=== PATIENT | female | born 1940 | race Caucasian/White ===

== ENCOUNTER 2017-11-27 12:08 | Inpatient (IN) | payer OTHER, MEDICARE ==
[~2017-11-27] VITALS: Ht 152.4 cm; Wt 56.2 kg
[~2017-11-27 12:08] MED LIST: ACETAMINOPHEN500 M4 PO; ALLOPURINOL300 M1 PO; AMIODARONE HCL100 M1 PO; ANASTROZOLE1 M1 PO; ASPIRIN EC81 M1 PO; AUGMENTIN 500-1 EACH PO; CALCIUM500 M1 PO; CYCLOBENZAPRINE10 M1 PO; CYCLOBENZAPRINE5 M2 PO; DULOXETINE HCL30 MG PO; ELIQUIS5 M1 PO; FASLODEX250 MG/5 M; FENTANYL1 EAC4 TOP; FISH OIL 1,0001 EAC2 PO; FUROSEMIDE40 M1 PO; HYDROCODON-ACE1 EAC1 PO; JANUVIA100 M1 PO; LEVOTHYROXINE150 MCG PO; LOSARTAN POTAS100 M1 PO; MAGNESIUM OXID400 M1 PO; MAGNESIUM400 M1 PO; METFORMIN HCL1000 M1 PO; METOPROLOL TART25 M1 PO; MORPHINE SULFAT15 M4 PO; MORPHINE SULFAT30 M7 PO; POTASSIUM CHLO10 ME4 PO; PRAVASTATIN SOD40 M2 PO; PREDNISONE20 M1 PO; PROAIR HFA8.5 GM INH; SYNTHROID125 MCG PO; VITAMIN B-121000 MC3 PO; VITAMIN D31000 UNI1 PO
--- NOTE | 2017-11-27 12:18 | ED DYSPNEA/ASTHMA COMPLAINT ---
History of Present Illness General Chief Complaint: General Adult Stated Complaint: PT HAVING PROBLEM BREATHING Source: patient, family, old records Exam Limitations: no limitations Vital Signs & Intake/Output Vital Signs & Intake/Output Vital Signs Date Time Temp Pulse Resp B/P B/P Pulse O2 O2 Flow FiO2 Mean Ox Delivery Rate 11/27 1257 92 11/27 1220 97.6 69 20 174/69 95 Room Air Allergies Coded Allergies: NO KNOWN ALLERGIES (NKDA) (06/12/13) Reconcile Medications Allopurinol 300 MG TABLET 1 TAB PO DAILY GOUT (Reported) Amiodarone HCl 100 MG TABLET 1 TAB PO DAILY AFIB (Reported) Apixaban (Eliquis) 5 MG TABLET 1 TAB PO BID A FIB (Reported) Aspirin (Ecotrin*) 81 MG TABLET.DR 1 TAB PO QAM HEART/BLOOD (Reported) Calcium Carbonate (Calcium) 500 MG TABLET 1,500 MG PO DAILY SUPPLEMENT ( Reported) Cholecalciferol (Vitamin D3) (Vitamin D3) 1,000 UNIT CAPSULE 1 CAP PO QAM SUPPLEMENT (Reported) Cyanocobalamin (Vitamin B-12) 1,000 MCG TABLET 1 TAB PO DAILY SUPPLEMENT ( Reported) Duloxetine HCl 30 MG CAPSULE.DR 2 TAB PO DAILY DEPRESSION/NERVE PAIN ( Reported) SWITCHED FROM 3 PILLS (90MG) TO 2 PILLS (60MG) DAILY Fentanyl 75 MCG/HOUR PATCH.TD72 1 PAT TOP Q3D PAIN (Reported) Fulvestrant (Faslodex) 250 MG/5 ML SYRINGE BREAST CANCER (Reported) Furosemide 40 MG TABLET 1 TAB PO QAM DIURETIC (Reported) Levothyroxine Sodium (Synthroid) 125 MCG TABLET 1 TAB PO DAILY HYPOTHYROID ( Reported) Magnesium Oxide 400 MG TABLET 1 TAB PO BID SUPPLEMENT (Reported) Metoprolol Tartrate 25 MG TABLET 1 TAB PO BID HEART/BP (Reported) Morphine Sulfate 30 MG TABLET 1 TAB PO 4 TIMES/DAY PAIN (Reported) [place]-3/Dha/Epa/Fish Oil (Fish Oil 1,000 MG Softgel) 1 EACH CAPSULE 1 CAP PO DAILY SUPPLEMENT (Reported) Potassium Chloride 10 MEQ TABLET.ER 2 TAB PO QPM SUPPLEMENT (Reported) Pravastatin Sodium 40 MG TABLET 1 TAB PO QPM CHOLESTEROL (Reported) Triage Nurses Notes Reviewed? yes Onset: Abrupt Duration: week(s): (2), constant, getting worse Timing: recent history Severity: moderate Prior Episodes/Possible Cause: occasional episodes Associated Symptoms: cough, wheezing HPI: 77 year old female with history of CAD S/P stent, Invasive ductal left breast carcinoma status post mastectomy on 03/08/2011, followed by chemotherapy, radiation with the spine/pelvis metastasis now on CHEMOtherapy w/ dr meng, HTN, HDL, DM, hypothyroidism, history of atrial fibrillation on a eliqus, presents tot he ER complaining of progressively worsening shortness of breath and nonproductive cough for the past 2 weeks getting worse she ran out of all of her inhalers and nebulizer medications a few weeks ago. She called her cognos bi administrator Dr. Carter who advised that she come to the ER. She denies fevers chills chest pain leg swelling abdominal pain. (Jonathan Stack) Past History Travel History Traveled to [place] past 21 day No Medical History Any Pertinent Medical History? see below for history Neurological: ALZHEIMERS? 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 No (Jonathan Stack) Review of Systems Review of Systems Constitutional: Reports: see HPI. Comments Review of systems: See HPI, All other systems negative. Constitutional, no chills no fever HEENT: no sore throat no congestion Cardiovascular: No chest pain Skin: no rashes, no change in skin Respiratory: dyspnea cough no sputum GI: No nausea no vomiting, no diarrhea : No dysuria Muscle skeletal: No joint pain, no back pain, no neck pain Neurologic: , no headache Psych: No stress Heme/endocrine: No bruising (Jonathan Stack) Physical Exam Physical Exam General Appearance: cachetic Respiratory: wheezing Comments: Well-developed well-nourished person in no acute distress HEENT: Normal EENT exam; PERRL, EOMI, HEAD is atraumatic. moist mucous membranes. Neck: Supple, normal range of motion Back:Full range of motion Cardiovascular: Regular rate and rhythms no murmurs rub Respiratory: Chest nontender.There were no bony deformities, no asymmetry. No respiratory distress. Patient speaking in 3-4 word sentences diffuse wheezing bilaterally no rhonchi no rales Abdomen: Soft, nontender nondistended, no appreciable organomegaly. Normal bowel sounds. No rebound/guarding, No ascites. Extremity: No edema, full range of motion of extremities, Neuro: Alert oriented x3, motor sensory normal, There were no obvious focal neurologic abnormalities. Skin: No appreciable rash on exposed skin, skin is warm and dry. Psych: Mood and affect is normal, memory and judgment is normal. Core Measures ACS in differential dx? Yes CVA/TIA Diagnosis No Sepsis Present: No Sepsis Focused Exam Completed? No (Matthew TAPIA,Jonathan) Progress Differential Diagnosis: asthma, AMI, bronchitis, CHF, COPD, pulmonary embolism, pneumonia, pneumothorax, unstable angina Plan of Care: Orders Procedure Date/time Status CBC WITHOUT DIFFERENTIAL 11/28 0600 Active BASIC ELECTROLYTES PLUS BUN&CR 11/28 0600 Active Heart Healthy Diet 11/27 D Active Pathway - chart 11/27 1642 Active TRC EVALUATION (GEN) 11/27 1526 Active Pathway - chart 11/27 1526 Active House Staff 11/27 1526 Active Code Status 11/27 1526 Active Patient Data 11/27 1414 Active ED Holding Orders 11/27 1346 Active Admit to inpatient 11/27 1346 Active Vital Signs 11/27 1346 Active Code Status 11/27 1346 Complete Intake & Output 11/27 1330 Active VIRAL CULTURE 11/27 1305 Active PROTHROMBIN TIME 11/27 1239 Complete EKG 11/27 1220 Active Telemetry/Seismology Technical Officer 11/27 1219 Active RAPID VIRAL INFLUENZA A 11/27 1219 Complete BLOOD CULTURE 11/27 1219 Active TROPONIN LEVEL 11/27 1219 Complete COMPREHENSIVE METABOLIC PANEL 11/27 1219 Complete CBC WITHOUT DIFFERENTIAL 11/27 1219 Complete B-TYPE NATRIURETIC PEP (BNP) 11/27 1219 Complete VTE Mechanical Prophylaxis 11/27 UNK Active Intake & Output 11/27 UNK Active Activity/Ambulation 11/27 UNK Active Current Medications Sig/Ck Start time Last Medication Dose Stop Time Status Admin Allopurinol 300 MG DAILY 11/28 1000 AC (Zyloprim) Aspirin Buffered 81 MG QAM 11/28 1000 AC (Ecotrin) Calcium Carbonate 1,500 MG DAILY 11/28 1000 AC (TUMS) Cholecalciferol 1,000 IU DAILY 11/28 1000 AC (Vitamin D) Cyanocobalamin 1,000 MCG DAILY 11/28 1000 AC (Vitamin B12) Fish Oil 1,050 MG DAILY 11/28 1000 AC ([place]-3) Levothyroxine Sodium 0.125 MG DAILY 11/28 1000 AC (Synthroid) Oseltamivir Phosphate 30 MG DAILY 11/28 1000 AC (Tamiflu) 12/02 0959 Apixaban 5 MG BID 11/27 2200 AC (Eliquis) Methylprednisolone 40 MG Q6 11/27 1800 AC (Solumedrol) Atorvastatin Calcium 40 MG 1700 11/27 1700 AC (Lipitor) Acetaminophen 650 MG Q6P PRN 11/27 1645 UNVr (Tylenol) Acetaminophen 1,000 MG Q6P PRN 11/27 1645 UNVr (Ofirmev) Polyethylene Glycol 17 GM AT BEDTIME PRN 11/27 1645 UNVr (Miralax) Senna/Docusate Sodium 1 TAB AT BEDTIME PRN 11/27 1645 UNVr (Senokot S) Metoprolol Tartrate 25 MG BID 11/27 1534 AC (Lopressor) Furosemide 40 MG QAM 11/27 1533 AC (Lasix) Duloxetine HCl 60 MG DAILY 11/27 1531 AC (Cymbalta) Fentanyl Citrate 75 MCG Q3D 11/27 1530 AC (Duragesic) Magnesium Oxide 400 MG BID 11/27 1530 AC (Mag-Ox) Amiodarone HCl 100 MG DAILY 11/27 1528 AC (Cordarone) Oseltamivir Phosphate 75 MG ONCE ONE 11/27 1400 CAN (Tamiflu 75MG) 11/27 1401 Laboratory Tests 11/27/17 1305: Virus Culture Pending 11/27/17 1259: Anion Gap 10, Estimated GFR 54 L, BUN/Creatinine Ratio 13.0, Glucose 99, Calcium 9.5, Total Bilirubin 0.3, AST 55 H, ALT 39, Alkaline Phosphatase 178 H , Troponin I 0.05, Too-Q-Hcmimqazuwk Pept 6640 H, Total Protein 6.5, Albumin 3.9, Globulin 2.6, Albumin/Globulin Ratio 1.5, PT 13.2 H, INR 1.26 H, CBC w Diff NO MAN DIFF REQ, RBC 3.77 L, MCV 80.8 L, MCH 25.8 L, MCHC 32.0 L, RDW 17.4 H, MPV 8.7, Gran % 48.8, Lymphocytes % 39.5, Monocytes % 9.1, Eosinophils % 2.5, Basophils % 0.1, Absolute Granulocytes 1.8, Absolute Lymphocytes 1.5, Absolute Monocytes 0.3, Absolute Eosinophils 0.1, Absolute Basophils 0 Microbiology 11/27 1323 BLOOD: Blood Culture - RECD 11/27 1305 NASOPHARYN: Influenza Virus A & B Rapid Smear - COMP INFLUENZA TYPE A 11/27 1259 BLOOD: Blood Culture - RECD PT MED WITH SOLUMEDROL 125MG IV, DUONEB, LABS ORDERED. CASE D/W DR SÁNCHEZ AGREES WITH PLAN PT FEELING IMPROVED AFTER BREATHING [place] 1330- PT SEEN BY DR CARTER IN DEPT AFTER DISCUSSION WITH PT AND FAMILY THEY ARE IN AGREEMENT WITH PLAN AND NEED FOR ADMISSION lorrie spoke with dr rudd will admit Diagnostic Imaging: Viewed by Me: Radiology Read. Discussed w/RAD: Radiology Read. Radiology Impression: PATIENT: LINDA APODACA PRESENT AGE: 77 PATIENT ACCOUNT NO: [id number] : 40 LOCATION: [facility] ORDERING PHYSICIAN: Jonathan TAPIA SERVICE DATE: 11/27/17-1232 EXAM TYPE: RAD - XRY- PORTABLE CHEST XRAY EXAMINATION: XR PORTABLE CHEST CLINICAL INFORMATION: Cough, dyspnea COMPARISON: 05/10/2016 TECHNIQUE: Portable frontal view of the chest was obtained. FINDINGS: Chronic right rib fracture deformities again seen. Degenerative changes of the bilateral shoulders. Left axillary surgical clips. Cardiac silhouette remains prominent. There is diffuse interstitial prominence, similar to the prior study. No focal consolidation or mass. No pleural effusion or pneumothorax. IMPRESSION: Chronic diffuse interstitial opacity, most likely representing chronic bronchitis or reactive airways disease. No acute pulmonary disease seen. DICTATED BY: Jamil Summers MD DATE/TIME DICTATED:11/27/171305 STATION CAPTAIN:SHAHLA DATE/TIME TRANSCRIBED:11/27/171305 CONFIDENTIAL, DO NOT COPY WITHOUT APPROPRIATE AUTHORIZATION. <Electronically signed in Other Vendor System> SIGNED BY: Jamil Summers MD 11/27/17 1312 Initial ED EKG: normal intervals, normal p-waves, normal QRS complex, normal sinus rhythm Prior EKG: unchanged Rhythm Strip: normal sinus rhythm (Jonathan Stack) Departure Departure Time of Disposition: 1438 Disposition: STILL A PATIENT Condition: Stable Clinical Impression Primary Impression: Influenza Secondary Impressions: COPD exacerbation Referrals: Judith Carter Departure Forms: Customer Survey General Discharge Information Admission Note Spoke With: Ramandeep Macias MD Documentation of Exam: Documentation of any treatments & extenuating circumstances including Concerns Regarding Discharge (functional status, medication knowledge or non-compliance, living conditions, etc.) that warrant an admission rather than observation: PULM CONSULT, IV STEROIDS, TREND LABS AND CULTUERS, RESP TX PRN, PREMATURE DISCHARGE WOULD BE MEDICALLY HARMFUL (Jonathan Stack) PA/MEDICAL ENGINEER Co-Sign Statement Statement: ED Attending supervision documentation- [X] I saw and evaluated the patient. I have also reviewed all the pertinent lab results and diagnostic results. I agree with the findings and the plan of care as documented in the PA's/MEDICAL ENGINEER's documentation. [] I have reviewed the ED Record and agree with the PA's/MEDICAL ENGINEER's documentation. [] Additions or exceptions (if any) to the PAs/MEDICAL ENGINEER's note and plan are summarized below: [] (Kana Sánchez DO) Critical Care Note Critical Care Note Critical Care Time: non-applicable (Jonathan Stack)
[2017-11-27] MEDS ORDERED: MORPHINE SULFAT30 M7 PO (12:36)
--- NOTE | 2017-11-27 13:12 | RADIOLOGY REPORT ---
EXAMINATION: XR PORTABLE CHEST CLINICAL INFORMATION: Cough, dyspnea COMPARISON: 05/10/2016 TECHNIQUE: Portable frontal view of the chest was obtained. FINDINGS: Chronic right rib fracture deformities again seen. Degenerative changes of the bilateral shoulders. Left axillary surgical clips. Cardiac silhouette remains prominent. There is diffuse interstitial prominence, similar to the prior study. No focal consolidation or mass. No pleural effusion or pneumothorax. IMPRESSION: Chronic diffuse interstitial opacity, most likely representing chronic bronchitis or reactive airways disease. No acute pulmonary disease seen.
[2017-11-27 13:23] LABS: ABSOLUTE BASOPHIL COUNT 0 /CUMM (0.0-0.2); ABSOLUTE EOSINOPHIL COUNT 0.1 /CUMM (0.0-0.7); ABSOLUTE GRANULOCYTE CT 1.8 /CUMM (1.4-6.5); ABSOLUTE LYMPH COUNT 1.5 /CUMM (1.2-3.4); ABSOLUTE MONOCYTE COUNT 0.3 /CUMM (0.10-0.60); BASOPHIL % 0.1 % (0.0-2.0); EOSINOPHIL % 2.5 % (0-5); GRANULOCYTE % 48.8 % (42.2-75.2); HEMATOCRIT 30.5 % (37-47); MEAN CORPUSCULAR HGB 25.8 PG (27.0-31.0); MEAN CORPUSCULAR VOLUME 80.8 FL (81.0-99.0); MEAN PLATELET VOLUME 8.7 FL (7.4-10.4); PLATELET COUNT 213 /CUMM (130-400); RBC DISTRIBUTION WIDTH 17.4 % (11.5-14.5); RED BLOOD CELL CT 3.77 /CUMM (4.20-5.40); WHITE BLOOD CELL COUNT 3.8 /CUMM (4.8-10.8)
[2017-11-27 13:30] LABS: PT 13.2 SEC (9.4-12.5)
--- NOTE | 2017-11-27 14:45 | History & Physical ---
Denise Milligan 11/27/17 1445: General Information and HPI MD Statement: I have seen and personally examined LINDA LENTZ and documented this H&P. The patient is a 77 year old F who presented with a patient stated chief complaint of [Shortness of breath]. Source of Information: patient, family Exam Limitations: no limitations History of Present Illness: Ms. Lentz is a 73 year F with PMH of CAD S/P stent, Invasive ductal left breast carcinoma status post mastectomy on 03/08/2011, followed by chemotherapy, radiation and anastrazole for lymph node positive disease, with the spine/pelvis metastasis now on radiotherapy and 04/30, HTN, HDL, DM, hypothyroidism, history of atrial fibrillation on a eliqus, Osteoarthritis, GERD, history of compression fractures presented to the [facility] with worsening shortness of breath and nonproductive cough for the past 2 weeks, and progressively getting worse, since patient ran out of all of her inhalers and nebulizer medications a few weeks ago. She called her flight engineer helicopter Dr. Jean-Baptiste who advised that she come to the ER. Of note, patient had a "jaw infection" who was given augmentin x 6 weeks prior this admission. Patient denied fever/night sweat/weight change/mood change/insomnia, dietary/ appetite change. Patient denied Chest Pain/Palpitation/exercise intolerance/Abdominal pain, bowel movement/urinary abnormality, or other skin/musculoskeletal/neurological disorders. Allergies/Medications Allergies: Coded Allergies: NO KNOWN ALLERGIES (NKDA) (06/12/13) Home Med list Allopurinol 300 MG TABLET 1 TAB PO DAILY GOUT (Reported) Amiodarone HCl 100 MG TABLET 1 TAB PO DAILY AFIB (Reported) Apixaban (Eliquis) 5 MG TABLET 1 TAB PO BID A FIB (Reported) Aspirin (Ecotrin*) 81 MG TABLET.DR 1 TAB PO QAM HEART/BLOOD (Reported) Calcium Carbonate (Calcium) 500 MG TABLET 1,500 MG PO DAILY SUPPLEMENT ( Reported) Cholecalciferol (Vitamin D3) (Vitamin D3) 1,000 UNIT CAPSULE 1 CAP PO QAM SUPPLEMENT (Reported) Cyanocobalamin (Vitamin B-12) 1,000 MCG TABLET 1 TAB PO DAILY SUPPLEMENT ( Reported) Duloxetine HCl 30 MG CAPSULE.DR 2 TAB PO DAILY DEPRESSION/NERVE PAIN ( Reported) SWITCHED FROM 3 PILLS (90MG) TO 2 PILLS (60MG) DAILY Fentanyl 75 MCG/HOUR PATCH.TD72 1 PAT TOP Q3D PAIN (Reported) Fulvestrant (Faslodex) 250 MG/5 ML SYRINGE BREAST CANCER (Reported) Furosemide 40 MG TABLET 1 TAB PO QAM DIURETIC (Reported) Levothyroxine Sodium (Synthroid) 125 MCG TABLET 1 TAB PO DAILY HYPOTHYROID ( Reported) Magnesium Oxide 400 MG TABLET 1 TAB PO BID SUPPLEMENT (Reported) Metoprolol Tartrate 25 MG TABLET 1 TAB PO BID HEART/BP (Reported) Morphine Sulfate 30 MG TABLET 1 TAB PO 4 TIMES/DAY PAIN (Reported) Rhodes-3/Dha/Epa/Fish Oil (Fish Oil 1,000 MG Softgel) 1 EACH CAPSULE 1 CAP PO DAILY SUPPLEMENT (Reported) Potassium Chloride 10 MEQ TABLET.ER 2 TAB PO QPM SUPPLEMENT (Reported) Pravastatin Sodium 40 MG TABLET 1 TAB PO QPM CHOLESTEROL (Reported) Past History Travel History Traveled to [place] past 21 day No Medical History Neurological: ALZHEIMERS? 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 Exam & Diagnostic Data Last 24 Hrs of Vital Signs/I&O Vital Signs Date Time Temp Pulse Resp B/P B/P Pulse O2 O2 Flow FiO2 Mean Ox Delivery Rate 11/27 1257 92 11/27 1220 97.6 69 20 174/69 95 Room Air Intake & Output 11/27 1600 11/27 0800 11/27 0000 Intake Total 0 Output Total Balance 0 Intake, Oral 0 Patient 56.245 kg Weight Weight Reported by Patient Measurement Method Physical Exam General Appearance Alert, Oriented X3, Cooperative, No Acute Distress Skin No Significant Lesion Skin Temp/Moisture Exam: Warm/Dry Sepsis Skin Exam (color): Normal for Ethnicity HEENT Atraumatic, PERRLA Neck Supple, No JVD Cardiovascular Regular Rate, Normal S1, Normal S2 Lungs Normal Air Movement, Bilateral wheezing Abdomen Normal Bowel Sounds, Soft, No Tenderness Neurological Normal Speech, Strength at 5/5 X4 Ext Extremities No Cyanosis, No Edema, Normal Pulses Last 24 Hrs of Labs/Anthony: Laboratory Tests 11/27/17 1305: Virus Culture Pending 11/27/17 1259: Anion Gap 10, Estimated GFR 54 L, BUN/Creatinine Ratio 13.0, Glucose 99, Calcium 9.5, Total Bilirubin 0.3, AST 55 H, ALT 39, Alkaline Phosphatase 178 H , Troponin I 0.05, Gyr-Z-[place]qb Pept 6640 H, Total Protein 6.5, Albumin 3.9, Globulin 2.6, Albumin/Globulin Ratio 1.5, PT 13.2 H, INR 1.26 H, CBC w Diff NO MAN DIFF REQ, RBC 3.77 L, MCV 80.8 L, MCH 25.8 L, MCHC 32.0 L, RDW 17.4 H, MPV 8.7, Gran % 48.8, Lymphocytes % 39.5, Monocytes % 9.1, Eosinophils % 2.5, Basophils % 0.1, Absolute Granulocytes 1.8, Absolute Lymphocytes 1.5, Absolute Monocytes 0.3, Absolute Eosinophils 0.1, Absolute Basophils 0 Microbiology 11/27 1323 BLOOD: Blood Culture - RECD 11/27 1305 NASOPHARYN: Influenza Virus A & B Rapid Smear - COMP INFLUENZA TYPE A 11/27 1259 BLOOD: Blood Culture - RECD Diagnostic Data EKG Results NSR w/o ST-T abnormality Assessment/Plan Assessment: Ms. Lentz is a 73 year F with PMH of CAD S/P stent, Invasive ductal left breast carcinoma status post mastectomy on 03/08/2011, followed by chemotherapy, radiation and anastrazole for lymph node positive disease, with the spine/pelvis metastasis now on radiotherapy and 04/30, HTN, HDL, DM, hypothyroidism, history of atrial fibrillation on a eliqus, Osteoarthritis, GERD, history of compression fractures presented to the [facility] ER with worsening shortness of breath and nonproductive cough for the past 2 weeks, and progressively getting worse, since patient ran out of all of her inhalers and nebulizer medications a few weeks ago. She called her flight engineer helicopter Dr. Jean-Baptiste who advised that she come to the ER. Of note, patient had a "jaw infection" who was given augmentin x 6 weeks prior this admission. On admission, ER Course: Vitals stable afebrile, with BP 174/69, non tachy, RR 20 Physical exam as above -CBC: WBC 3.8, H/H 9.7/30.5, PLT 213 -BMP: Unremarkable except HCO3 33, AlkPhos 178, ProBNP 6640 (986 in 2016) -Misc: PT/INR 13.2/1.26, Influenza Type A positive. -CXR: Chronic diffuse interstitial opacity, most likely representing chronic bronchitis or reactive airways disease. No acute pulmonary disease seen. -EKG: Normal sinus rhythm without significant ST-T abnormalities. -Interventions in ER: Nebs + Solumedrol x 1, Tamiflu 30mg x 1 Assessment: Ms. Lentz is a 73 year F with PMH of CAD S/P stent, Invasive ductal left breast carcinoma status post mastectomy on 03/08/2011, followed by chemotherapy, radiation and anastrazole for lymph node positive disease, with the spine/pelvis metastasis now on radiotherapy and 04/30, HTN, HDL, DM, hypothyroidism, history of atrial fibrillation on a eliqus, Osteoarthritis, GERD, history of compression fractures presented to the [facility] ER with worsening shortness of breath and nonproductive cough for the past 2 weeks. Patient's being afebrile and no elevation of WBC, however positive for previous COPD exacerbation with now wheezing, and also Rapid Flu A positive. Thus both Flu and COPD may contribute to the onset and progressive worsening of dyspnea. Patient's imaging was negative for consolidations however pneumonia would be unlikely unless delayed imaging evidence Problem list #COPD Exacerbation #Influenza Type A #Chronic conditions including CAD, Left Breast CA w/ spine/pelvis metastasis, HTN, HDL, DM, hypothyroidism, A-fib on eliqus, Osteoarthritis, GERD, Plan - Admit to Gen Med - Supplemental O2 as needed (currently satting well under RA) - TRC/Neb - Started Solumedrol 40mg IV q6 - Started Tamiflu 30mg qd, day 1 - Continued home meds including Synthroids, B12/Rhodes-3/V-D/MgOx, Tums, Aspirin 81, Allopurinol 300mg qd, Eliquis 5mg BID, Amiodarone 100mg qd, Metoprolol 25mg BID, Lasix 40mg qd, Cymbalta 60mg qd, Fentanyl Patch, - Pending Pulm consult on Dr. Jean-Baptiste - Pending final blood culture. DVT prophylaxis Eliquis + ALPS Heart Healthy Diet Full Code As Ranked By This Provider Problem List: 1. COPD exacerbation 2. Influenza Core Measures/Misc (06/29) Acute Coronary Syndrome ACS Diagnosis: No Congestive Heart Failure Congestive Heart Failure Diagnosis No Cerebrovascular Accident CVA/TIA Diagnosis: No VTE (View Protocol) VTE Risk Factors Age>40 No Mechanical VTE Prophylaxis d/t N/A MechProphylax Ordered No VTE Pharm Prophylaxis d/t NA PharmProphylax ordered Sepsis (View protocol) Sepsis Present: No Ana Ontiveros 11/27/17 1447: Attending MD Review Statement Attending Statement Attending MD Statement: examined this patient, discuss w/resident/PA/INLETTER, agreed w/resident/PA/INLETTER, discussed with family, reviewed EMR data (avail), discussed with nursing, discussed with case mgmt, reviewed images, amended to note Attending Assessment/Plan: 77 o/f with pmh of CAD S/P stent, Invasive ductal left breast carcinoma status post mastectomy on 03/08/2011, followed by chemotherapy, radiation and anastrazole for lymph node positive disease, with the spine/pelvis metastasis now on radiotherapy and 04/30, HTN, HDL, DM, hypothyroidism, history of atrial fibrillation on a eliqus, Osteoarthritis, GERD, history of compression fractures presented to the [facility] ER with CC of SOB, cough and congestion for past few days. Patient is found to have b/l wheezing on exam. Patient denies chest pain, leg swelling, no jvd appreciated. Labs wbc 3.8 hb 9.7 plt 213 CR 1.0 hco3 33 BNP 6640. Vitals 97.6 69 174/69 92-95 RA. Chest xray with diffuse interstitial opacities. EKG sinus ryhtm with no acute changes. ECHO 2106 with preserved EF 60%. ASSESSMENT AND PLAN Patient admitted to [facility] for Acute respiratroy insufficiency from COPD exacerbation 2/2 viral bronchitis and positive influenza. Patient will be started on iv steroids, antibiotics, tamiflu, oxygen supplementation prn, bronchodilators, Pulmonary consult Dr Jean-Baptiste. Serial cardiac enzmyes r/o NH. Contine home meds. gi/dvt prophyalxis Adnrés SILVERIO,Arturo 11/27/17 2739: Resident Review Statement Resident Statement: examined this patient, discussed with automotive internet sales manager, agreed with automotive internet sales manager, discussed with family, reviewed EMR data (avail), discussed with nursing , discussed with case mgmt, reviewed images, amended to note Other Findings: 77 yo F with pmh of CAD S/P stent, Invasive ductal left breast carcinoma status post mastectomy on 03/08/2011, followed by chemotherapy, radiation and anastrazole for lymph node positive disease, with the spine/pelvis metastasis s/ p radiotherapy, HTN, HDL, DM, hypothyroidism, history of atrial fibrillation on a eliqus, Osteoarthritis, GERD, history of compression fractures presented to the emergency department with worsening shortness of breath that initially had started on Friday. She reports that it started with a dry cough on Friday and some shortness of breath, which gradually worsened to the point where she could not breathe and called her flight engineer helicopter Dr. Tovar who suggested her to go to the emergency department today. She declines any fever, chills, chest pain, palpitation, chest pressure, leg swelling more than usual, recent travel. Her lives with her was also having similar upper respiratory tract infection on Friday but got better, no other sick contacts prior to that. Of note, she was seen by her dentist and was told that she has a jaw infection and was prescribed antibiotics for the next 6 weeks, which she was taking until last night. She has not taken any of her medications this morning. She does not take any oxygen at home. Her last admission at [facility] was from 05/07/2016 to 2015 for acute hypoxic respiratory failure secondary to multilobar pneumonia. Vitals, physical examination, and labs as mentioned above. Of note, she tested positive for influenza type A. We are admitting her in general medical floor for management of following issues : #Acute exacerbation of COPD Patient's clinical picture is suggestive of acute exacerbation of COPD, likely due to influenza infection. We will continue to treat her with Tamiflu, IV Solu -Medrol 40 mg every 6, TRC/neb, supplemental oxygen as needed, and will also send additional labs for urinary strep and Legionella, and lower respiratory culture, to rule out any bacterial infections that would otherwise require antibiotics. Pulmonary consultation with Dr. Jean-Baptiste to be requested. #We will continue rest of her home medications. Of note, I'm not resuming her home medication of opiate for the fact that she is currently having respiratory difficulty, will manage her pain with by mouth and IV acetaminophen. We will manage her severe pain, if it offers, after assessing her condition. Heart healthy diet DVT prophylaxis with Eliquis and Alps Full code.
[2017-11-27 22:00] VITALS: BP 130/62
[2017-11-27 23:36] VITALS: BP 144/70
--- NOTE | 2017-11-28 00:03 | Event Note ---
Event Note Event Note: The P.t Has positive troponin of 0.34, we obtained EKG that showed T-wave inversion in V2 otherwise no acute change in comparing with EKG on admission. Patient sleeping, comfortable she denies any chest pain, heart racing, difficulty breathing. Patient transferred to telemetry for close monitoring and serial troponin and EKG trending. She is already anticoagulation on Eliquis twice daily, metoprolol, atorvastatin 40 mg and baby aspirin. We gave the patient full dose of aspirin. We spoke with her health science specialist Dr. Petty and we informed him about her current condition he advised to continue the current management for now and agreed with assessment and plan. Patient family has been was notify by the night gallery intern.
[2017-11-28 01:13] VITALS: BP 120/60
[2017-11-28 05:00] LABS: ABSOLUTE BASOPHIL COUNT 0 /CUMM (0.0-0.2); ABSOLUTE EOSINOPHIL COUNT 0 /CUMM (0.0-0.7); ABSOLUTE GRANULOCYTE CT 2.7 /CUMM (1.4-6.5); ABSOLUTE LYMPH COUNT 0.9 /CUMM (1.2-3.4); ABSOLUTE MONOCYTE COUNT 0.1 /CUMM (0.10-0.60); BASOPHIL % 0 % (0.0-2.0); EOSINOPHIL % 0 % (0-5); HEMATOCRIT 29.8 % (37-47); MEAN CORPUSCULAR HGB 25.8 PG (27.0-31.0); MEAN CORPUSCULAR HGB CONC 32.2 G/DL (33.0-37.0); MEAN CORPUSCULAR VOLUME 80.4 FL (81.0-99.0); MEAN PLATELET VOLUME 8.7 FL (7.4-10.4); PLATELET COUNT 216 /CUMM (130-400); RBC DISTRIBUTION WIDTH 18.3 % (11.5-14.5); RED BLOOD CELL CT 3.71 /CUMM (4.20-5.40); WHITE BLOOD CELL COUNT 3.6 /CUMM (4.8-10.8)
[2017-11-28 05:22] LABS: GRANULOCYTE % 73.9 % (42.2-75.2)
--- NOTE | 2017-11-28 07:42 | PN- Housestaff ---
Karri SILVERIO,[facility] 11/28/17 0742: Subjective Follow-up For: COPD Exacerbation Influenza Type A Type 2 PA Subjective: Patient seen and examined. Pt is TELE hold in ICU. She is currently being treated for influenza and COPD exacerbation. She reports improvement in her symptoms. Continues to have shortness of breath. Much improved than before. Denies any fevers and chills denies any chest pain or palpitations. Tmax 98.4 HR 50s to 60s RR 20 BP ranging 170sto 120s/70s to 60s satting 100% on 2L WBC count 3.9, H/H9.6/29 platelet count 216, HCO3 31, Trops 0.34, 0.44, third one pending Patient was transferred yesterday in light of trending troponins were P-wave inversion in V2. She is already anticoagulation on Eliquis twice daily, metoprolol, atorvastatin 40 mg and baby aspirin. She received down from aspirin and Dr. Petty was consulted who advised to continue current management. She is guaiac-positive Review of Systems Constitutional: Reports: see HPI. Cardiovascular: Denies: chest pain. Objective Last 24 Hrs of Vital Signs/I&O Vital Signs Date Time Temp Pulse Resp B/P B/P Pulse O2 O2 Flow FiO2 Mean Ox Delivery Rate 11/28 1057 64 11/28 1004 63 126/68 11/28 0947 96 Nasal 2.0L Cannula 11/28 0113 56 20 120/60 100 Nasal 2.0L Cannula 11/28 0000 Nasal 2.0L Cannula 11/27 2336 98.4 64 20 144/70 94 Room Air 11/27 2200 64 130/62 11/27 2123 Room Air 11/27 2059 64 130/62 11/27 2033 94 Room Air 11/27 1720 98.6 64 20 161/71 95 Room Air 11/27 1257 92 Intake & Output 11/28 1600 11/28 0800 11/28 0000 Intake Total 100 250 Output Total 600 Balance 100 -350 Intake, IV 100 Intake, Oral 100 150 Number 0 Bowel Movements Output, Urine 600 Patient 124 lb Weight Physical Exam General Appearance: Alert, Oriented X3, Cooperative Skin: No Rashes HEENT: Atraumatic Neck: Supple Cardiovascular: Normal S1, Normal S2 Lungs: DIFFUSE WHEEZING Abdomen: Normal Bowel Sounds, Soft Neurological: Normal Gait, Normal Speech Extremities: No Edema Current Medications: Current Medications Sig/Ck Start time Last Medication Dose Route Stop Time Status Admin Acetaminophen 650 MG Q6P PRN 11/27 1645 AC PO Acetaminophen 1,000 MG Q6P PRN 11/27 1645 AC 11/27 IV 2050 Albuterol Sulfate 3 ML EVERY 4 HRS/AWAKE 11/28 0800 AC 11/28 INH 1251 Allopurinol 300 MG DAILY 11/28 1000 AC 11/28 PO 1057 Amiodarone HCl 100 MG DAILY 11/27 1528 AC 11/28 PO 1004 Apixaban 5 MG BID 11/27 2200 DC 11/28 PO 1005 Aspirin 325 MG ONCE ONE 11/27 2345 DC 11/27 PO 11/27 2346 2348 Aspirin Buffered 81 MG QAM 11/28 1000 AC 11/28 PO 1005 Atorvastatin Calcium 80 MG 1700 11/28 1700 AC PO Atorvastatin Calcium 40 MG 1700 11/27 1700 DC 11/27 PO 1800 Calcium Carbonate 1,500 MG DAILY 11/28 1000 AC 11/28 PO 1100 Cholecalciferol 1,000 IU DAILY 11/28 1000 AC 11/28 PO 1057 Cyanocobalamin 1,000 MCG DAILY 11/28 1000 AC 11/28 PO 1057 Duloxetine HCl 60 MG DAILY 11/27 1531 AC 11/28 PO 1005 Fentanyl Citrate 75 MCG Q3D 11/27 1530 AC 11/27 TOP 1800 Fish Oil 1,050 MG DAILY 11/28 1000 AC 11/28 PO 1100 Furosemide 0 .STK-MED ONE 11/27 1752 DC PO Furosemide 40 MG QAM 11/27 1533 AC 11/28 PO 1005 Levothyroxine Sodium 0.125 MG DAILY 11/28 1000 AC 11/28 PO 1057 Magnesium Oxide 400 MG BID 11/27 1530 AC 11/28 PO 1100 Methylprednisolone 40 MG Q6 11/27 1800 AC 11/28 IV 1216 Methylprednisolone 0 .STK-MED ONE 11/27 1752 DC .ROUTE Methylprednisolone 0 .STK-MED ONE 11/27 1321 DC .ROUTE Metoprolol Tartrate 25 MG BID 11/27 1534 AC 11/28 PO 1057 Oseltamivir Phosphate 30 MG BID 11/28 1018 AC 11/28 PO 12/02 1017 1057 Oseltamivir Phosphate 75 MG BID 11/28 1016 DC PO 12/02 1015 Oseltamivir Phosphate 30 MG DAILY 11/28 1000 DC PO 12/02 0959 Oseltamivir Phosphate 75 MG ONCE ONE 11/27 1400 CAN PO 11/27 1401 Oseltamivir Phosphate 30 MG ONCE ONE 11/27 1400 DC 11/27 PO 11/27 1401 1553 Polyethylene Glycol 17 GM AT BEDTIME PRN 11/27 1645 AC PO Potassium Chloride 20 MEQ ONCE ONE 11/28 1015 DC 11/28 PO 11/28 1016 1058 Potassium Chloride 40 MEQ ONCE ONE 11/28 0815 CAN PO 11/28 0816 Senna/Docusate Sodium 1 TAB AT BEDTIME PRN 11/27 1645 AC PO Last 24 Hrs of Lab/Anthony Results Last 24 Hrs of Labs/Mics: Laboratory Tests 11/28/17 1010: Troponin I 0.37 *H 11/28/17 0430: Anion Gap 12, Estimated GFR > 60, BUN/Creatinine Ratio 18.9, Magnesium 2.1, Troponin I 0.44 *H, CBC w Diff NO MAN DIFF REQ, RBC 3.71 L, MCV 80.4 L, MCH 25.8 L, MCHC 32.2 L, RDW 18.3 H, MPV 8.7, Gran % 73.9, Lymphocytes % 23.4, Monocytes % 2.7, Eosinophils % 0, Basophils % 0, Absolute Granulocytes 2.7, Absolute Lymphocytes 0.9 L, Absolute Monocytes 0.1, Absolute Eosinophils 0, Absolute Basophils 0 11/28/17 0400: Troponin I Cancelled 11/27/17 2245: Troponin I 0.34 *H Microbiology 11/28 1200 URINE ROUT: Legionella Antigen - RECD 11/28 1200 URINE ROUT: Streptococcus pneumoniae Antigen (M - RECD 11/28 0545 UPPER RESP: Surveillance Culture - RECD 11/28 0020 GI: Surveillance Culture - CAN Cancelled: Cancelled via OE: PT REFUSED 11/27 2215 LOWER RESP: Respiratory Culture - COLB 11/27 2215 LOWER RESP: Gram Stain - COLB 11/27 1323 BLOOD: Blood Culture - RES Assessment/Plan Assessment: Ms. Lentz is a 73 year F with PMH of CAD S/P stent, Invasive ductal left breast carcinoma status post mastectomy on 03/08/2011, followed by chemotherapy, radiation and anastrazole for lymph node positive disease, with the spine/pelvis metastasis now on radiotherapy and 04/30, HTN, HDL, DM, hypothyroidism, history of atrial fibrillation on a eliqus, Osteoarthritis, GERD, history of compression fractures presented to the [facility] ER with worsening shortness of breath and nonproductive cough for the past 2 weeks, and progressively getting worse, since patient ran out of all of her inhalers and nebulizer medications a few weeks ago. She called her principal systems architect Dr. Jean-Baptiste who advised that she come to the ER. Of note, patient had a "jaw infection" who was given augmentin x 6 weeks prior this admission. She was tested positive for flu. She was being treated for acute exacerbation of COPD and influenza on general medicine floor. Patient had up trending troponins and was transferred to ICU as telemetry hold yesterday. The patient is currently being treated and evaluated for following conditions #Acute COPD exacerbation with influenza A We're going to treat patient for COPD exacerbation and started on Tamiflu. -Supplemental O2 as needed (currently satting well under RA) -TRC/Neb with ipratropium and albuterol for wheezing -Flovent 110 2 puff bid -We will D/C steriods as per pulm reccs -Consider addition of Zpack? -Tamiflu 30 mg twice a day dose confirmed from pharmacy after considering renal clearance. -Pulmonology consult with Dr. Jean-Baptiste -Blood cultures no growth so far -Sputum cultures pending -Urine strep and Legionella pending -Repeat chest x-ray in am -Monitor fever and WBC curve expect a bump in WBC curve secondary to steroids Of note patient is leukopenic (immunosuppressed) secondary to chemotherapy #Myocardial infarction of unknown duration and demand ischemia Patient was initially transferred from general medicine floor to ICU as telemetry floor for elevation in troponins with ST depression in V1 and V2 likely secondary to demand ischemia in setting of influenza. There are also deep Q waves in inferior leads of suggestive of a myocardial infarction of unknown duration -Cardiology Dr.Avi Montilla on board -Troponins trending down. -Echocardiogram to assess for regional wall motion abnormality: pending -Continue aspirin, beta rae and increase dose of Lipitor to 80 mg as per cardiology recommendations. -The plan was to hold Eliquis and start on intravenous heparin without a bolus later today but patient is guaiac-positive Will discuss with Cardiology and Attending before starting the drip -non-urgent cardiac catheterization being considered by the patient -We are going to begin patient on heparin drip as per attending Dr. Ontiveros recommendations and monitor CBCs every 8. H&H has been stable since December 2016 #Chronic conditions including CAD, Left Breast CA w/ spine/pelvis metastasis, HTN, HDL, DM, hypothyroidism, A-fib on eliqus, Osteoarthritis, GERD Continue home meds including Synthroids, B12/[place]-3/V-D/MgOx, Tums, Aspirin 81, Allopurinol 300mg qd, Eliquis 5mg BID, Amiodarone 100mg qd, Metoprolol 25mg BID, Lasix 40mg qd, Cymbalta 60mg qd, Fentanyl Patch, DVT prophylaxis Eliquis + ALPS/Heart Healthy Diet/Full Code *Patient will be nothing by mouth on Friday night for anticipated catheterization on Friday morning Problem List: 1. COPD exacerbation 2. Influenza Pain Ratin Pain Location: prn Pain Goal: Pain 4 or less Pain Plan: prn Tomorrow's Labs & Rationales: cbc bep Ana Ontiveros 11/28/17 1256: Attending MD Review Statement Attending Statement Attending MD Statement: examined this patient, discuss w/resident/PA/DIRECTOR GROUP SALES, agreed w/resident/PA/DIRECTOR GROUP SALES, discussed with family, reviewed EMR data (avail), discussed with nursing, discussed with case mgmt, reviewed images, amended to note Attending Assessment/Plan: 77 o/f with pmh of CAD S/P stent, Invasive ductal left breast carcinoma status post mastectomy on 03/08/2011, followed by chemotherapy, radiation and anastrazole for lymph node positive disease, with the spine/pelvis metastasis now on radiotherapy and 04/30, HTN, HDL, DM, hypothyroidism, history of atrial fibrillation on a eliqus, Osteoarthritis, GERD, history of compression fractures presented to the [facility] ER with CC of SOB, cough and congestion for past few days. Patient is found to have b/l wheezing on exam. Patient denies chest pain, leg swelling, no jvd appreciated. Patient still with b/l wheezing thoug better than yesterday. Labs noted with elevation of troponin. Vitals stable Chest xray with diffuse interstitial opacities. EKG sinus ryhtm with T wave inversions in V2. ECHO 2015 with preserved EF 60%, ECHO this admission EF 40% with anteroseptal hypokinesia. ASSESSMENT AND PLAN Patient admitted to [facility] for Acute respiratroy insufficiency from COPD and new onset congestive heart failure 2/2 viral bronchitis and positive influenza and type 2 PA on this admission, possible had ACS event in recent past. f/u Pulmonary consult Dr Jean-Baptiste for steroids, antibiotics, tamiflu, oxygen supplementation prn, bronchodilators,. Cardiology consulted, iv heparin, statin, b rae, lasix 40 cardiac cath plan as per cardiology. Contine home meds. Patient is agreeable for cardiac cath. gi/dvt prophyalxis full code.
[2017-11-28 08:00] VITALS: BP 152/60
--- NOTE | 2017-11-28 11:07 | Cons- Cardiology ---
General Information and HPI Consulting Request Date of Consult: 11/28/17 Requested By: Weston SILVERIO,Ana Reason for Consult: dyspnea Source of Information: patient, family, old records History of Present Illness: This is a pleasant 77-year-old female with a past medical history of coronary artery disease with bare metal stent to the RCA in 2007, paroxysmal atrial fibrillation on amiodarone and Eliquis, metastatic breast cancer, hypertension, hyperlipidemia, diabetes, COPD, diastolic dysfunction, and venous insufficiency who presents to [facility] with approximately 2 weeks of worsening shortness of breath at rest and with exertion without associated chest pain. She also reports a nonproductive cough. 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 Denies any palpitations, headache, slurring of speech , or bleeding. Reported running out of some of her inhalers a few weeks ago. Denied worsening lower extremity edema or paroxysmal nocturnal dyspnea. Allergies/Medications Allergies: Coded Allergies: NO KNOWN ALLERGIES (NKDA) (06/12/13) Home Med List: Allopurinol 300 MG TABLET 1 TAB PO DAILY GOUT (Reported) Amiodarone HCl 100 MG TABLET 1 TAB PO DAILY AFIB (Reported) Apixaban (Eliquis) 5 MG TABLET 1 TAB PO BID A FIB (Reported) Aspirin (Ecotrin*) 81 MG TABLET.DR 1 TAB PO QAM HEART/BLOOD (Reported) Calcium Carbonate (Calcium) 500 MG TABLET 1,500 MG PO DAILY SUPPLEMENT ( Reported) Cholecalciferol (Vitamin D3) (Vitamin D3) 1,000 UNIT CAPSULE 1 CAP PO QAM SUPPLEMENT (Reported) Cyanocobalamin (Vitamin B-12) 1,000 MCG TABLET 1 TAB PO DAILY SUPPLEMENT ( Reported) Duloxetine HCl 30 MG CAPSULE.DR 2 TAB PO DAILY DEPRESSION/NERVE PAIN ( Reported) SWITCHED FROM 3 PILLS (90MG) TO 2 PILLS (60MG) DAILY Fentanyl 75 MCG/HOUR PATCH.TD72 1 PAT TOP Q3D PAIN (Reported) Fulvestrant (Faslodex) 250 MG/5 ML SYRINGE BREAST CANCER (Reported) Furosemide 40 MG TABLET 1 TAB PO QAM DIURETIC (Reported) Levothyroxine Sodium (Synthroid) 125 MCG TABLET 1 TAB PO DAILY HYPOTHYROID ( Reported) Magnesium Oxide 400 MG TABLET 1 TAB PO BID SUPPLEMENT (Reported) Metoprolol Tartrate 25 MG TABLET 1 TAB PO BID HEART/BP (Reported) Morphine Sulfate 30 MG TABLET 1 TAB PO 4 TIMES/DAY PAIN (Reported) [place]-3/Dha/Epa/Fish Oil (Fish Oil 1,000 MG Softgel) 1 EACH CAPSULE 1 CAP PO DAILY SUPPLEMENT (Reported) Potassium Chloride 10 MEQ TABLET.ER 2 TAB PO QPM SUPPLEMENT (Reported) Pravastatin Sodium 40 MG TABLET 1 TAB PO QPM CHOLESTEROL (Reported) Current Medications: Current Medications Sig/Ck Start time Last Medication Dose Route Stop Time Status Admin Acetaminophen 650 MG Q6P PRN 11/27 1645 AC PO Acetaminophen 1,000 MG Q6P PRN 11/27 1645 AC 11/27 IV 2050 Albuterol Sulfate 3 ML EVERY 4 HRS/AWAKE 11/28 0800 AC 11/28 INH 0941 Albuterol Sulfate 3 ML ONCE ONE 11/27 1230 DC 11/27 INH 11/27 1231 1257 Allopurinol 300 MG DAILY 11/28 1000 AC 11/28 PO 1057 Amiodarone HCl 100 MG DAILY 11/27 1528 AC 11/28 PO 1004 Apixaban 5 MG BID 11/27 2200 AC 11/28 PO 1005 Aspirin 325 MG ONCE ONE 11/27 2345 DC 11/27 PO 11/27 2346 2348 Aspirin Buffered 81 MG QAM 11/28 1000 AC 11/28 PO 1005 Atorvastatin Calcium 40 MG 1700 11/27 1700 AC 11/27 PO 1800 Calcium Carbonate 1,500 MG DAILY 11/28 1000 AC 11/28 PO 1100 Cholecalciferol 1,000 IU DAILY 11/28 1000 AC 11/28 PO 1057 Cyanocobalamin 1,000 MCG DAILY 11/28 1000 AC 11/28 PO 1057 Duloxetine HCl 60 MG DAILY 11/27 1531 AC 11/28 PO 1005 Fentanyl Citrate 75 MCG Q3D 11/27 1530 AC 11/27 TOP 1800 Fish Oil 1,050 MG DAILY 11/28 1000 AC 11/28 PO 1100 Furosemide 0 .STK-MED ONE 11/27 1752 DC PO Furosemide 40 MG QAM 11/27 1533 AC 11/28 PO 1005 Ipratropium [place] 2.5 ML ONCE ONE 11/27 1230 DC 11/27 INH 11/27 1231 1257 Levothyroxine Sodium 0.125 MG DAILY 11/28 1000 AC 11/28 PO 1057 Magnesium Oxide 400 MG BID 11/27 1530 AC 11/28 PO 1100 Methylprednisolone 40 MG Q6 11/27 1800 AC 11/28 IV 0519 Methylprednisolone 0 .STK-MED ONE 11/27 1752 DC .ROUTE Methylprednisolone 0 .STK-MED ONE 11/27 1321 DC .ROUTE Methylprednisolone 125 MG ONCE ONE 11/27 1230 DC 11/27 IV 11/27 1231 1327 Metoprolol Tartrate 25 MG BID 11/27 1534 AC 11/28 PO 1057 Oseltamivir Phosphate 30 MG BID 11/28 1018 AC 11/28 PO 12/02 1017 1057 Oseltamivir Phosphate 75 MG BID 11/28 1016 DC PO 12/02 1015 Oseltamivir Phosphate 30 MG DAILY 11/28 1000 DC PO 12/02 0959 Oseltamivir Phosphate 75 MG ONCE ONE 11/27 1400 CAN PO 11/27 1401 Oseltamivir Phosphate 30 MG ONCE ONE 11/27 1400 DC 11/27 PO 11/27 1401 1553 Polyethylene Glycol 17 GM AT BEDTIME PRN 11/27 1645 AC PO Potassium Chloride 20 MEQ ONCE ONE 11/28 1015 DC 11/28 PO 11/28 1016 1058 Potassium Chloride 40 MEQ ONCE ONE 11/28 0815 CAN PO 11/28 0816 Senna/Docusate Sodium 1 TAB AT BEDTIME PRN 11/27 1645 AC PO Review of Systems Review of Systems: Review of systems as per HPI. The remainder of a 10 point review of systems was reviewed and was otherwise negative. Past History Travel History Traveled to [place] past 21 day No Medical History Blood Transfusion Hx: No Neurological: ALZHEIMERS? 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 Home Services at Home: None Primary Language: Uzbek Smoking Status: Former Smoker ETOH Use: denies use Illicit Drug Use: denies illicit drug use Exam & Diagnostic Data Vital Signs and I&O Vital Signs Date Time Temp Pulse Resp B/P B/P Pulse O2 O2 Flow FiO2 Mean Ox Delivery Rate 11/28 1057 64 11/28 1004 63 126/68 11/28 0947 96 Nasal 2.0L Cannula 11/28 0113 56 20 120/60 100 Nasal 2.0L Cannula 11/28 0000 Nasal 2.0L Cannula 11/27 2336 98.4 64 20 144/70 94 Room Air 11/27 2200 64 130/62 11/273 Room Air 11/27 2059 64 130/62 11/27 203 94 Room Air 11/27 1720 98.6 64 20 161/71 95 Room Air 11/27 1257 92 11/27 1220 97.6 69 20 174/69 95 Room Air Intake & Output 11/28 1600 11/28 0800 11/28 0000 11/27 1600 11/27 0800 11/27 0000 Intake Total 100 250 0 Output Total 600 Balance 100 -350 0 Intake, IV 100 Intake, Oral 100 150 0 Number 0 Bowel Movements Output, Urine 600 Patient 124 lb 124 lb Weight Weight Reported by Patient Measurement Method Physical Exam: General: no apparent distress. Alert. Eyes: No obvious scleral icterus. HEENT: No jugular venous distention or abnormal jugular venous pulsations. Cardiovascular: Normal intensity S1/S2. PMI not grossly displaced. Respiratory: Lungs clear to auscultation bilaterally. Abdomen: Soft, nontender with no guarding or rebound tenderness. Musculoskeletal: No clubbing or cyanosis noted Skin: No obvious rashes or ulcerations. Neurologic: No gross focal deficits noted. Lymph: No gross lymphadenopathy. Labs/Anthony Results: Laboratory Tests 11/28 11/28 11/28 1010 0430 0400 Chemistry Sodium (137 - 145 mmol/L) 139 Potassium (3.5 - 5.1 mmol/L) 3.9 Chloride (98 - 107 mmol/L) 96 L Carbon Dioxide (22 - 30 mmol/L) 31 H Anion Gap (5 - 16) 12 BUN (7 - 17 mg/dL) 17 Creatinine (0.5 - 1.0 mg/dL) 0.9 Estimated GFR (>60 ml/min) > 60 BUN/Creatinine Ratio (7 - 25 %) 18.9 Magnesium (1.6 - 2.3 mg/dL) 2.1 Troponin I (< 0.11 ng/ml) Pending 0.44 *H Cancelled Hematology CBC w Diff NO MAN DIFF REQ WBC (4.8 - 10.8 /CUMM) 3.6 L RBC (4.20 - 5.40 /CUMM) 3.71 L Hgb (12.0 - 16.0 G/DL) 9.6 L Hct (37 - 47 %) 29.8 L MCV (81.0 - 99.0 FL) 80.4 L MCH (27.0 - 31.0 PG) 25.8 L MCHC (33.0 - 37.0 G/DL) 32.2 L RDW (11.5 - 14.5 %) 18.3 H Plt Count (130 - 400 /CUMM) 216 MPV (7.4 - 10.4 FL) 8.7 Gran % (42.2 - 75.2 %) 73.9 Lymphocytes % (20.5 - 51.1 %) 23.4 Monocytes % (1.7 - 9.3 %) 2.7 Eosinophils % (0 - 5 %) 0 Basophils % (0.0 - 2.0 %) 0 Absolute Granulocytes (1.4 - 6.5 /CUMM) 2.7 Absolute Lymphocytes (1.2 - 3.4 /CUMM) 0.9 L Absolute Monocytes (0.10 - 0.60 /CUMM) 0.1 Absolute Eosinophils (0.0 - 0.7 /CUMM) 0 Absolute Basophils (0.0 - 0.2 /CUMM) 0 11/27 11/27 11/27 2245 1305 1259 Chemistry Sodium (137 - 145 mmol/L) 143 Potassium (3.5 - 5.1 mmol/L) 4.8 Chloride (98 - 107 mmol/L) 99 Carbon Dioxide (22 - 30 mmol/L) 33 H Anion Gap (5 - 16) 10 BUN (7 - 17 mg/dL) 13 Creatinine (0.5 - 1.0 mg/dL) 1.0 Estimated GFR (>60 ml/min) 54 L BUN/Creatinine Ratio (7 - 25 %) 13.0 Glucose (65 - 99 mg/dL) 99 Calcium (8.4 - 10.2 mg/dL) 9.5 Total Bilirubin (0.2 - 1.3 mg/dL) 0.3 AST (14 - 36 U/L) 55 H ALT (9 - 52 U/L) 39 Alkaline Phosphatase (<127 U/L) 178 H Troponin I (< 0.11 ng/ml) 0.34 *H 0.05 Qdy-U-Qlimkwiyuse Pept (<125 pg/mL) 6640 H Total Protein (6.3 - 8.2 g/dL) 6.5 Albumin (3.5 - 5.0 g/dL) 3.9 Globulin (1.9 - 4.2 gm/dL) 2.6 Albumin/Globulin Ratio (1.1 - 2.2 %) 1.5 Coagulation PT (9.4 - 12.5 SEC) 13.2 H INR (0.90 - 1.19) 1.26 H Hematology CBC w Diff NO MAN DIFF REQ WBC (4.8 - 10.8 /CUMM) 3.8 L RBC (4.20 - 5.40 /CUMM) 3.77 L Hgb (12.0 - 16.0 G/DL) 9.7 L Hct (37 - 47 %) 30.5 L MCV (81.0 - 99.0 FL) 80.8 L MCH (27.0 - 31.0 PG) 25.8 L MCHC (33.0 - 37.0 G/DL) 32.0 L RDW (11.5 - 14.5 %) 17.4 H Plt Count (130 - 400 /CUMM) 213 MPV (7.4 - 10.4 FL) 8.7 Gran % (42.2 - 75.2 %) 48.8 Lymphocytes % (20.5 - 51.1 %) 39.5 Monocytes % (1.7 - 9.3 %) 9.1 Eosinophils % (0 - 5 %) 2.5 Basophils % (0.0 - 2.0 %) 0.1 Absolute Granulocytes (1.4 - 6.5 /CUMM) 1.8 Absolute Lymphocytes (1.2 - 3.4 /CUMM) 1.5 Absolute Monocytes (0.10 - 0.60 /CUMM) 0.3 Absolute Eosinophils (0.0 - 0.7 /CUMM) 0.1 Absolute Basophils (0.0 - 0.2 /CUMM) 0 Serology Virus Culture Pending Diagnostic Data EKG Results Tracing was personally reviewed and shows sinus rhythm at 57 bpm with evidence of anterior wall myocardial infarction of unknown duration CXR Results Chronic diffuse interstitial opacity, most likely representing chronic bronchitis or reactive airways disease. No acute pulmonary disease seen. Other Results Telemetry tracings were personally reviewed and shows sinus rhythm and sinus bradycardia with a 6 beat ventricular run Assessment/Plan Assessment/Plan 1. Myocardial infarction, likely recent Type 1 2. Influenza/COPD 3. Metastatic breast cancer with the spinal and pelvic metastases 4. Paroxysmal atrial fibrillation on Eliquis and amiodarone, currently in sinus rhythm 5. History of coronary artery disease with bare metal stent to the RCA in 2007 5. Chronic pain syndrome and history of compression fractures 6. Hypertension/hyperlipidemia/diabetes/hypothyroidism 7. COPD 8. History of lower extremity edema/venous insufficiency 9. Diastolic dysfunction with pulmonary hypertension by prior echocardiogram While the patient was found to have evidence of influenza her EKG is suggestive of a myocardial infarction of unknown duration but I suspect it may have happened approximately 2 weeks ago when she initially started having shortness of breath; I think the current elevation in troponin is more likely due to supply/demand mismatch but given my suspicion that she did have a recent acute myocardial infarction we did discuss the possibility of non-urgent cardiac catheterization which she is likely going to proceed with. I discussed the plan at length with the housestaff and we are going to hold her Eliquis and start on intravenous heparin without a bolus later today. Continue on aspirin and beta rae, increase statin to Lipitor 80 mg by mouth daily. Follow-up echocardiogram to assess for regional wall motion abnormality but the EKG is suggestive of anterior [place]. Maintain on telemetry Ender Montilla MD [facility] Consult Acknowledgment - Thank you for your consult request.
--- NOTE | 2017-11-28 13:09 | Cons- Pulmonary ---
General Information and HPI Consulting Request Date of Consult: 11/27/17 Requested By: med team History of Present Illness: This is a pleasant 77-year-old female with a past medical history of coronary artery disease with bare metal stent to the RCA in 2007, paroxysmal atrial fibrillation on amiodarone and Eliquis, metastatic breast cancer, hypertension, hyperlipidemia, diabetes, COPD, diastolic dysfunction, and venous insufficiency who presents to [facility] with approximately 2 weeks of worsening shortness of breath at rest and with exertion without associated chest pain. She also reports a nonproductive cough. 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 Denies any palpitations, headache, slurring of speech, or bleeding. Reported running out of some of her inhalers a few weeks ago. Denied worsening lower extremity edema or paroxysmal nocturnal dyspnea. Since she came in she is postive for flu and is on rick rx Has chest pain on and off mostly rib pain Has multiple mets from advanced breast ca Allergies/Medications Allergies: Coded Allergies: NO KNOWN ALLERGIES (NKDA) (06/12/13) Home Med List: Allopurinol 300 MG TABLET 1 TAB PO DAILY GOUT (Reported) Amiodarone HCl 100 MG TABLET 1 TAB PO DAILY AFIB (Reported) Apixaban (Eliquis) 5 MG TABLET 1 TAB PO BID A FIB (Reported) Aspirin (Ecotrin*) 81 MG TABLET.DR 1 TAB PO QAM HEART/BLOOD (Reported) Calcium Carbonate (Calcium) 500 MG TABLET 1,500 MG PO DAILY SUPPLEMENT ( Reported) Cholecalciferol (Vitamin D3) (Vitamin D3) 1,000 UNIT CAPSULE 1 CAP PO QAM SUPPLEMENT (Reported) Cyanocobalamin (Vitamin B-12) 1,000 MCG TABLET 1 TAB PO DAILY SUPPLEMENT ( Reported) Duloxetine HCl 30 MG CAPSULE.DR 2 TAB PO DAILY DEPRESSION/NERVE PAIN ( Reported) SWITCHED FROM 3 PILLS (90MG) TO 2 PILLS (60MG) DAILY Fentanyl 75 MCG/HOUR PATCH.TD72 1 PAT TOP Q3D PAIN (Reported) Fulvestrant (Faslodex) 250 MG/5 ML SYRINGE BREAST CANCER (Reported) Furosemide 40 MG TABLET 1 TAB PO QAM DIURETIC (Reported) Levothyroxine Sodium (Synthroid) 125 MCG TABLET 1 TAB PO DAILY HYPOTHYROID ( Reported) Magnesium Oxide 400 MG TABLET 1 TAB PO BID SUPPLEMENT (Reported) Metoprolol Tartrate 25 MG TABLET 1 TAB PO BID HEART/BP (Reported) Morphine Sulfate 30 MG TABLET 1 TAB PO 4 TIMES/DAY PAIN (Reported) [place]-3/Dha/Epa/Fish Oil (Fish Oil 1,000 MG Softgel) 1 EACH CAPSULE 1 CAP PO DAILY SUPPLEMENT (Reported) Potassium Chloride 10 MEQ TABLET.ER 2 TAB PO QPM SUPPLEMENT (Reported) Pravastatin Sodium 40 MG TABLET 1 TAB PO QPM CHOLESTEROL (Reported) Review of Systems Review of Systems Constitutional: Reports: see HPI. Past History Travel History Traveled to [place] past 21 day No Medical History Blood Transfusion Hx: No Neurological: ALZHEIMERS? 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 Home Services at Home: None Primary Language: Frisian Smoking Status: Former Smoker ETOH Use: denies use Illicit Drug Use: denies illicit drug use Exam & Diagnostic Data Last 24 Hrs of Vital Signs/I&O Vital Signs Date Time Temp Pulse Resp B/P B/P Pulse O2 O2 Flow FiO2 Mean Ox Delivery Rate 11/28 1057 64 11/28 1004 63 126/68 11/28 0947 96 Nasal 2.0L Cannula 11/28 0113 56 20 120/60 100 Nasal 2.0L Cannula 11/28 0000 Nasal 2.0L Cannula 11/27 2336 98.4 64 20 144/70 94 Room Air 11/27 2200 64 130/62 11/27 2123 Room Air 11/27 2059 64 130/62 11/27 2033 94 Room Air 11/27 1720 98.6 64 20 161/71 95 Room Air Intake & Output 11/28 1600 11/28 0800 11/28 0000 Intake Total 100 250 Output Total 600 Balance 100 -350 Intake, IV 100 Intake, Oral 100 150 Number 0 Bowel Movements Output, Urine 600 Patient 124 lb Weight Last 48 Hrs of Labs/Anthony: Laboratory Tests 11/28/17 1010: Troponin I 0.37 *H 11/28/17 0430: Anion Gap 12, Estimated GFR > 60, BUN/Creatinine Ratio 18.9, Magnesium 2.1, Troponin I 0.44 *H, CBC w Diff NO MAN DIFF REQ, RBC 3.71 L, MCV 80.4 L, MCH 25.8 L, MCHC 32.2 L, RDW 18.3 H, MPV 8.7, Gran % 73.9, Lymphocytes % 23.4, Monocytes % 2.7, Eosinophils % 0, Basophils % 0, Absolute Granulocytes 2.7, Absolute Lymphocytes 0.9 L, Absolute Monocytes 0.1, Absolute Eosinophils 0, Absolute Basophils 0 11/28/17 0400: Troponin I Cancelled 11/27/17 2245: Troponin I 0.34 *H 11/27/17 1305: Virus Culture Pending 11/27/17 1259: Anion Gap 10, Estimated GFR 54 L, BUN/Creatinine Ratio 13.0, Glucose 99, Calcium 9.5, Total Bilirubin 0.3, AST 55 H, ALT 39, Alkaline Phosphatase 178 H , Troponin I 0.05, Awn-Q-Hmuqeiqtwsh Pept 6640 H, Total Protein 6.5, Albumin 3.9, Globulin 2.6, Albumin/Globulin Ratio 1.5, PT 13.2 H, INR 1.26 H, CBC w Diff NO MAN DIFF REQ, RBC 3.77 L, MCV 80.8 L, MCH 25.8 L, MCHC 32.0 L, RDW 17.4 H, MPV 8.7, Gran % 48.8, Lymphocytes % 39.5, Monocytes % 9.1, Eosinophils % 2.5, Basophils % 0.1, Absolute Granulocytes 1.8, Absolute Lymphocytes 1.5, Absolute Monocytes 0.3, Absolute Eosinophils 0.1, Absolute Basophils 0 Microbiology 11/27 130 NASOPHARYN: Influenza Virus A & B Rapid Smear - COMP INFLUENZA TYPE A Assessment/Plan Impression/Plan: Physical Exam General Appearance Alert, Oriented X3, Cooperative, No Acute Distress Skin No Significant Lesion Skin Temp/Moisture Exam: Warm/Dry Sepsis Skin Exam (color): Normal for Ethnicity HEENT Atraumatic, PERRLA Neck Supple, No JVD Cardiovascular Regular Rate, Normal S1, Normal S2 Lungs Normal Air Movement, Bilateral wheezing Abdomen Normal Bowel Sounds, Soft, No Tenderness Neurological Normal Speech, Strength at 5/5 X4 Ext Extremities No Cyanosis, No Edema, Normal Pulses This is a lady with documented advanced metastatic breast cancer with multiple metastases to most of her spine is on active rx from onc, with previous xrt, hypertension, type 2 diabetes, history of atrial fibrillation on eloquis and on amiodarone came in with * REsolved resp insuff due to influenza pna, with chronic lung disease with periodic bronchospasm. Pt has remote history of smoking quit more than 35 yrs ago and has mild chronic lung disease. Pt has chronic obstrucitve and restrictive lung disease * PRevious IHD with stent pafib on eloquis now with NSTMI with recent cardiac insult * Very advanced breast cancer with multiple metastases to the spine * Pafib * Chronic pain syndrome due to metastatic breast cancer who is on fentanyl and Cymbalta * Hypertension, diabetes, previous history of gout, mild to moderate COPD, multiple compression fractures due to metastatic metastases to the spine, worsening mental status in the recent past suggestive of mild dementia. * CHronic lower ext edema with venous insuff with diastolic heart with PUlm htn due to this and with chronic obstructive and restrictive lung disease REC COnt tamiflu Dc iv steroids and no further systemic steroids NEBs atc with ipratropium and use albuterol only if wheezing Start flovent 110 2 puff bid Cont other meds For cath when stable Rpt cxr Wean oxygen cont other meds ECHO pending N Consult Acknowledgment - Thank you for your consult request.
--- NOTE | 2017-11-28 13:37 | ECHOCARDIOGRAM REPORT ---
LINDA APODACA Age: 77 : 1940 Gender: F Exam Date: 11/28/2017 08:15 Exam Location: [facility] Ht (in): 60 Wt (lb): 124 BSA: 1.55 BP: 120 / 60 Ordering Physician: Otilia Chavira MD Referring Physician: Otilia Chavira MD Technologist: Lavon Reeves [facility] Room Number: [id number] Indications: MYOCARDIAL ISCHEMIA/CT Rhythm: Technical Quality: Fair FINDINGS Left Ventricle Left ventricular cavity size normal. Normal left ventricular wall thickness. There is severe anteroseptal hypokinesis. Left ventricular ejection fraction is estimated at 40 %. Right Ventricle Normal right ventricular size and function. Right Atrium Normal right atrial size. Left Atrium Mild left atrial dilatation. Mitral Valve Mild mitral annular calcification. Qzdx-ot-cseuiemb mitral regurgitation. Aortic Valve No aortic stenosis. Trace aortic regurgitation. Trileaflet aortic valve. Tricuspid Valve Structurally normal tricuspid valve. Mild tricuspid regurgitation. Right ventricular systolic pressure estimated at 52 mmHg. Pulmonic Valve Structurally normal pulmonic valve. Trace pulmonic regurgitation. Pericardium No pericardial effusion. Great Vessels Normal size aortic root. CONCLUSIONS Left ventricular cavity size normal. Normal left ventricular wall thickness. There is severe anteroseptal hypokinesis. Left ventricular ejection fraction is estimated at 40 %. Normal right ventricular size and function. Mild left atrial dilatation. Zsrp-jd-bxikvhrx mitral regurgitation. Right ventricular systolic pressure estimated at 52 mmHg. Trey Montilla M.D. (Electronically Signed) Final Date: 28 November 2017 13:37 MEASUREMENTS (Male / Female) Normal Values 2D ECHO LV Diastolic Diameter PLAX 4.8 cm 4.2 - 5.9 / 3.9 - 5.3 cm LV Systolic Diameter PLAX 4.0 cm 2.1 - 4.0 cm LV Fractional Shortening PLAX 16.7 % 25 - 46 % LV Ejection Fraction 2D Teich 34.9 % IVS Diastolic Thickness 0.8 cm LVPW Diastolic Thickness 1.0 cm LV Relative Wall Thickness 0.4 LVOT Diameter 1.7 cm Aortic Root Diameter 2.3 cm LA Systolic Diameter LX 4.5 cm 3.0 - 4.0 / 2.7 - 3.8 cm LA Volume 94.0 cm 18 - 58 / 22 - 52 cm Ascending Aorta Diameter 3.0 cm DOPPLER AV Peak Velocity 139.0 cm/s AV Peak Gradient 7.7 mmHg AV Mean Velocity 82.3 cm/s AV Mean Gradient 3.0 mmHg AV Velocity Time Integral 32.0 cm LVOT Peak Velocity 78.2 cm/s LVOT Peak Gradient 2.4 mmHg LVOT Mean Velocity 37.8 cm/s LVOT Mean Gradient 1.0 mmHg LVOT Velocity Time Integral 16.0 cm LVOT Stroke Volume 36.3 cm AV Area Cont Eq vti 1.1 cm AV Area Cont Eq pk 1.3 cm MV Peak Velocity 119.0 cm/s MV Peak Gradient 5.7 mmHg MV Mean Velocity 59.3 cm/s MV Mean Gradient 2.0 mmHg Mitral E Point Velocity 123.0 cm/s Mitral A Point Velocity 49.9 cm/s Mitral E to A Ratio 2.5 MV PHT Velocity 126.0 cm/s MV Deceleration [place] 479.0 cm/s MV Pressure Half Time 78.9 ms MV Area PHT 2.8 cm MV Deceleration Time 165.0 ms MR Peak Velocity 574.0 cm/s MR Peak Gradient 131.8 mmHg TR Peak Velocity 342.0 cm/s TR Peak Gradient 46.8 mmHg Right Atrial Pressure 5.0 mmHg Pulmonary Artery Systolic Pressu 51.8 mmHg Right Ventricular Systolic Press 51.8 mmHg PV Peak Velocity 95.1 cm/s PV Peak Gradient 3.6 mmHg PV Mean Velocity 63.8 cm/s PV Mean Gradient 2.0 mmHg PV Velocity Time Integral 21.1 cm LV E' Lateral Velocity 9.6 cm/s Mitral E to LV E' Lateral Ratio 12.9 LV E' Septal Velocity 4.1 cm/s Mitral E to LV E' Septal Ratio 30.1
[2017-11-28 16:00] VITALS: BP 118/60
[2017-11-28 16:00] LABS: ABSOLUTE BASOPHIL COUNT 0 /CUMM (0.0-0.2); ABSOLUTE EOSINOPHIL COUNT 0 /CUMM (0.0-0.7); ABSOLUTE GRANULOCYTE CT 6.5 /CUMM (1.4-6.5); ABSOLUTE LYMPH COUNT 0.6 /CUMM (1.2-3.4); ABSOLUTE MONOCYTE COUNT 0.6 /CUMM (0.10-0.60); BASOPHIL % 0.4 % (0.0-2.0); EOSINOPHIL % 0 % (0-5); GRANULOCYTE % 83.7 % (42.2-75.2); HEMATOCRIT 31.1 % (37-47); MEAN CORPUSCULAR HGB 25.7 PG (27.0-31.0); MEAN CORPUSCULAR HGB CONC 31.9 G/DL (33.0-37.0); MEAN CORPUSCULAR VOLUME 80.8 FL (81.0-99.0); MEAN PLATELET VOLUME 9.9 FL (7.4-10.4); PLATELET COUNT 250 /CUMM (130-400); RBC DISTRIBUTION WIDTH 17.5 % (11.5-14.5); RED BLOOD CELL CT 3.86 /CUMM (4.20-5.40)
[2017-11-28 16:03] LABS: WHITE BLOOD CELL COUNT 7.8 /CUMM (4.8-10.8)
--- NOTE | 2017-11-28 16:12 | RADIOLOGY REPORT ---
EXAMINATION: XR PORTABLE CHEST CLINICAL INFORMATION: Shortness of breath. COPD exacerbation. COMPARISON: Chest x-ray 11/27/2017 TECHNIQUE: Portable frontal view of the chest was obtained. FINDINGS: Stable cardiac silhouette. Lungs are adequately aerated. No lobar consolidation. No gross pleural effusion. Interstitial markings remain mildly prominent diffusely. Surgical changes of the left axilla and left breast again identified. Old right rib fractures. Degenerative changes particularly of the right shoulder. IMPRESSION: Stable examination. No lobar consolidation.
--- NOTE | 2017-11-28 16:47 | Discharge Summary ---
Visit Information Visit Dates Admission Date: 11/27/17 Discharge Date: 12/01/2016 Hospital Course Course Attending Physician: Maxine Vincent MD Primary Care Physician: Karen Ron MD Consulting Request: 1 Consulting Specialty: Pulmonary Disease Consulting Physician: Dr. Jean-Baptiste Reason for Consult: Worsening shortness of breath/COPD exacerbation Consulting Request: 2 Consulting Specialty: Cardiology Consulting Physician: Dr. Montilla Reason for Consult: Dyspnea/Myocardial infarct Hospital Course: Ms. 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 Patient ran out of all of her inhalers and nebulizer medications a few weeks ago. She called her rap artist Dr. Jean-Baptiste who advised that she come to the ER. Of note, patient had a "jaw infection" and was given augmentin x 6 weeks prior this admission. Upon cardiac evaluation, patient was found to have elevated troponins that peaked at 0.44 ng/ml. She also had new significant Q waves in V1/V2/V3 which suggested a recent Type 1 myocardial infarct. Echocardiogram done supported this conclusion with evidence of new anterior wall hypokinesis. Patient was offered an elective non-emergent cardiac catheterization. Other issues addressed during this hospitalization include dyspnea and SOB 2/2 influeza and likely viral bronchitis superimposed on her chronic respiratory diseases including COPD. Of note, patient has chronic pulmonary inflitrates noted on multiple chest x-rays and it was unclear if this was related to amiodarone for her atrial fibrillation or was a seperate airway process. Patient was assessed by her woodwind reeds cutter and rap artist in the hospital. Eliquis was held starting on 11/28/2017 and patient was started on a heparin drip without bolus. She was noted to be guiac positive. Decision was made to hold off on DAPT given possibility of triple vessel disease. On admission she was started on Tamiflu, steroids and nebs. Pt was switched from medium intensity to high intensity statin with atorvastatin 80 mg daily and aspirin 81 mg was continued. Systemic steroids D/C on 11/28/2017. All her other home meds were continued. Her heparin drip was discontinued prior to transfer to [facility] for cardiac catheterization. Allergies: Coded Allergies: NO KNOWN ALLERGIES (NKDA) (06/12/13) Pertinent Lab Results: + Flu swab ECHO FINDINGS Left Ventricle Left ventricular cavity size normal. Normal left ventricular wall thickness. There is severe anteroseptal hypokinesis. Left ventricular ejection fraction is estimated at 40 %. Right Ventricle Normal right ventricular size and function. Right Atrium Normal right atrial size. Left Atrium Mild left atrial dilatation. Mitral Valve Mild mitral annular calcification. Uuyp-bh-gnlfwlmf mitral regurgitation. Aortic Valve No aortic stenosis. Trace aortic regurgitation. Trileaflet aortic valve. Tricuspid Valve Structurally normal tricuspid valve. Mild tricuspid regurgitation. Right ventricular systolic pressure estimated at 52 mmHg. Pulmonic Valve Structurally normal pulmonic valve. Trace pulmonic regurgitation. Pericardium No pericardial effusion. Great Vessels Normal size aortic root. CONCLUSIONS Left ventricular cavity size normal. Normal left ventricular wall thickness. There is severe anteroseptal hypokinesis. Left ventricular ejection fraction is estimated at 40 %. Normal right ventricular size and function. Mild left atrial dilatation. Duoh-yb-gvmyvyzy mitral regurgitation. Right ventricular systolic pressure estimated at 52 mmHg. Trey Montilla M.D. (Electronically Signed) Final Date: 28 November 2017 13:37 MEASUREMENTS (Male / Female) Normal Values 2D ECHO LV Diastolic Diameter PLAX 4.8 cm 4.2 - 5.9 / 3.9 - 5.3 cm LV Systolic Diameter PLAX 4.0 cm 2.1 - 4.0 cm LV Fractional Shortening PLAX 16.7 % 25 - 46 % LV Ejection Fraction 2D Teich 34.9 % IVS Diastolic Thickness 0.8 cm LVPW Diastolic Thickness 1.0 cm LV Relative Wall Thickness 0.4 LVOT Diameter 1.7 cm Aortic Root Diameter 2.3 cm LA Systolic Diameter LX 4.5 cm 3.0 - 4.0 / 2.7 - 3.8 cm LA Volume 94.0 cm 18 - 58 / 22 - 52 cm Ascending Aorta Diameter 3.0 cm DOPPLER AV Peak Velocity 139.0 cm/s AV Peak Gradient 7.7 mmHg AV Mean Velocity 82.3 cm/s AV Mean Gradient 3.0 mmHg AV Velocity Time Integral 32.0 cm LVOT Peak Velocity 78.2 cm/s LVOT Peak Gradient 2.4 mmHg LVOT Mean Velocity 37.8 cm/s LVOT Mean Gradient 1.0 mmHg LVOT Velocity Time Integral 16.0 cm LVOT Stroke Volume 36.3 cm AV Area Cont Eq vti 1.1 cm AV Area Cont Eq pk 1.3 cm MV Peak Velocity 119.0 cm/s MV Peak Gradient 5.7 mmHg MV Mean Velocity 59.3 cm/s MV Mean Gradient 2.0 mmHg Mitral E Point Velocity 123.0 cm/s Mitral A Point Velocity 49.9 cm/s Mitral E to A Ratio 2.5 MV PHT Velocity 126.0 cm/s MV Deceleration [place] 479.0 cm/s MV Pressure Half Time 78.9 ms MV Area PHT 2.8 cm MV Deceleration Time 165.0 ms MR Peak Velocity 574.0 cm/s MR Peak Gradient 131.8 mmHg TR Peak Velocity 342.0 cm/s TR Peak Gradient 46.8 mmHg Right Atrial Pressure 5.0 mmHg Pulmonary Artery Systolic Pressu 51.8 mmHg Right Ventricular Systolic Press 51.8 mmHg PV Peak Velocity 95.1 cm/s PV Peak Gradient 3.6 mmHg PV Mean Velocity 63.8 cm/s PV Mean Gradient 2.0 mmHg PV Velocity Time Integral 21.1 cm LV E' Lateral Velocity 9.6 cm/s Mitral E to LV E' Lateral Ratio 12.9 LV E' Septal Velocity 4.1 cm/s Mitral E to LV E' Septal Ratio 30.1 cxr 11/28/2017 COMPARISON: Chest x-ray 11/27/2017 TECHNIQUE: Portable frontal view of the chest was obtained. FINDINGS: Stable cardiac silhouette. Lungs are adequately aerated. No lobar consolidation. No gross pleural effusion. Interstitial markings remain mildly prominent diffusely. Surgical changes of the left axilla and left breast again identified. Old right rib fractures. Degenerative changes particularly of the right shoulder. IMPRESSION: Stable examination. No lobar consolidation. Disposition Summary Disposition Principal Diagnosis: 1. Myocardial infarction Additional Diagnosis: 2. Influenza 3. COPD exacerbation 4. Paroxysmal atrial fibrillation 5. Hypertension 6. Diastolic heart failure Discharge Disposition: other general hospital Discharge Instructions General Discharge Information Code Status: Full Code Patient's Diet: as tolerated Patient's Activity: as tolerated Follow-Up Instructions/Appts: 1. You are going to be transferred to [facility] for cardiac catheterization. 2. Follow up with your primary care provider and woodwind reeds cutter within 1 week of discharge. 3. Please follow up with rap artist, Dr. Jean-Baptiste within 10 days of discharge Medications at Discharge Discharge Medications: Stop taking the following medications: Pravastatin Sodium (Pravastatin Sodium) 40 MG TABLET ORAL Every night Qty = 180 Apixaban (Eliquis) 5 MG TABLET ORAL TWICE DAILY Continue taking these medications: Metoprolol Tartrate (Metoprolol Tartrate) 25 MG TABLET 1 Tablet ORAL TWICE DAILY Qty = 180 Comments: Last Taken: 05/10/16 Time: 10:45 AM Aspirin (Ecotrin*) 81 MG TABLET.DR 1 Tablet ORAL Every Morning Comments: Last Taken: 05/10/16 Time: 10:45 AM Furosemide (Furosemide) 40 MG TABLET 1 Tablet ORAL Every Morning Qty = 90 Comments: Last Taken: 05/10/16 Time: 10:45 AM Duloxetine HCl (Duloxetine HCl) 30 MG CAPSULE.DR 2 Tablet ORAL DAILY Qty = 90 Instructions: SWITCHED FROM 3 PILLS (90MG) TO 2 PILLS (60MG) DAILY Comments: Last Taken: 05/10/16 Time: 10:45 AM Allopurinol (Allopurinol) 300 MG TABLET 1 Tablet ORAL DAILY Qty = 30 Comments: Last Taken: 05/10/16 Time: 10:45 AM Calcium Carbonate (Calcium) 500 MG TABLET 1,500 Milligram ORAL DAILY Comments: Last Taken: 05/10/16 Time: 10:45 AM Cyanocobalamin (Vitamin B-12) 1,000 MCG TABLET 1 Tablet ORAL DAILY Comments: Last Taken: 05/01/16 Time: 10:45 AM Cholecalciferol (Vitamin D3) (Vitamin D3) 1,000 UNIT CAPSULE 1 Capsule ORAL Every Morning Comments: Last Taken: 05/10/16 Time: 10:45 AM [place]-3/Dha/Epa/Fish Oil (Fish Oil 1,000 MG Softgel) 1 EACH CAPSULE 1 Capsule ORAL DAILY Comments: Last Taken: 05/10/16 Time: 10:45 AM Fentanyl (Fentanyl) 75 MCG/HOUR PATCH.TD72 1 Patch On the skin Every 3 days Comments: Last Taken: 05/10/16 Time: 0800 Potassium Chloride (Potassium Chloride) 10 MEQ TABLET.ER 2 Tablet ORAL Every night Qty = 30 Comments: DID NOT RECEIVE WHILE IN HOSPITAL Amiodarone HCl (Amiodarone HCl) 100 MG TABLET 1 Tablet ORAL DAILY Comments: Last Taken: 05/10/16 Time: 10:45 AM Magnesium Oxide (Magnesium Oxide) 400 MG TABLET 1 Tablet ORAL TWICE DAILY Comments: Last Taken: 05/10/16 Time: 10:45 AM Levothyroxine Sodium (Synthroid) 125 MCG TABLET 1 Tablet ORAL DAILY Fulvestrant (Faslodex) 250 MG/5 ML SYRINGE MONTHLY Morphine Sulfate (Morphine Sulfate) 30 MG TABLET 1 Tablet ORAL 4 TIMES A DAY Qty = 120 Start taking the following new medications: Tiotropium [place] (Spiriva) 18 MCG CAP.W.DEV 1 Puff Inhale through mouth DAILY Qty = 1 No Refills Atorvastatin Calcium (Atorvastatin Calcium) 80 MG TABLET 1 Tablet ORAL 5 PM Qty = 30 No Refills Oseltamivir Phosphate (Tamiflu) 30 MG CAPSULE 2 Capsule ORAL TWICE DAILY Qty = 4 No Refills Copies To: Jerilyn SILVERIO,Jonh Damico; Roldan SILVERIO,[facility]; Asaf SILVERIO,[facility]
[2017-11-29 00:48] LABS: ABSOLUTE BASOPHIL COUNT 0 /CUMM (0.0-0.2); ABSOLUTE EOSINOPHIL COUNT 0 /CUMM (0.0-0.7); ABSOLUTE GRANULOCYTE CT 8.3 /CUMM (1.4-6.5); ABSOLUTE LYMPH COUNT 0.5 /CUMM (1.2-3.4); ABSOLUTE MONOCYTE COUNT 0.4 /CUMM (0.10-0.60); BASOPHIL % 0.1 % (0.0-2.0); EOSINOPHIL % 0 % (0-5); GRANULOCYTE % 89.8 % (42.2-75.2); HEMATOCRIT 26.7 % (37-47); MEAN CORPUSCULAR HGB 25.2 PG (27.0-31.0); MEAN CORPUSCULAR HGB CONC 31.4 G/DL (33.0-37.0); MEAN CORPUSCULAR VOLUME 80.5 FL (81.0-99.0); MEAN PLATELET VOLUME 9.2 FL (7.4-10.4); PLATELET COUNT 209 /CUMM (130-400); RBC DISTRIBUTION WIDTH 18.2 % (11.5-14.5); RED BLOOD CELL CT 3.32 /CUMM (4.20-5.40); WHITE BLOOD CELL COUNT 9.2 /CUMM (4.8-10.8)
[2017-11-29 00:58] LABS: PTT 42 SEC (25-37)
[2017-11-29 06:50] VITALS: BP 130/58
[2017-11-29 08:00] VITALS: BP 130/58
[2017-11-29 08:38] LABS: ABSOLUTE BASOPHIL COUNT 0 /CUMM (0.0-0.2); ABSOLUTE EOSINOPHIL COUNT 0 /CUMM (0.0-0.7); ABSOLUTE GRANULOCYTE CT 8.9 /CUMM (1.4-6.5); ABSOLUTE MONOCYTE COUNT 0.7 /CUMM (0.10-0.60); BASOPHIL % 0.1 % (0.0-2.0); EOSINOPHIL % 0.1 % (0-5); GRANULOCYTE % 84.4 % (42.2-75.2); HEMATOCRIT 26.9 % (37-47); MEAN CORPUSCULAR HGB 25.7 PG (27.0-31.0); MEAN CORPUSCULAR VOLUME 80.3 FL (81.0-99.0); MEAN PLATELET VOLUME 10.3 FL (7.4-10.4); PLATELET COUNT 207 /CUMM (130-400); RBC DISTRIBUTION WIDTH 17.9 % (11.5-14.5); RED BLOOD CELL CT 3.35 /CUMM (4.20-5.40)
--- NOTE | 2017-11-29 08:38 | PN- Resident CRCU ---
Karri SILVERIO,[facility] 11/29/17 0837: Subjective HPI/CRCU Issues: influenza and COPD exacerbation 24 Hour Events: Patient seen and examined. Pt is TELE hold in ICU. She is currently being treated for influenza and COPD exacerbation along with demand ischemia and Type [address] of unknown duration. She reports improvement in her symptoms. Denies any fevers and chills denies any chest pain or palpitations Tmax 98, heart rate 60 form normal sinus rhythm, RR 20 blood pressure 120/16 oxygen saturation 99% on 2L WBC*count trending up secondary to steroids, H/H remained stable with 1 unit drop Sodium 1:30 potassium 3.2, BUN 18 glucose 461 secondary to steroids Cultures unremarkable CXR IMPRESSION:Stable examination. No lobar consolidation. Objective Vital Signs & I&O Last 8 Hrs of Vitals and I&O: Vital Signs Date Time Temp Pulse Resp B/P B/P Pulse O2 O2 Flow FiO2 Mean Ox Delivery Rate 11/29 1200 97.8 64 18 120/60 99 Nasal 2.0L Cannula 11/29 0919 68 138/60 11/29 0800 Nasal 2.0L Cannula 11/29 0800 97.5 62 20 130/58 99 Nasal 2.0L Cannula 11/29 0650 96.9 64 20 130/58 99 Nasal 2.0L Cannula 11/29 0000 Nasal 2.0L Cannula 11/28 2110 98 Nasal 2.0L Cannula 11/28 2105 74 114/58 11/28 1612 97 Nasal 2.0L Cannula 11/28 1600 96 Nasal 2.0L Cannula 11/28 1600 98.2 69 30 118/60 96 Nasal 2.0L Cannula Intake & Output 11/29 1600 11/29 0800 11/29 0000 Intake Total 259.5 519 Output Total 800 700 Balance -540.5 -181 Intake, IV 139.5 39 Intake, Oral 120 480 Number 1 Bowel Movements Output, Urine 800 700 Exam General Appearance: well developed/nourished, no apparent distress, alert, awake , comfortable Head: atraumatic Neck: normal inspection Respiratory: wheezes Cardiovascular: s1 s2 Gastrointestinal: normal bowel sounds, soft Extremities: no edema Cranial Nerves: normal speech Skin: intact Current Medications: Current Medications Sig/Ck Start time Last Medication Dose Route Stop Time Status Admin Acetaminophen 650 MG Q6P PRN 11/27 1645 AC PO Acetaminophen 1,000 MG Q6P PRN 11/27 1645 AC 11/27 IV 2050 Albuterol Sulfate 3 ML EVERY 4 HRS/AWAKE 11/28 0800 AC 11/29 INH 1234 Allopurinol 300 MG DAILY 11/28 1000 AC 11/29 PO 0919 Amiodarone HCl 100 MG DAILY 11/27 1528 AC 11/29 PO 0919 Apixaban 5 MG BID 11/27 2200 DC 11/28 PO 1005 Aspirin Buffered 81 MG QAM 11/28 1000 AC 11/29 PO 0919 Atorvastatin Calcium 80 MG 1700 11/28 1700 AC 11/28 PO 1706 Atorvastatin Calcium 40 MG 1700 11/27 1700 DC 11/27 PO 1800 Calcium Carbonate 1,500 MG DAILY 11/28 1000 AC 11/29 PO 0919 Cholecalciferol 1,000 IU DAILY 11/28 1000 AC 11/29 PO 0919 Cyanocobalamin 1,000 MCG DAILY 11/28 1000 AC 11/29 PO 0919 Duloxetine HCl 60 MG DAILY 11/27 1531 AC 11/29 PO 0919 Fentanyl Citrate 75 MCG Q3D 11/27 1530 AC 11/27 TOP 1800 Fish Oil 1,050 MG DAILY 11/28 1000 AC 11/29 PO 0919 Fluticasone 2 PUF BID 11/28 1321 AC 11/29 Propionate INH 0920 Furosemide 40 MG QAM 11/27 1533 AC 11/29 PO 0919 Heparin Sodium 5,000 UNIT .STK-MED ONE 11/29 0256 DC (Porcine) IV 11/29 0257 Heparin Sodium 2,248 UNIT BOLUS ONE 11/29 0204 DC 11/29 (Porcine) IV 11/29 0205 0223 Heparin Sodium/ 25,000 UNIT Q24H 11/28 1900 AC 11/28 Dextrose IV 1900 Dextrose/Water 500 ML Ipratropium [place] 2.5 ML EVERY 4 HRS/AWAKE 11/28 1600 AC 11/29 INH 1234 Levothyroxine Sodium 0.125 MG DAILY 11/28 1000 AC 11/29 PO 0919 Magnesium Oxide 400 MG BID 11/27 1530 AC 11/29 PO 0919 Methylprednisolone 40 MG Q6 11/27 1800 DC 11/28 IV 1216 Metoprolol Tartrate 25 MG BID 11/27 1534 AC 11/29 PO 0919 Oseltamivir Phosphate 30 MG BID 11/28 1018 AC 11/29 PO 12/02 1017 0919 Pantoprazole Sodium 40 MG ONCE ONE 11/29 929 DC 11/29 IV 11/29 930 1136 Polyethylene Glycol 17 GM AT BEDTIME PRN 11/27 1645 AC PO Potassium Chloride 40 MEQ ONCE ONE 11/29 929 DC 11/29 PO 11/29 0831 1136 Senna/Docusate Sodium 1 TAB AT BEDTIME PRN 11/27 1645 AC PO Impression/Plan Impression/Problem List Impression: Ms. Lentz is a 73 year F with PMH of CAD S/P stent, Invasive ductal left breast carcinoma status post mastectomy on 03/08/2011, followed by chemotherapy, radiation and anastrazole for lymph node positive disease, with the spine/pelvis metastasis now on radiotherapy and 04/30, HTN, HDL, DM, hypothyroidism, history of atrial fibrillation on a eliqus, Osteoarthritis, GERD, history of compression fractures presented to the [facility] ER with worsening shortness of breath and nonproductive cough for the past 2 weeks, and progressively getting worse, since patient ran out of all of her inhalers and nebulizer medications a few weeks ago. She called her re dye hand Dr. Jean-Baptiste who advised that she come to the ER. Of note, patient had a "jaw infection" who was given augmentin x 6 weeks prior this admission. She was tested positive for flu. She was being treated for acute exacerbation of COPD and influenza on general medicine floor. Patient had up trending troponins and was transferred to ICU as telemetry hold yesterday. The patient is currently being treated and evaluated for following conditions #Acute COPD exacerbation with influenza A We're going to treat patient for COPD exacerbation and started on Tamiflu -Supplemental O2 as needed -TRC/Neb with ipratropium and albuterol for wheezing -Flovent 110 2 puff bid -Avoid systemic steroids -Tamiflu 30 mg twice a day dose confirmed from pharmacy after considering renal clearance. -Blood cultures no growth so far -Sputum cultures pending -Urine strep and Legionella negative -Repeat chest does not show any evidence of consolidation. -Monitor fever and WBC curve expect a bump in WBC curve secondary to steroids Of note patient is leukopenic (immunosuppressed) secondary to chemotherapy -WBC count trending up normal source of infection patient remains afebrile likely secondary to steroids which has been discontinued #Myocardial infarction anteroseptal of unknown duration probably weeks and demand ischemia Patient was initially transferred from general medicine floor to ICU as telemetry floor for elevation in troponins with ST depression in V1 and V2 likely secondary to demand ischemia in setting of influenza. There are also deep Q waves in inferior leads of suggestive of a myocardial infarction of unknown duration probably few weeks as per cardiology Dr.Avi Montilla -Troponins trending down. -Echocardiogram Moderate to severe anteroseptal hypokinesis. Mildly abnormal left ventricular ejection fraction estimated at 40- 45%. -Continue aspirin, beta rae and increase dose of Lipitor to 80 mg as per cardiology recommendations. -Pt was started on IV heparin drip yesterday, she is guaiac-positive clear. H/H remains stable -After discussion with gastroenterology and cardiology we are continuing to continue patient on IV heparin and do q12 CBC [address] Dr. Ontiveros -Plan to transfer her to [facility] for cardiac catheterization on Friday #Electrolyte derangement -Hypokalemia with potassium of 3.2 replete accordingly and monitor BEP -Hyponatremia 130 monitor BEP and put patient on Fluid restriction -Hyperglycemia with glucose 461 start patient on accu checks Most likely secondary to steroids. We'll do a fasting glucose level in a.m. as well. We will initiate low-dose sliding scale if persistently elevated -Hyperphosphatemia phosphate 6.8 likely secondary to hyperglycemia -Hypocalcemia Ca 7 can be secondary to hyperphosphatemia continue to monitor BEP #Chronic conditions including CAD, Left Breast CA w/ spine/pelvis metastasis, HTN, HDL, DM, hypothyroidism, A-fib on eliqus, Osteoarthritis, GERD Continue home meds including Synthroids, B12/Tomah-3/V-D/MgOx, Tums, Aspirin 81, Allopurinol 300mg qd, Eliquis 5mg BID, Amiodarone 100mg qd, Metoprolol 25mg BID, Lasix 40mg qd, Cymbalta 60mg qd, Fentanyl Patch, DVT prophylaxis IV + ALPS/Heart Healthy Diet/Full Code *Patient will be nothing by mouth on Friday night for anticipated catheterization on Friday morning Problem List: 1. COPD exacerbation 2. Influenza Pain Ratin Tomorrow's Labs & Rationales: cbc icu bundle Plan DVT/Prophylaxis: mechanical, pharmacological Code Status: Full Code Ana Ontiveros 11/29/17 1105: Attending MD Review Statement Attending Sign Off Attending Cosign Statement: I have: examined this patient, reviewed aval EMR data, personally reviewd images, discussd w/resident/PA/DIGITAL ADVISOR, discussed mgmt plan w/sanjay, discussed mgmt plan w/CM. Other Findings: 77 o/f with pmh of CAD S/P stent, Invasive ductal left breast carcinoma status post mastectomy on 03/08/2011, followed by chemotherapy, radiation and anastrazole for lymph node positive disease, with the spine/pelvis metastasis now on radiotherapy and 04/30, HTN, HDL, DM, hypothyroidism, history of atrial fibrillation on a eliqus, Osteoarthritis, GERD, history of compression fractures presented to the [facility] ER with CC of SOB, cough and congestion for past few days. Patient is found to have b/l wheezing on exam. Patient denies chest pain, leg swelling, no jvd appreciated. Labs noted with elevation of troponin. Guiac+ stools. Vitals stable Chest xray with diffuse interstitial opacities. EKG sinus ryhtm with T wave inversions in V2. ECHO 2016 with preserved EF 60%, ECHO this admission EF 40% with anteroseptal hypokinesia. ASSESSMENT AND PLAN Patient admitted to [facility] for Acute respiratroy insufficiency from COPD and new onset congestive heart failure 2/2 viral bronchitis and positive influenza and type 2 CT on this admission, possible had ACS event in recent past. f/u Pulmonary Dr Jean-Baptiste. Cardiology consulted, iv heparin, statin, b rae, lasix 40 cardiac cath plan as per cardiology. Guaic+ h/o benign polyps in past with slow drift h/h. GI consutled, recommned continue a/c, inform cardiology. Contine home meds. Patient is agreeable for cardiac cath. gi/dvt prophyalxis full code.
[2017-11-29 08:41] LABS: PTT > 120 SEC (25-37)
[2017-11-29 09:39] LABS: WHITE BLOOD CELL COUNT 10.5 /CUMM (4.8-10.8)
--- NOTE | 2017-11-29 10:31 | PN- Pulmonary ---
Subjective HPI/Critical Care Issues: Clinically improving Afebrile Was noted to have heme positive stools On 2 L nasal cannula saturating 99% No other complaints review of symptoms otherwise unremarkable Urine output has been adequate Chest x-ray from yesterday reviewed which showed no lobar consolidation Cultures were unremarkable other than positive for Tamiflu Sodium is reduced to 1:30 anion gap is 12 her sugar was elevated significantly patient had received steroids white count 10.5 hemoglobin 8.6 which is stable platelets 207 Objective Current Medications: Current Medications Sig/Ck Start time Last Medication Dose Route Stop Time Status Admin Acetaminophen 650 MG Q6P PRN 11/27 1645 AC PO Acetaminophen 1,000 MG Q6P PRN 11/27 1645 AC 11/27 IV 2050 Albuterol Sulfate 3 ML EVERY 4 HRS/AWAKE 11/28 0800 AC 11/29 INH 0854 Allopurinol 300 MG DAILY 11/28 1000 AC 11/29 PO 0919 Amiodarone HCl 100 MG DAILY 11/27 1528 AC 11/29 PO 0919 Apixaban 5 MG BID 11/27 2200 DC 11/28 PO 1005 Aspirin Buffered 81 MG QAM 11/28 1000 AC 11/29 PO 0919 Atorvastatin Calcium 80 MG 1700 11/28 1700 AC 11/28 PO 1706 Atorvastatin Calcium 40 MG 1700 11/27 1700 DC 11/27 PO 1800 Calcium Carbonate 1,500 MG DAILY 11/28 1000 AC 11/29 PO 0919 Cholecalciferol 1,000 IU DAILY 11/28 1000 AC 11/29 PO 0919 Cyanocobalamin 1,000 MCG DAILY 11/28 1000 AC 11/29 PO 0919 Duloxetine HCl 60 MG DAILY 11/27 1531 AC 11/29 PO 0919 Fentanyl Citrate 75 MCG Q3D 11/27 1530 AC 11/27 TOP 1800 Fish Oil 1,050 MG DAILY 11/28 1000 AC 11/29 PO 0919 Fluticasone 2 PUF BID 11/28 1321 AC 11/29 Propionate INH 0920 Furosemide 40 MG QAM 11/27 1533 AC 11/29 PO 0919 Heparin Sodium 2,248 UNIT BOLUS ONE 11/29 0204 DC 11/29 (Porcine) IV 11/29 0205 0223 Heparin Sodium/ 25,000 UNIT Q24H 11/28 1900 AC 11/28 Dextrose IV 1900 Dextrose/Water 500 ML Ipratropium [place] 2.5 ML EVERY 4 HRS/AWAKE 11/28 1600 AC 11/29 INH 0854 Levothyroxine Sodium 0.125 MG DAILY 11/28 1000 AC 11/29 PO 0919 Magnesium Oxide 400 MG BID 11/27 1530 AC 11/29 PO 0919 Methylprednisolone 40 MG Q6 11/27 1800 DC 11/28 IV 1216 Metoprolol Tartrate 25 MG BID 11/27 1534 AC 11/29 PO 0919 Oseltamivir Phosphate 30 MG BID 11/28 1018 AC 11/29 PO 12/02 1017 0919 Oseltamivir Phosphate 75 MG BID 11/28 1016 DC PO 12/02 1015 Oseltamivir Phosphate 30 MG DAILY 11/28 1000 DC PO 12/02 0959 Pantoprazole Sodium 40 MG ONCE ONE 11/29 0930 DC IV 11/29 0931 Polyethylene Glycol 17 GM AT BEDTIME PRN 11/27 1645 AC PO Potassium Chloride 40 MEQ ONCE ONE 11/29 0930 DC PO 11/29 0931 Potassium Chloride 20 MEQ ONCE ONE 11/28 1015 DC 11/28 PO 11/28 1016 1058 Potassium Chloride 40 MEQ ONCE ONE 11/28 0815 CAN PO 11/28 0816 Senna/Docusate Sodium 1 TAB AT BEDTIME PRN 11/27 1645 AC PO Vital Signs & I&O Last 24 Hrs of Vitals and I&O: Vital Signs Date Time Temp Pulse Resp B/P B/P Pulse O2 O2 Flow FiO2 Mean Ox Delivery Rate 11/29 0919 68 138/60 11/29 0800 Nasal 2.0L Cannula 11/29 0800 97.5 62 20 130/58 99 Nasal 2.0L Cannula 11/29 0650 96.9 64 20 130/58 99 Nasal 2.0L Cannula 11/29 0000 Nasal 2.0L Cannula 11/28 2110 98 Nasal 2.0L Cannula 11/28 2105 74 114/58 11/28 1612 97 Nasal 2.0L Cannula 11/28 1600 96 Nasal 2.0L Cannula 11/28 1600 98.2 69 30 118/60 96 Nasal 2.0L Cannula 11/28 1057 64 11/28 1004 63 126/68 Intake & Output 11/29 1600 11/29 0800 11/29 0000 Intake Total 259.5 519 Output Total 800 700 Balance -540.5 -181 Intake, IV 139.5 39 Intake, Oral 120 480 Number 1 Bowel Movements Output, Urine 800 700 Impression/Plan Impression/Plan Impression/Plan: General Appearance Alert, Oriented X3, Cooperative, No Acute Distress Skin No Significant Lesion Skin Temp/Moisture Exam: Warm/Dry Sepsis Skin Exam (color): Normal for Ethnicity HEENT Atraumatic, PERRLA Neck Supple, No JVD Cardiovascular Regular Rate, Normal S1, Normal S2 Lungs Normal Air Movement, Bilateral wheezing Abdomen Normal Bowel Sounds, Soft, No Tenderness Neurological Normal Speech, Strength at 5/5 X4 Ext Extremities No Cyanosis, No Edema, Normal Pulses CONCLUSIONS Left ventricular cavity size normal. Normal left ventricular wall thickness. There is severe anteroseptal hypokinesis. Left ventricular ejection fraction is estimated at 40 %. Normal right ventricular size and function. Mild left atrial dilatation. [id number] mitral regurgitation. Right ventricular systolic pressure estimated at 52 mmHg. This is a lady with documented advanced metastatic breast cancer with multiple metastases to most of her spine is on active rx from onc, with previous xrt, hypertension, type 2 diabetes, history of atrial fibrillation on eloquis and on amiodarone came in with * Resolved resp insuff due to influenza pna, with chronic lung disease with periodic bronchospasm. Pt has remote history of smoking quit more than 35 yrs ago and has mild chronic lung disease. Pt has chronic obstrucitve and restrictive lung disease * PRevious IHD with stent pafib on eloquis now with NSTMI with recent cardiac insult * Very advanced breast cancer with multiple metastases to the spine * Pafib * Chronic pain syndrome due to metastatic breast cancer who is on fentanyl and Cymbalta * Hypertension, diabetes, previous history of gout, mild to moderate COPD, multiple compression fractures due to metastatic metastases to the spine, worsening mental status in the recent past suggestive of mild dementia. * CHronic lower ext edema with venous insuff with diastolic heart with PUlm htn due to this and with chronic obstructive and restrictive lung disease * Heme positive stool REC COnt tamiflu Check fsg Dc iv steroids and no further systemic steroids NEBs atc with ipratropium and use albuterol only if wheezing Flovent 110 2 puff bid Cont other meds Cardio to follow Wean oxygen to off cont other meds
--- NOTE | 2017-11-29 11:23 | PN- Cardiology ---
Subjective Subjective: Breathing is improving. Still with no chest pain. Objective Vital Signs and I&Os Vital Signs Date Time Temp Pulse Resp B/P B/P Pulse O2 O2 Flow FiO2 Mean Ox Delivery Rate 11/29 0919 68 138/60 11/29 0800 Nasal 2.0L Cannula 11/29 0800 97.5 62 20 130/58 99 Nasal 2.0L Cannula 11/29 0650 96.9 64 20 130/58 99 Nasal 2.0L Cannula 11/29 0000 Nasal 2.0L Cannula 11/28 2110 98 Nasal 2.0L Cannula 11/28 2105 74 114/58 11/28 1612 97 Nasal 2.0L Cannula 11/28 1600 96 Nasal 2.0L Cannula 11/28 1600 98.2 69 30 118/60 96 Nasal 2.0L Cannula Intake & Output 11/29 1600 11/29 0800 11/29 0000 11/28 1600 11/28 0800 11/28 0000 Intake Total 259.5 519 495 100 250 Output Total 800 700 600 600 Balance -540.5 -181 -105 100 -350 Intake, IV 139.5 39 15 100 Intake, Oral 120 480 480 100 150 Number 1 0 Bowel Movements Output, Urine 800 700 600 600 Patient 124 lb Weight Physical Exam: General: no apparent distress. Alert. Eyes: No obvious scleral icterus. HEENT: No jugular venous distention or abnormal jugular venous pulsations. Cardiovascular: Normal intensity S1/S2. PMI not grossly displaced. Respiratory: Lungs clear to auscultation bilaterally. Abdomen: Soft, nontender with no guarding or rebound tenderness. Musculoskeletal: No clubbing or cyanosis noted Skin: No obvious rashes or ulcerations. Neurologic: No gross focal deficits noted. Lymph: No gross lymphadenopathy. Current Medications: Current Medications Sig/Ck Start time Last Medication Dose Route Stop Time Status Admin Acetaminophen 650 MG Q6P PRN 11/27 1645 AC PO Acetaminophen 1,000 MG Q6P PRN 11/27 1645 AC 11/27 IV 2050 Albuterol Sulfate 3 ML EVERY 4 HRS/AWAKE 11/28 0800 AC 11/29 INH 0854 Allopurinol 300 MG DAILY 11/28 1000 AC 11/29 PO 0919 Amiodarone HCl 100 MG DAILY 11/27 1528 AC 11/29 PO 0919 Apixaban 5 MG BID 11/27 2200 DC 02/16 PO 1005 Aspirin Buffered 81 MG QAM 11/28 1000 AC 11/29 PO 0919 Atorvastatin Calcium 80 MG 1700 11/28 1700 AC 11/28 PO 1706 Atorvastatin Calcium 40 MG 1700 11/27 1700 DC 11/27 PO 1800 Calcium Carbonate 1,500 MG DAILY 11/28 1000 AC 11/29 PO 0919 Cholecalciferol 1,000 IU DAILY 11/28 1000 AC 11/29 PO 0919 Cyanocobalamin 1,000 MCG DAILY 11/28 1000 AC 11/29 PO 0919 Duloxetine HCl 60 MG DAILY 11/27 1531 AC 11/29 PO 0919 Fentanyl Citrate 75 MCG Q3D 11/27 1530 AC 11/27 TOP 1800 Fish Oil 1,050 MG DAILY 11/28 1000 AC 11/29 PO 0919 Fluticasone 2 PUF BID 11/28 1321 AC 11/29 Propionate INH 0920 Furosemide 40 MG QAM 11/27 1533 AC 11/29 PO 0919 Heparin Sodium 5,000 UNIT .STK-MED ONE 11/29 0256 DC (Porcine) IV 11/29 0257 Heparin Sodium 2,248 UNIT BOLUS ONE 11/29 0204 DC 11/29 (Porcine) IV 11/29 0205 0223 Heparin Sodium/ 25,000 UNIT Q24H 11/28 1900 AC 11/28 Dextrose IV 1900 Dextrose/Water 500 ML Ipratropium [place] 2.5 ML EVERY 4 HRS/AWAKE 11/28 1600 AC 11/29 INH 0854 Levothyroxine Sodium 0.125 MG DAILY 11/28 1000 AC 11/29 PO 0919 Magnesium Oxide 400 MG BID 11/27 1530 AC 11/29 PO 0919 Methylprednisolone 40 MG Q6 11/27 1800 DC 11/28 IV 1216 Metoprolol Tartrate 25 MG BID 11/27 1534 AC 11/29 PO 0919 Oseltamivir Phosphate 30 MG BID 11/28 1018 AC 11/29 PO 12/02 1017 0919 Pantoprazole Sodium 40 MG ONCE ONE 11/29 0930 DC IV 11/29 0931 Polyethylene Glycol 17 GM AT BEDTIME PRN 11/27 1645 AC PO Potassium Chloride 40 MEQ ONCE ONE 11/29 0930 DC PO 11/29 0931 Senna/Docusate Sodium 1 TAB AT BEDTIME PRN 11/27 1645 AC PO Results Last 48 Hrs of Labs/Mics: Laboratory Tests 11/29/17 0713: Anion Gap 12, Estimated GFR > 60, Glucose 461 H, Calcium 7.0 L, Phosphorus 6.8 H, Magnesium 1.9, Total Bilirubin 0.2, AST 23, ALT 33, Albumin 2.5 L, APTT > 120 *H, CBC w Diff NO MAN DIFF REQ, RBC 3.35 L, MCV 80.3 L, MCH 25.7 L, MCHC 32.0 L, RDW 17.9 H, MPV 10.3, Gran % 84.4 H, Lymphocytes % 9.2 L, Monocytes % 6.2, Eosinophils % 0.1, Basophils % 0.1, Absolute Granulocytes 8.9 H, Absolute Lymphocytes 1.0 L, Absolute Monocytes 0.7 H, Absolute Eosinophils 0, Absolute Basophils 0 11/29/17 0033: APTT 42 H, CBC w Diff NO MAN DIFF REQ, RBC 3.32 L, MCV 80.5 L, MCH 25.2 L, MCHC 31.4 L, RDW 18.2 H, MPV 9.2, Gran % 89.8 H, Lymphocytes % 5.3 L, Monocytes % 4.8, Eosinophils % 0, Basophils % 0.1, Absolute Granulocytes 8.3 H, Absolute Lymphocytes 0.5 L, Absolute Monocytes 0.4, Absolute Eosinophils 0, Absolute Basophils 0 11/28/17 1455: CBC w Diff NO MAN DIFF REQ, RBC 3.86 L, MCV 80.8 L, MCH 25.7 L, MCHC 31.9 L, RDW 17.5 H, MPV 9.9, Gran % 83.7 H, Lymphocytes % 8.3 L, Monocytes % 7.6, Eosinophils % 0, Basophils % 0.4, Absolute Granulocytes 6.5, Absolute Lymphocytes 0.6 L, Absolute Monocytes 0.6, Absolute Eosinophils 0, Absolute Basophils 0 11/28/17 1010: Troponin I 0.37 *H 11/28/17 0430: Anion Gap 12, Estimated GFR > 60, BUN/Creatinine Ratio 18.9, Magnesium 2.1, Troponin I 0.44 *H, CBC w Diff NO MAN DIFF REQ, RBC 3.71 L, MCV 80.4 L, MCH 25.8 L, MCHC 32.2 L, RDW 18.3 H, MPV 8.7, Gran % 73.9, Lymphocytes % 23.4, Monocytes % 2.7, Eosinophils % 0, Basophils % 0, Absolute Granulocytes 2.7, Absolute Lymphocytes 0.9 L, Absolute Monocytes 0.1, Absolute Eosinophils 0, Absolute Basophils 0 11/28/17 0400: Troponin I Cancelled 11/27/17 2245: Troponin I 0.34 *H 11/27/17 1305: Virus Culture Pending 11/27/17 1259: Anion Gap 10, Estimated GFR 54 L, BUN/Creatinine Ratio 13.0, Glucose 99, Calcium 9.5, Total Bilirubin 0.3, AST 55 H, ALT 39, Alkaline Phosphatase 178 H , Troponin I 0.05, [id number] Pept 6640 H, Total Protein 6.5, Albumin 3.9, Globulin 2.6, Albumin/Globulin Ratio 1.5, PT 13.2 H, INR 1.26 H, CBC w Diff NO MAN DIFF REQ, RBC 3.77 L, MCV 80.8 L, MCH 25.8 L, MCHC 32.0 L, RDW 17.4 H, MPV 8.7, Gran % 48.8, Lymphocytes % 39.5, Monocytes % 9.1, Eosinophils % 2.5, Basophils % 0.1, Absolute Granulocytes 1.8, Absolute Lymphocytes 1.5, Absolute Monocytes 0.3, Absolute Eosinophils 0.1, Absolute Basophils 0 Microbiology 11/28 1200 URINE ROUT: Legionella Antigen - COMP 11/28 1200 URINE ROUT: Streptococcus pneumoniae Antigen (M - COMP 11/28 0545 UPPER RESP: Surveillance Culture - COMP 11/27 1305 NASOPHARYN: Influenza Virus A & B Rapid Smear - COMP INFLUENZA TYPE A Recent Imaging Studies: Telemetry tracings were personally reviewed shows sinus rhythm with a 4 beat ventricular run Echo Left ventricular cavity size normal. Normal left ventricular wall thickness. There is severe anteroseptal hypokinesis. Left ventricular ejection fraction is estimated at 40 %. Normal right ventricular size and function. Mild left atrial dilatation. [id number] mitral regurgitation. Right ventricular systolic pressure estimated at 52 mmHg. Trey Montilla M.D. (Electronically Signed) Final Date: 28 November 2017 13:37 Assessment/Plan Assessment/Plan 1. Myocardial infarction, likely recent Type 1 2. Influenza/COPD 3. Metastatic breast cancer with the spinal and pelvic metastases 4. Paroxysmal atrial fibrillation on Eliquis and amiodarone, currently in sinus rhythm 5. History of coronary artery disease with bare metal stent to the RCA in 2007 5. Chronic pain syndrome and history of compression fractures 6. Hypertension/hyperlipidemia/diabetes/hypothyroidism 7. COPD 8. History of lower extremity edema/venous insufficiency 9. Diastolic dysfunction with pulmonary hypertension by prior echocardiogram The patient is feeling better today and still has no chest pain. Echocardiogram confirmed my suspicion that she had suffered an anteroseptal myocardial infarction probably within the last few weeks. We again had an extensive discussion today about considering medical therapy versus invasive percutaneous coronary intervention and at this time she would like to proceed with the plan for cardiac catheterization. We are holding her Eliquis and continuing on heparin drip along with aspirin, B-rae, and statin therapy. Hemoglobin remains grossly stable. She should be nothing by mouth after midnight on Friday with plan to transfer her to [facility] for cardiac catheterization on Friday. She remains in sinus rhythm. Ender Montilla MD [facility] Continue telemetry? Yes
[2017-11-29 12:00] VITALS: BP 120/60
[2017-11-29 16:00] VITALS: BP 110/70
[2017-11-29 16:30] LABS: PTT 49 SEC (25-37)
[2017-11-29 23:08] LABS: ABSOLUTE BASOPHIL COUNT 0 /CUMM (0.0-0.2); ABSOLUTE EOSINOPHIL COUNT 0 /CUMM (0.0-0.7); ABSOLUTE GRANULOCYTE CT 7.5 /CUMM (1.4-6.5); ABSOLUTE LYMPH COUNT 1.3 /CUMM (1.2-3.4); ABSOLUTE MONOCYTE COUNT 0.5 /CUMM (0.10-0.60); BASOPHIL % 0.1 % (0.0-2.0); EOSINOPHIL % 0.1 % (0-5); GRANULOCYTE % 80.1 % (42.2-75.2); HEMATOCRIT 28.9 % (37-47); MEAN CORPUSCULAR HGB 24.9 PG (27.0-31.0); MEAN CORPUSCULAR HGB CONC 30.9 G/DL (33.0-37.0); MEAN CORPUSCULAR VOLUME 80.7 FL (81.0-99.0); MEAN PLATELET VOLUME 9.4 FL (7.4-10.4); PLATELET COUNT 236 /CUMM (130-400); RBC DISTRIBUTION WIDTH 17.8 % (11.5-14.5); RED BLOOD CELL CT 3.58 /CUMM (4.20-5.40); WHITE BLOOD CELL COUNT 9.4 /CUMM (4.8-10.8)
[2017-11-29 23:18] LABS: PTT 79 SEC (25-37)
[2017-11-30] VITALS: BP 114/74
[2017-11-30 06:03] LABS: ABSOLUTE BASOPHIL COUNT 0 /CUMM (0.0-0.2); ABSOLUTE EOSINOPHIL COUNT 0 /CUMM (0.0-0.7); ABSOLUTE GRANULOCYTE CT 5.3 /CUMM (1.4-6.5); ABSOLUTE LYMPH COUNT 0.9 /CUMM (1.2-3.4); ABSOLUTE MONOCYTE COUNT 0.4 /CUMM (0.10-0.60); BASOPHIL % 0 % (0.0-2.0); EOSINOPHIL % 0.3 % (0-5); HEMATOCRIT 26.2 % (37-47); MEAN CORPUSCULAR HGB 25.6 PG (27.0-31.0); MEAN CORPUSCULAR HGB CONC 31.7 G/DL (33.0-37.0); MEAN CORPUSCULAR VOLUME 80.8 FL (81.0-99.0); PLATELET COUNT 201 /CUMM (130-400); RBC DISTRIBUTION WIDTH 17.6 % (11.5-14.5); RED BLOOD CELL CT 3.25 /CUMM (4.20-5.40); WHITE BLOOD CELL COUNT 6.6 /CUMM (4.8-10.8)
[2017-11-30 08:00] VITALS: BP 168/76
--- NOTE | 2017-11-30 08:58 | PN- Pulmonary ---
Subjective HPI/Critical Care Issues: Doing well Stable Nausea Objective Current Medications: Current Medications Sig/Ck Start time Last Medication Dose Route Stop Time Status Admin Acetaminophen 650 MG Q6P PRN 11/27 1645 AC PO Acetaminophen 1,000 MG Q6P PRN 11/27 1645 AC 11/27 IV 2050 Albuterol Sulfate 3 ML EVERY 4 HRS/AWAKE 11/28 0800 AC 11/30 INH 0825 Allopurinol 300 MG DAILY 11/28 1000 AC 11/29 PO 0919 Amiodarone HCl 100 MG DAILY 11/27 1528 AC 11/29 PO 0919 Aspirin Buffered 81 MG QAM 11/28 1000 AC 11/29 PO 0919 Atorvastatin Calcium 80 MG 1700 11/28 1700 AC 11/29 PO 1659 Calcium Carbonate 1,500 MG DAILY 11/28 1000 AC 11/29 PO 0919 Cholecalciferol 1,000 IU DAILY 11/28 1000 AC 11/29 PO 0919 Cyanocobalamin 1,000 MCG DAILY 11/28 1000 AC 11/29 PO 0919 Duloxetine HCl 60 MG DAILY 11/27 1531 AC 11/29 PO 0919 Fentanyl Citrate 75 MCG Q72H 11/29 1615 AC 11/29 TOP 1700 Fentanyl Citrate 75 MCG Q3D 11/27 1530 DC 11/27 TOP 1800 Fish Oil 1,050 MG DAILY 11/28 1000 AC 11/29 PO 0919 Fluticasone 2 PUF BID 11/28 1321 AC 11/29 Propionate INH 2119 Furosemide 40 MG QAM 11/27 1533 AC 11/29 PO 0919 Heparin Sodium 1,700 UNIT ONE ONE 11/29 1645 DC 11/29 (Porcine) IV 11/29 1646 1645 Heparin Sodium/ 25,000 UNIT Q24H 11/28 1900 AC 11/30 Dextrose IV 0628 Dextrose/Water 500 ML Ipratropium [place] 2.5 ML EVERY 4 HRS/AWAKE 11/28 1600 AC 11/30 INH 0826 Levothyroxine Sodium 0.125 MG DAILY 11/28 1000 AC 11/29 PO 0919 Magnesium Oxide 400 MG BID 11/27 1530 AC 11/29 PO 2119 Metoprolol Tartrate 25 MG BID 11/27 1534 AC 11/29 PO 2119 Oseltamivir Phosphate 30 MG BID 11/28 1018 AC 11/29 PO 12/02 1017 2119 Pantoprazole Sodium 40 MG ONCE ONE 11/29 0930 DC 11/29 IV 11/29 0931 1136 Phosphate 250 MG ONCE ONE 11/30 0700 DC PO 11/30 0701 Polyethylene Glycol 17 GM AT BEDTIME PRN 11/27 1645 AC 11/29 PO 1700 Potassium Chloride 40 MEQ ONCE ONE 11/29 0930 DC 11/29 PO 11/29 0931 1136 Senna/Docusate Sodium 1 TAB AT BEDTIME PRN 11/27 1645 AC PO Vital Signs & I&O Last 24 Hrs of Vitals and I&O: Vital Signs Date Time Temp Pulse Resp B/P B/P Pulse O2 O2 Flow FiO2 Mean Ox Delivery Rate 11/30 0846 96 Nasal 2.0L Cannula 11/30 0800 97.8 71 22 168/76 96 Nasal 2.0L Cannula 11/30 0000 98 Nasal 2.0L Cannula 11/30 0000 98.4 60 18 114/74 95 Nasal 2.0L Cannula 11/29 1923 95 Nasal 2.0L Cannula 11/29 1600 99 Nasal 2.0L Cannula 11/29 1600 97.9 70 20 110/70 99 Nasal 2.0L Cannula 11/29 1200 97.8 64 18 120/60 99 Nasal 2.0L Cannula 11/29 0919 68 138/60 Intake & Output 11/30 1600 11/30 0800 11/30 0000 Intake Total 365.6 361.2 Output Total 700 300 Balance -334.4 61.2 Intake, IV 125.6 121.2 Intake, Oral 240 240 Output, Urine 700 300 Impression/Plan Impression/Plan Impression/Plan: Impression/Plan: General Appearance Alert, Oriented X3, Cooperative, No Acute Distress Skin No Significant Lesion Skin Temp/Moisture Exam: Warm/Dry Sepsis Skin Exam (color): Normal for Ethnicity HEENT Atraumatic, PERRLA Neck Supple, No JVD Cardiovascular Regular Rate, Normal S1, Normal S2 Lungs Normal Air Movement, Bilateral wheezing Abdomen Normal Bowel Sounds, Soft, No Tenderness Neurological Normal Speech, Strength at 5/5 X4 Ext Extremities No Cyanosis, No Edema, Normal Pulses CONCLUSIONS Left ventricular cavity size normal. Normal left ventricular wall thickness. There is severe anteroseptal hypokinesis. Left ventricular ejection fraction is estimated at 40 %. Normal right ventricular size and function. Mild left atrial dilatation. [id number] mitral regurgitation. Right ventricular systolic pressure estimated at 52 mmHg. This is a lady with documented advanced metastatic breast cancer with multiple metastases to most of her spine is on active rx from onc, with previous xrt, hypertension, type 2 diabetes, history of atrial fibrillation on eloquis and on amiodarone came in with * Resolved resp insuff due to influenza pna, with chronic lung disease with periodic bronchospasm. Pt has remote history of smoking quit more than 35 yrs ago and has mild chronic lung disease. Pt has chronic obstrucitve and restrictive lung disease * PRevious IHD with stent pafib on eloquis now with NSTMI with recent cardiac insult * Very advanced breast cancer with multiple metastases to the spine * Pafib * Chronic pain syndrome due to metastatic breast cancer who is on fentanyl and Cymbalta * Hypertension, diabetes, previous history of gout, mild to moderate COPD, multiple compression fractures due to metastatic metastases to the spine, worsening mental status in the recent past suggestive of mild dementia. * CHronic lower ext edema with venous insuff with diastolic heart with PUlm htn due to this and with chronic obstructive and restrictive lung disease * Heme positive stool REC COnt tamiflu Watch hemoglobin and stool Cont heparin Prob cardiac cath in am Check fsg Change nebs to prn Start spiriva one puff daily Flovent 110 2 puff bid Cont other meds Cardio to follow Wean oxygen to off cont other meds
--- NOTE | 2017-11-30 09:53 | PN- Resident CRCU ---
Radha SILVERIO,Jah 11/30/17 0953: Subjective HPI/CRCU Issues: Patient seen and examined. She is seen sitting upright in bed resting comfortably maintained on supplemental oxygen via nasal cannula. She appears to be in no acute distress. She reports that her breathing feelings mildly better today but admits to persistent fatigue with weakness. She otherwise denies any fever, chills, chest pain, palpitations. Objective Vital Signs & I&O Last 8 Hrs of Vitals and I&O: VS since 0000 -TMAX 97.8 -HR 60-74 -RR 18-20 -BP 114-168 / 74-88 -O2 95-98% on 2.0L Exam General Appearance: awake, comfortable, lethargic Other Physical Findings: GEN: thin, chronically ill appearing elderly woman appearing tired, but in no acute distress HEENT: NCAT, PERRL, EOMI, anicteric sclera, MMM, nasal cannula in place NECK: Supple, no JVD, Trachea midline CARD: Normal S1/ S2, no m/g/r; RRR PULM: Diffuse wheezing without crackles, audible productive cough ABD: Soft, NT, ND, BS+ NEURO: Awake but somnolent, CN II-XII grossly intact EXT: normal pulses / capillary refill, no edema Current Medications: Current Medications Sig/Ck Start time Last Medication Dose Route Stop Time Status Admin Acetaminophen 650 MG Q6P PRN 11/27 1645 AC 11/30 PO 0935 Acetaminophen 1,000 MG Q6P PRN 11/27 1645 AC 11/27 IV 2050 Albuterol Sulfate 3 ML Q4P PRN 11/30 1000 AC INH Albuterol Sulfate 3 ML EVERY 4 HRS/AWAKE 11/28 0800 DC 11/30 INH 0825 Allopurinol 300 MG DAILY 11/28 1000 AC 11/30 PO 0938 Amiodarone HCl 100 MG DAILY 11/27 1528 AC 11/30 PO 0928 Aspirin Buffered 81 MG QAM 11/28 1000 AC 11/30 PO 0928 Atorvastatin Calcium 80 MG 1700 11/28 1700 AC 11/29 PO 1659 Calcium Carbonate 1,500 MG DAILY 11/28 1000 AC 11/30 PO 0939 Cholecalciferol 1,000 IU DAILY 11/28 1000 AC 11/30 PO 0938 Cyanocobalamin 1,000 MCG DAILY 02/16 1000 AC 11/30 PO 0938 Duloxetine HCl 60 MG DAILY 11/27 1531 AC 11/30 PO 0938 Fentanyl Citrate 75 MCG Q72H 11/29 1615 AC 11/29 TOP 1700 Fentanyl Citrate 75 MCG Q3D 11/27 1530 DC 11/27 TOP 1800 Fish Oil 1,050 MG DAILY 11/28 1000 AC 11/30 PO 0938 Fluticasone 2 PUF BID 11/28 1321 AC 11/30 Propionate INH 0937 Furosemide 40 MG QAM 11/27 1533 AC 11/30 PO 0928 Heparin Sodium 1,700 UNIT ONE ONE 11/29 1645 DC 11/29 (Porcine) IV 11/29 1646 1645 Heparin Sodium/ 25,000 UNIT Q24H 11/28 1900 AC 11/30 Dextrose IV 0628 Dextrose/Water 500 ML Ipratropium [place] 2.5 ML Q4P PRN 11/30 1000 AC INH Ipratropium [place] 2.5 ML EVERY 4 HRS/AWAKE 11/28 1600 DC 11/30 INH 0826 Levothyroxine Sodium 0.125 MG DAILY 11/28 1000 AC 11/30 PO 0928 Magnesium Oxide 400 MG BID 11/27 1530 AC 11/30 PO 0938 Metoprolol Tartrate 25 MG BID 11/27 1534 AC 11/30 PO 0928 Oseltamivir Phosphate 30 MG BID 11/28 1018 AC 11/30 PO 12/02 1017 0938 Phosphate 250 MG ONCE ONE 11/30 0700 DC 11/30 PO 11/30 0701 0929 Polyethylene Glycol 17 GM AT BEDTIME PRN 11/27 1645 AC 11/29 PO 1700 Senna/Docusate Sodium 1 TAB AT BEDTIME PRN 11/27 1645 AC 11/30 PO 0938 Impression/Plan Impression/Problem List Impression: 73 year old woman with multipled medical problems significant for non-oxygen depdent COPD, DCIS s/p mastectomy/chemo/radiation on anastrole, and CAD s/p PCI with stent seen for evaluation of cough for two weeks found to have influenza. Patient was admitted to the ICU for concern of acute coronary syndrome with troponemia. Echocardiogram demostrated findings consistent with a recent anteroseptal [place]. Patient remains afebrile without leukocytosis; she is currently receiving tamilfu for her influenza. She remains on supplemental oxygen and is persistently wheezy depsite nebulizer treatments; steroids are avoided in the context of active influenza as there is negative mortality assocaited with it. She is tolerating the Heparin drip well without any evidence of bleeding; she denies any chest pain. She is to be kept NPO tonight in anticipation for cardiac catheterization tomorrow. Problem List -Recent Anteroseptal myocardial infarction -Acute COPD exacerbation -Influenza A, on Tamiflu -Hypokalemia -Hyponatremia -CAD s/p PCI with sten -Metastatic DCIS s/p mastectomy s/p chemo/radiation, on anastrazole -Atrial Fibrillation, on Eliquis -Diabetes Mellitus -Hypertension -Hyperlipidemia -Hypothyroidism -Osteoarthritis -GERD -Compression fractures Plan -Telemetry floor hold -NPO Friday evening for cardiac cath friday -TRC with Nebs PRN -Avoid Steroids -Supplemental oxygen, goal > 92%, taper as tolerated -Eliquis bridged to Heparin GGT -Tamiflu 30 mg PO BID x 5 days -Start Spiriva 1 puff daily -Continue cardiac meds: Aspirin, Amiodarone, Atorvastatin, Furosemide, Metoprolol -Continue home meds: Allopurinol, Duloxetine, Flovent, Synthroid -Consult with cardiology and pulmonology -Pain control with Acetaminophen and Fentanyl Patch -Bowel regimen with Senna S and Miralax -Heart Healthy diet, NPO Tonight as above -DVT PPx with Heparin -FULL CODE Problem List: 1. Influenza 2. COPD exacerbation Pain Ratin Tomorrow's Labs & Rationales: CBC, BMP, Mg Plan DVT/Prophylaxis: mechanical, pharmacological Code Status: Full Code Ana Ontiveros 11/30/17 1214: Attending MD Review Statement Attending Sign Off Attending Cosign Statement: I have: examined this patient, reviewed [facility] EMR data, personally reviewd images, discussd w/resident/PA/CHIEF CLERK, discussed mgmt plan w/sanjay, discussed mgmt plan w/CM, discussed mgmt plan w/pt. Other Findings: 77 o/f with pmh of CAD S/P stent, Invasive ductal left breast carcinoma status post mastectomy on 03/08/2011, followed by chemotherapy, radiation and anastrazole for lymph node positive disease, with the spine/pelvis metastasis now on radiotherapy and 04/30, HTN, HDL, DM, hypothyroidism, history of atrial fibrillation on a eliqus, Osteoarthritis, GERD, history of compression fractures presented to the [facility] ER with CC of SOB, cough and congestion for past few days. ECHO this admission EF 40% with anteroseptal hypokinesia. ASSESSMENT AND PLAN Patient admitted to [facility] for Acute respiratroy insufficiency from COPD and new onset congestive heart failure 2/2 viral bronchitis and positive influenza and type 2 [place] on this admission, possible had ACS event in recent past. f/u Pulmonary Dr Jean-Baptiste. Cardiology consulted, iv heparin, statin, b rae, lasix 40 cardiac cath plan as per cardiology in am. Guaic+ h/o benign polyps in past with stable h/h. Continue a/c, Cardiology aware. Patient is agreeable for cardiac cath tomorrow. gi/dvt prophyalxis full code.
[2017-11-30 11:26] LABS: PTT > 120 SEC (25-37)
[2017-11-30 16:00] VITALS: BP 112/58
[2017-11-30 18:10] VITALS: BP 100/50
[2017-11-30 18:42] LABS: ABSOLUTE BASOPHIL COUNT 0 /CUMM (0.0-0.2); ABSOLUTE EOSINOPHIL COUNT 0 /CUMM (0.0-0.7); ABSOLUTE GRANULOCYTE CT 5.4 /CUMM (1.4-6.5); ABSOLUTE LYMPH COUNT 0.7 /CUMM (1.2-3.4); ABSOLUTE MONOCYTE COUNT 0.3 /CUMM (0.10-0.60); BASOPHIL % 0.1 % (0.0-2.0); EOSINOPHIL % 0.3 % (0-5); GRANULOCYTE % 85.2 % (42.2-75.2); HEMATOCRIT 26.9 % (37-47); MEAN CORPUSCULAR HGB 25.6 PG (27.0-31.0); MEAN CORPUSCULAR HGB CONC 31.6 G/DL (33.0-37.0); MEAN CORPUSCULAR VOLUME 80.9 FL (81.0-99.0); MEAN PLATELET VOLUME 10.1 FL (7.4-10.4); PLATELET COUNT 183 /CUMM (130-400); RBC DISTRIBUTION WIDTH 17.5 % (11.5-14.5); RED BLOOD CELL CT 3.32 /CUMM (4.20-5.40); WHITE BLOOD CELL COUNT 6.4 /CUMM (4.8-10.8)
[2017-11-30 18:50] LABS: PTT 42 SEC (25-37)
[2017-11-30 21:57] VITALS: BP 106/50
[2017-12-01 02:42] LABS: PTT 88 SEC (25-37)
[2017-12-01 06:00] VITALS: BP 118/64
[2017-12-01] MEDS ORDERED: SPIRIVA18 MCG INH (07:33)
[2017-12-01] MEDS ORDERED: ATORVASTATIN CA80 M1 PO (07:33)
--- NOTE | 2017-12-01 07:36 | Patient Discharge Instructions ---
Discharge Instructions General Discharge Information You were seen/treated for: INFLUENZA DC You had these procedures: 1. You are going to be transferred to [facility] for cardiac catheterization. Watch for these problems: chest pain shortness of breath fever confusion Special Instructions: 1. Follow up with your primary care provider and ladle repairman within 1 week of discharge. 2. Please follow up with supervisor personnel clerks, Dr. Jean-Baptiste within 10 days of discharge 3. Restart your apixaban anticoagulation for atrial fibrillation after your cardiac catheterization. Diet Continue normal diet: No Recommended Diet: Heart Healthy Activity Full Activity/No Limits: No Activity Self Limited: Yes Acute Coronary Syndrome Inclusion Criteria At DC or during hospital stay patient has or had the following: ACS DIAGNOSIS Yes Discharge Core Measures Meds if any: Prescribed or Continued at Discharge Meds if any: NOT Prescribed or Continued at Discharge Congestive Heart Failure Inclusion Criteria At DC or during hospital stay patient has or had the following: CHF DIAGNOSIS No Discharge Core Measures Meds if any: Prescribed or Continued at Discharge Meds if any: NOT Prescribed or Continued at Discharge Cerebrovascular accident Inclusion Criteria At DC or during hospital stay patient has or had the following: CVA/TIA Diagnosis No Discharge Core Measures Meds if any: Prescribed or Continued at Discharge Meds if any: NOT Prescribed or Continued at Discharge Venous thromboembolism Inclusion Criteria VTE Diagnosis No VTE Type NONE VTE Confirmed by (Test) NONE Discharge Core Measures - Per Current guidelines, there needs to be overlap - treatment for the first 5 days of Warfarin therapy. - If discharged on Warfarin prior to 5 days of - overlap therapy, the patient will need to be - assessed for post discharge needs including - *Post discharge parental anticoagulation - *Warfarin and/or parental anticoagulation education - *Follow up date to check INR post discharge At least 5 days overlap therapy as Inpatient Yes Meds if any: Prescribed or Continued at Discharge Note: Overlap Therapy is Warfarin and Anticoagulant Meds if any: NOT Prescribed or Continued at Discharge
[2017-12-01 08:28] LABS: ABSOLUTE BASOPHIL COUNT 0 /CUMM (0.0-0.2); ABSOLUTE EOSINOPHIL COUNT 0.1 /CUMM (0.0-0.7); ABSOLUTE GRANULOCYTE CT 4.7 /CUMM (1.4-6.5); ABSOLUTE MONOCYTE COUNT 0.3 /CUMM (0.10-0.60); BASOPHIL % 0.3 % (0.0-2.0); EOSINOPHIL % 1.1 % (0-5); GRANULOCYTE % 77.4 % (42.2-75.2); HEMATOCRIT 26.8 % (37-47); MEAN CORPUSCULAR HGB 25.5 PG (27.0-31.0); MEAN CORPUSCULAR HGB CONC 31.9 G/DL (33.0-37.0); MEAN PLATELET VOLUME 10.4 FL (7.4-10.4); PLATELET COUNT 187 /CUMM (130-400); RBC DISTRIBUTION WIDTH 17.6 % (11.5-14.5); RED BLOOD CELL CT 3.35 /CUMM (4.20-5.40); WHITE BLOOD CELL COUNT 6.1 /CUMM (4.8-10.8)
--- NOTE | 2017-12-01 08:38 | PN- Housestaff ---
Leo SILVERIO,[facility] 12/01/17 0838: Subjective Follow-up For: COPD Exacerbation Influenza Type A Type 2 AL Complaints: Cough productive of yellowish sputum Tele-Events Since Last Visit: Sodiumsinus bradycardia. Heart rate 57-67 bpm with few PVCs. Subjective: Patient seen and examined. She complains of cough productive of yellowish sputum and some shortness of breath which is actually improved since admission. She denies fevers, chills, chest pain, palpitations, headedness, abdominal pain nausea vomiting. She is scheduled for cardiac catheterization is being transferred this morning. She is currently being treated for influenza and COPD exacerbation and an NSTEMI. Review of Systems Constitutional: Denies: chills, fever, weakness. EENTM: Denies: nasal congestion. Cardiovascular: Denies: chest pain, edema, palpitations, peripheral edema. Respiratory: Reports: cough, short of breath, sputum production. Gastrointestinal: Denies: constipation, nausea, vomiting. Objective Last 24 Hrs of Vital Signs/I&O Vital Signs Date Time Temp Pulse Resp B/P B/P Pulse O2 O2 Flow FiO2 Mean Ox Delivery Rate 12/01 1056 92 Room Air Room Air 12/01 0921 66 118/64 12/01 0920 66 118/64 12/01 0800 93 Room Air Room Air 12/01 0600 97.9 77 20 118/64 93 Room Air 12/01 0000 Room Air 11/30 2157 98.2 64 20 106/50 96 Room Air 11/30 2153 60 106/77 11/30 1810 98.0 60 20 100/50 93 11/30 1600 Room Air 11/30 1600 97.9 77 20 112/58 97 Room Air Intake & Output 12/01 1600 12/01 0800 12/01 0000 Intake Total 96.6 324 480 Output Total Balance 96.6 324 480 Intake, IV 36.6 104 Intake, Oral 60 220 480 Physical Exam General Appearance: Alert, Oriented X3, Cooperative, No Acute Distress Skin: No Rashes, No Breakdown Skin Temp/Moisture Exam: Warm/Dry Sepsis Skin Exam (color): Normal for Ethnicity HEENT: Atraumatic, PERRLA, EOMI, Mucous Membr. moist/pink Neck: Supple, No JVD, No thryomegaly Lymphatic: Cervical nl Cardiovascular: Regular Rate, Normal S1, Normal S2, No Murmurs Lungs: bilateral coarse crepitations in mid to lower lung regions with wheezing. Abdomen: Normal Bowel Sounds, Soft, No Tenderness, No Hepatospenomegaly Neurological: Normal Speech, Strength at 5/5 X4 Ext, Normal Tone, Cranial Nerves 3-12 NL Extremities: No Clubbing, No Cyanosis, No Edema Current Medications: Current Medications Sig/Ck Start time Last Medication Dose Route Stop Time Status Admin Acetaminophen 650 MG Q6P PRN 11/27 1645 DCD 11/30 PO 0935 Acetaminophen 1,000 MG Q6P PRN 11/27 1645 DCD 11/27 IV 2050 Albuterol Sulfate 3 ML Q4P PRN 11/30 1000 DCD 12/01 INH 1051 Allopurinol 300 MG DAILY 11/28 1000 DCD 12/01 PO 0920 Amiodarone HCl 100 MG DAILY 11/27 1528 DCD 12/01 PO 0921 Aspirin Buffered 81 MG QAM 11/28 1000 DCD 12/01 PO 0920 Atorvastatin Calcium 80 MG 1700 11/28 1700 DCD 11/30 PO 1636 Calcium Carbonate 1,500 MG DAILY 11/28 1000 DCD 12/01 PO 0920 Cholecalciferol 1,000 IU DAILY 11/28 1000 DCD 12/01 PO 0920 Cyanocobalamin 1,000 MCG DAILY 11/28 1000 DCD 12/01 PO 0920 Duloxetine HCl 60 MG DAILY 11/27 1531 DCD 12/01 PO 0919 Fentanyl Citrate 75 MCG Q72H 11/29 1615 DCD 11/29 TOP 1700 Fish Oil 1,050 MG DAILY 11/28 1000 DCD 12/01 PO 0919 Fluticasone 2 PUF BID 11/28 1321 DCD 12/01 Propionate INH 0921 Furosemide 40 MG QAM 11/27 1533 DCD 12/01 PO 0920 Heparin Sodium 3,374 UNIT ONE ONE 11/30 2030 DC 11/30 (Porcine) IV 11/30 Heparin Sodium/ 25,000 UNIT Q24H 11/28 1900 DC 11/30 Dextrose IV 0628 Dextrose/Water 500 ML Ipratropium [place] 2.5 ML Q4P PRN 11/30 1000 DCD 12/01 INH 1052 Levothyroxine Sodium 0.125 MG DAILY 11/28 1000 DCD 12/01 PO 0920 Magnesium Oxide 400 MG BID 11/27 1530 DCD 12/01 PO 0920 Metoprolol Tartrate 25 MG BID 11/27 1534 DCD 12/01 PO 0920 Oseltamivir Phosphate 30 MG BID 11/28 1018 DCD 12/01 PO 12/02 1017 0919 Polyethylene Glycol 17 GM AT BEDTIME PRN 11/27 1645 DCD 11/29 PO 1700 Senna/Docusate Sodium 1 TAB AT BEDTIME PRN 11/27 1645 DCD 11/30 PO 0938 Tiotropium [place] 1 PUF DAILY 11/30 1023 DCD 12/01 INH 0918 Last 24 Hrs of Lab/Anthony Results Last 24 Hrs of Labs/Mics: Laboratory Tests 12/01/17 0903: APTT 47 H 12/01/17 0634: Anion Gap 7, Estimated GFR > 60, BUN/Creatinine Ratio 17.8, Magnesium 2.1, CBC w Diff NO MAN DIFF REQ, RBC 3.35 L, MCV 80.0 L, MCH 25.5 L, MCHC 31.9 L, RDW 17.6 H, MPV 10.4, Gran % 77.4 H, Lymphocytes % 16.9 L, Monocytes % 4.3, Eosinophils % 1.1, Basophils % 0.3, Absolute Granulocytes 4.7, Absolute Lymphocytes 1.0 L, Absolute Monocytes 0.3, Absolute Eosinophils 0.1, Absolute Basophils 0 12/01/17 0215: APTT 88 H 11/30/17 1744: APTT 42 H, CBC w Diff NO MAN DIFF REQ, RBC 3.32 L, MCV 80.9 L, MCH 25.6 L, MCHC 31.6 L, RDW 17.5 H, MPV 10.1, Gran % 85.2 H, Lymphocytes % 10.5 L, Monocytes % 3.9, Eosinophils % 0.3, Basophils % 0.1, Absolute Granulocytes 5.4, Absolute Lymphocytes 0.7 L, Absolute Monocytes 0.3, Absolute Eosinophils 0, Absolute Basophils 0 Assessment/Plan Assessment: Ms. Lentz is a 73 year F with PMH of CAD S/P stent, Invasive ductal left breast carcinoma status post mastectomy on 03/08/2011, followed by chemotherapy, radiation and anastrazole for lymph node positive disease, with the spine/pelvis metastasis now on radiotherapy and 04/30, HTN, HDL, DM, hypothyroidism, history of atrial fibrillation on a eliqus, Osteoarthritis, GERD, history of compression fractures presented to the [facility] ER with worsening shortness of breath and nonproductive cough for the past 2 weeks, and progressively getting worse, since patient ran out of all of her inhalers and nebulizer medications a few weeks ago. She called her bean picker Dr. Jean-Baptiste who advised that she come to the ER. Of note, patient had a "jaw infection" who was given augmentin x 6 weeks prior this admission. She was tested positive for flu. She was being treated for acute exacerbation of COPD and influenza. However, patient had positive troponins and EKG changes showing new precordial Q waves is being planned for transfer to [facility] for a cardiac catheterization this morning. 1. Acute COPD exacerbation with influenza A * Continue supplemental O2 as needed * Continue nebulizer therapy with ipratropium and albuterol for wheezing * Continue Flovent 2 puff bid * Avoid systemic steroids * Continue Tamiflu 30 mg twice a day for another 2 days (renal adjustment) * Blood cultures no growth so far * Sputum cultures growing SERRATIA MARCESCENS, Urine strep and Legionella negative * Repeat chest does not show any evidence of consolidation. * Monitor fever and WBC curve expect a bump in WBC curve secondary to steroids Of note patient was leukopenic (immunosuppressed) secondary to chemotherapy but WBC has trended up on admission and is now normal at 6100/uL 2. Myocardial infarction anteroseptal of unknown duration probably weeks and demand ischemia Patient was initially transferred from general medicine floor to ICU as telemetry floor for elevation in troponins with ST depression in V1 and V2 likely secondary to demand ischemia in setting of influenza. There are also deep Q waves in inferior leads of suggestive of a myocardial infarction of unknown duration probably few weeks as per cardiology Dr.Avi Montilla * Troponins trending down * Echocardiogram Moderate to severe anteroseptal hypokinesis. Mildly abnormal left ventricular ejection fraction estimated at 40- 45% * Continue aspirin, beta rae and increased dose of Lipitor 80 mg as per cardiology recommendations * Pt was started on IV heparin drip and she is guaiac-positive. Her hemoglobin and hematocrit remained stable this morning at 8.5 G/DL and 33.8%. We'll discontinue IV heparin drip in anticipation of cardiac catheterization. After cardiac catheterization patient is to restart home medication of apixaban, * Plan to transfer her to [facility] for cardiac catheterization today 3. Hypokalemia * Potassium was 3.7 this morning. Will replete with by mouth potassium 4. Chronic conditions including CAD, Left Breast CA w/ spine/pelvis metastasis, HTN, HDL, DM, hypothyroidism, A-fib on eliqus, Osteoarthritis, GERD * Continue home meds including Synthroids, B12/[place]-3/V-D/MgOx, Tums, Aspirin 81, Allopurinol 300mg qd, * Hold Eliquis 5mg BID and restart only after cardiac catheterization * Continue Amiodarone 100 mg qd, Metoprolol 25mg BID, Lasix 40mg qd, Cymbalta 60mg qd, Fentanyl Patch DVT prophylaxis ALPS Diet: *Patient will be nothing by mouth on Friday night for anticipated catheterization today. Patient can be on Heart Healthy Diet after cardiac catheterization CODE STATUS: Full Code Problem List: 1. Non-ST elevation myocardial infarction (NSTEMI) 2. Influenza 3. COPD exacerbation Pain Ratin Pain Location: None Pain Goal: Remain pain free Pain Plan: Tylenol as needed Tomorrow's Labs & Rationales: None needed. Patient is being transferred Consulting Request: Consulting Specialty: Pulmonary Disease Maxine Vincent MD 12/01/17 1217: Attending MD Review Statement Attending Statement Attending MD Statement: examined this patient, discuss w/resident/PA/CASING PULLER, agreed w/resident/PA/CASING PULLER, reviewed EMR data (avail), discussed with nursing, discussed with case mgmt, reviewed images Attending Assessment/Plan: 77-year-old female multiple medical problems including hypertension, diabetes, COPD, metastatic breast CA who is here with acute influenza, COPD exacerbation and non-STEMI. Patient finished 3 days of the Tamiflu and has 2 more days left. She was completely anticoagulated on Eliquis on admission and has chronic stable anemia. She was started on heparin for the NSTEMI and because of the EKG changes and wall motion abnormalities on the echo, she's leaving today for a cardiac cath as per cardiology. She is nothing by mouth and the heparin has been stopped now per cardiology and follow-up will be after the cath results.
[2017-12-01] MEDS ORDERED: HEPARIN-1/25000 UNI1 IV (09:06)
[2017-12-01] MEDS ORDERED: TAMIFLU30 M1 PO (09:11)
[2017-12-01 09:21] VITALS: BP 118/64
[2017-12-01 09:45] LABS: PTT 47 SEC (25-37)
== END 2017-12-01 11:40 | disposition short-term general hospital (02) | DRG 280 ==
LOC: ERH 12:08 → 1NO 13:46 → CRI 13:46 → ERHI 13:46 → ENRESERV 17:32 → ENTRNSPT 18:11 → EDTRNSPTSTS 18:33 → EDTRNSPT 18:33 → ERHI 18:48 → CRI 18:48 → 2NA 18:48 → CMPTRNSPT 19:15 → CRI 23:58 → 1NO 11-30 18:22 → ENPENDDIS 12-01 09:55 → 1NO 12-01 11:40
PROVIDERS: Dermatology; Internal Medicine; Internal Medicine Interventional Cardiology; Physician Assistant Medical; Student in an Organized Health Care Education/Training Program
DX: I21.4 Non-ST elevation (NSTEMI) myocardial infarction (principal); J10.00 Influenza due to other identified influenza virus with unspecified type of pneumonia; I11.0 Hypertensive heart disease with heart failure; C79.51 Secondary malignant neoplasm of bone; I48.0 Paroxysmal atrial fibrillation; I50.32 Chronic diastolic (congestive) heart failure; I27.29 Other secondary pulmonary hypertension; J44.1 Chronic obstructive pulmonary disease with (acute) exacerbation; Z79.01 Long term (current) use of anticoagulants; I25.10 Atherosclerotic heart disease of native coronary artery without angina pectoris; Z95.5 Presence of coronary angioplasty implant and graft; E87.6 Hypokalemia; Z85.3 Personal history of malignant neoplasm of breast; Z92.21 Personal history of antineoplastic chemotherapy; Z92.3 Personal history of irradiation; E11.9 Type 2 diabetes mellitus without complications; E78.5 Hyperlipidemia, unspecified; E03.9 Hypothyroidism, unspecified; M19.90 Unspecified osteoarthritis, unspecified site; K21.9 Gastro-esophageal reflux disease without esophagitis; G89.4 Chronic pain syndrome
CPT/HCPCS: 1NP; CCU; 36415; 36592; 71045; 82436; 87040; 87070; 87071; 87449; 87450; 87804; 87804-59; 93005; 93010; 93306; J0131; J1644; J2920; J2930; J3490; J7060

== ENCOUNTER 2018-01-30 20:24 | Inpatient (IN) | payer OTHER, MEDICARE ==
[~2018-01-30] VITALS: Ht 154.9 cm; Wt 59.2 kg
[~2018-01-30 20:24] MED LIST changes: +ATORVASTATIN CA80 M1 PO; +HEPARIN-1/25000 UNI1 IV; +SPIRIVA18 MCG INH; +TAMIFLU30 M1 PO
--- NOTE | 2018-01-30 20:45 | ED GENERAL ADULT ---
See Addendum History of Present Illness General Chief Complaint: General Adult Stated Complaint: PT HAS BLOOD IN THE TOILET Source: patient, family Exam Limitations: no limitations Vital Signs & Intake/Output Vital Signs & Intake/Output Vital Signs Date Time Temp Pulse Resp B/P B/P Pulse O2 O2 Flow FiO2 Mean Ox Delivery Rate 01/30 2225 78 18 120/68 98 Room Air 01/30 2038 98.7 80 18 130/69 96 Room Air Allergies Coded Allergies: NO KNOWN ALLERGIES (NKDA) (06/12/13) Reconcile Medications Albuterol Sulfate (Proair Hfa) 90 MCG HFA.AER.AD 2 PUF INH Q4-6 PRN PRN SOB ( Reported) Allopurinol 300 MG TABLET 1 TAB PO DAILY GOUT (Reported) Amiodarone HCl 100 MG TABLET 1 TAB PO DAILY AFIB (Reported) Apixaban (Eliquis) 5 MG TABLET 1 TAB PO BID THINNER (Reported) Aspirin (Ecotrin*) 81 MG TABLET.DR 1 TAB PO QAM HEART/BLOOD (Reported) Atorvastatin Calcium 80 MG TABLET 1 TAB PO 1700 CHOLESTEROL Calcium Carbonate (Calcium) 500 MG TABLET 1,500 MG PO DAILY SUPPLEMENT ( Reported) Cholecalciferol (Vitamin D3) (Vitamin D3) 1,000 UNIT CAPSULE 1 CAP PO QAM SUPPLEMENT (Reported) Cyanocobalamin (Vitamin B-12) 1,000 MCG TABLET 1 TAB PO DAILY SUPPLEMENT ( Reported) Duloxetine HCl 30 MG CAPSULE.DR 2 TAB PO DAILY DEPRESSION/NERVE PAIN ( Reported) SWITCHED FROM 3 PILLS (90MG) TO 2 PILLS (60MG) DAILY Fentanyl 75 MCG/HOUR PATCH.TD72 1 PAT TOP Q3D PAIN (Reported) Fulvestrant (Faslodex) 250 MG/5 ML SYRINGE BREAST CANCER (Reported) Furosemide 40 MG TABLET 1 TAB PO QAM DIURETIC (Reported) Levothyroxine Sodium (Synthroid) 125 MCG TABLET 1 TAB PO DAILY HYPOTHYROID ( Reported) Losartan Potassium 50 MG TABLET 1 TAB PO DAILY HTN (Reported) Magnesium Oxide 400 MG TABLET 1 TAB PO BID SUPPLEMENT (Reported) Metoprolol Tartrate 25 MG TABLET 1 TAB PO BID HEART/BP (Reported) Morphine Sulfate 30 MG TABLET 1 TAB PO 4 TIMES/DAY PAIN (Reported) [place]-3/Dha/Epa/Fish Oil (Fish Oil 1,000 MG Softgel) 1 EACH CAPSULE 1 CAP PO DAILY SUPPLEMENT (Reported) Potassium Chloride 10 MEQ TABLET.ER 2 TAB PO QPM SUPPLEMENT (Reported) Tiotropium [place] (Spiriva) 18 MCG CAP.W.DEV 1 PUF INH DAILY SOB Tramadol HCl 50 MG TABLET 1 TAB PO TIDPRN PAIN (Reported) Triage Note: RECEIVED 77 YO FEMALE C/O BRIGHT RED BLEEDING PER RECTUM WITH CLOTS. PT REPORTS IT STARTED FRIDAY. PT NOT 100% SURE IT IS COMING FROM RECTUM. PT REPORTS INTERMITTENT LIGHTHEADED. PT REPORTS CHRONIC SOB, WORSE IN THE LAST WEEK. NO C/O CP Triage Nurses Notes Reviewed? yes Onset: Abrupt Duration: day(s): Timing: recent history HPI: 01/30/18 9:50 PM 77-year-old female presents to the emergency department complaining of rectal bleeding. The patient states that she's had rectal bleeding over the past 4 days. She says it's like water with blood. She also admits to mild abdominal discomfort. She denies vomiting or fever. She is currently on Eliquis. Past History Travel History Traveled to [place] past 21 day No Medical History Any Pertinent Medical History? see below for history Neurological: ALZHEIMERS? qUESTION EENT: NONE Cardiovascular: AFIB, hypertension, hyperlipidemia Respiratory: COPD Gastrointestinal: GERD Hepatic: NONE Renal: NONE Musculoskeletal: COMPRESSION FRACTURES OA Psychiatric: NONE Endocrine: diabetes, HYPOTHYROID Blood Disorders: NONE Cancer(s): breast cancer (WITH METS), WITH METASTISIS EVP OPERATIONS/Reproductive: NONE History of MRSA: No History of VRE: No History of CDIFF: No Influenza Vaccine: 11/20/17 Surgical History Surgical History: LEFT MASTECTOMY Psychosocial History Who do you live with Spouse Services at Home None What is your primary language Nigerian Tobacco Use: Quit >30 days ago Family History Family History, If Any: Relation not specified for: *No pertinent family history Hx Contributory? No Review of Systems Review of Systems Constitutional: Denies: fever. EENTM: Reports: no symptoms. Respiratory: Denies: short of breath. Cardiovascular: Denies: chest pain. GI: Reports: abdominal pain. Genitourinary: Reports: no symptoms. Musculoskeletal: Reports: no symptoms. Skin: Reports: no symptoms. Neurological/Psychological: Reports: no symptoms. Hematologic/Endocrine: Reports: no symptoms. Immunologic/Allergic: Reports: no symptoms. Physical Exam Physical Exam General Appearance: alert, awake, anxious, mild distress Head: atraumatic, normal appearance Eyes: Bilateral: normal appearance, PERRL, EOMI. Ears, Nose, Throat: normal pharynx, normal ENT inspection Neck: normal inspection Respiratory: normal breath sounds, chest non-tender, no respiratory distress Cardiovascular: irregularly irregular Peripheral Pulses: 3+ radial (R), 3+ radial (L) Gastrointestinal: soft, non-tender Rectal: hemorrhoids, guaiac + Back: decreased range of motion Extremities: pedal edema Neurologic/Psych: no motor/sensory deficits, awake, alert, oriented x 3 Skin: pallor Core Measures ACS in differential dx? No CVA/TIA Diagnosis: No Sepsis Present: No Sepsis Focused Exam Completed? No Progress Differential Diagnoses I considered the following diagnoses in my evaluation of the patient: [ Diverticulosis, diverticulitis, thrombosed external hemorrhoid, internal hemorrhoid, coagulopathy] Plan of Care: Orders Procedure Date/time Status Add-on Test (ER Only) 01/30 2114 Active EKG 01/30 2114 Active TROPONIN LEVEL 01/30 2100 Complete TYPE & SCREEN (NOT X-MATCH) 01/30 2100 Complete URINALYSIS 01/30 2055 Active PROTHROMBIN TIME 01/30 2055 Complete LACTIC ACID 01/30 2055 Complete COMPREHENSIVE METABOLIC PANEL 01/30 2055 Complete CBC WITHOUT DIFFERENTIAL 01/30 2055 Complete Current Medications Sig/Ck Start time Last Medication Dose Stop Time Status Admin Sodium Chloride 1,000 ML ONCE ONE 01/30 2115 AC 01/30 (Normal Saline 0.9%) 01/31 0354 2235 Laboratory Tests 01/30/182099: Anion Gap 5, Estimated GFR > 60, BUN/Creatinine Ratio 14.4, Glucose 128 H, Lactic Acid 1.3, Calcium 8.3 L, Total Bilirubin 0.4, AST 28, ALT 27, Alkaline Phosphatase 148 H, Troponin I 0.03, Total Protein 5.3 L, Albumin 3.0 L, Globulin 2.3, Albumin/Globulin Ratio 1.3, PT 15.6 H, INR 1.43 H, CBC w Diff NO MAN DIFF REQ, RBC 3.27 L, MCV 80.9 L, MCH 24.5 L, MCHC 30.3 L, RDW 21.8 H, MPV 8.5, Gran % 63.3, Lymphocytes % 23.6, Monocytes % 9.2, Eosinophils % 3.4, Basophils % 0.5, Absolute Granulocytes 5.2, Absolute Lymphocytes 2.0, Absolute Monocytes 0.8 H, Absolute Eosinophils 0.3, Absolute Basophils 0 Initial ED EKG: AFIB, nonspecific ST T wave chg Prior EKG: changed Departure Departure Disposition: STILL A PATIENT Condition: Stable Clinical Impression Primary Impression: Rectal bleeding Referrals: Asaf SILVERIO,Karen (PCP/Family) Departure Forms: Customer Survey General Discharge Information Admission Note Spoke With: Chase Disla MD Documentation of Exam: Documentation of any treatments & extenuating circumstances including Concerns Regarding Discharge (functional status, medication knowledge or non-compliance, living conditions, etc.) that warrant an admission rather than observation: [The patient needs admission for serial hemoglobin and hematocrit, GI consultation, hemodynamic monitoring] Critical Care Note Critical Care Note Critical Care Time: non-applicable
[2018-01-30] MEDS ORDERED: ELIQUIS5 M1 PO (21:09)
[2018-01-30] MEDS ORDERED: TRAMADOL HCL50 M1 PO (21:09)
[2018-01-30] MEDS ORDERED: LOSARTAN POTASS50 M1 PO (21:09)
[2018-01-30] MEDS ORDERED: PROAIR HFA8.5 GM INH (21:10)
[2018-01-30 21:14] LABS: ABSOLUTE BASOPHIL COUNT 0 /CUMM (0.0-0.2); ABSOLUTE EOSINOPHIL COUNT 0.3 /CUMM (0.0-0.7); ABSOLUTE GRANULOCYTE CT 5.2 /CUMM (1.4-6.5); ABSOLUTE MONOCYTE COUNT 0.8 /CUMM (0.10-0.60); BASOPHIL % 0.5 % (0.0-2.0); EOSINOPHIL % 3.4 % (0-5); GRANULOCYTE % 63.3 % (42.2-75.2); HEMATOCRIT 26.5 % (37-47); MEAN CORPUSCULAR HGB 24.5 PG (27.0-31.0); MEAN CORPUSCULAR HGB CONC 30.3 G/DL (33.0-37.0); MEAN CORPUSCULAR VOLUME 80.9 FL (81.0-99.0); MEAN PLATELET VOLUME 8.5 FL (7.4-10.4); PLATELET COUNT 307 /CUMM (130-400); RBC DISTRIBUTION WIDTH 21.8 % (11.5-14.5); RED BLOOD CELL CT 3.27 /CUMM (4.20-5.40); WHITE BLOOD CELL COUNT 8.3 /CUMM (4.8-10.8)
[2018-01-30 21:21] LABS: PT 15.6 SEC (9.4-12.5)
--- NOTE | 2018-01-30 22:50 | CT SCAN REPORT ---
EXAMINATION: CT ABDOMEN AND PELVIS WITH CONTRAST CLINICAL INFORMATION: Rectal bleeding. Abdominal pain. COMPARISON: PET/CT exam 04/23/2016 . CTA chest 05/07/2016 TECHNIQUE: Multidetector volumetric imaging was performed of the abdomen and pelvis following IV administration of 95 mL of Optiray 320 intravenous contrast. Sagittal and coronal reformatted images were obtained on the technologist's workstation. DLP: 242.23 mGy-cm FINDINGS: LUNG BASES: The visualized lung bases are unremarkable. LIVER, GALLBLADDER, AND BILIARY TREE: The liver is normal in size, shape, and attenuation. No focal hepatic lesion or biliary ductal dilatation is present. The gallbladder is unremarkable with no evidence of radiopaque gallstones, gallbladder wall thickening, or obvious pericholecystic inflammatory changes. PANCREAS: The pancreas is atrophic. No inflammation. No pancreatic mass or pancreatic duct dilatation. SPLEEN: Unremarkable. ADRENAL GLANDS: Unremarkable. KIDNEYS AND URETERS: The kidneys are normal in size, shape, and attenuation. No hydronephrosis, hydroureter, or calculi seen. No perinephric stranding. BLADDER: Unremarkable. GASTROINTESTINAL TRACT: There is a diverticulum at the cardia of the stomach in the left upper quadrant measuring 2 cm. There is significant diffuse thickening of the bowel wall involving the sigmoid to rectum with surrounding edema. Findings consistent with colitis. The sigmoid colon is redundant, the sigmoid loops to the right side of the abdomen. The remainder of the bowel wall the colon is normal. There is a large volume of stool in the colon from the cecum through the descending colon. Very little stool is present in the area of the colitis of the sigmoid colon. The appendix is not seen. The small bowel loops are unremarkable. MESENTERY: There is free fluid in the pelvis surrounding the sigmoid bowel loops from the colitis. No free air. No abscess. ABDOMINAL WALL: There is mild generalized anasarca. LYMPH NODES: Normal. VASCULAR: There is extensive atherosclerotic vascular wall calcification of aorta and iliac vessels without aneurysm. There is a prominent left-sided gonadal vein. PELVIC VISCERA: The uterus is anteverted. No adnexal abnormality. OSSEOUS STRUCTURES: Degenerative spondylosis of spine. There is multilevel compression deformities of the lumbar and thoracic vertebrae this is unchanged since the MR study of 06/19/2017. Old healed fracture with residual deformity of the left symphysis pubis. There is vertebroplasty of the sacrum. IMPRESSION: Significant diffuse colitis of the sigmoid and rectum. No air in the bowel wall. There is some fluid in the pelvis related to the colitis. No abscess. There is a large volume of stool in the right colon which is not inflamed.
--- NOTE | 2018-01-31 00:37 | History & Physical ---
Neli SILVERIO,[facility] 01/31/18 0036: General Information and HPI MD Statement: I have seen and personally examined LINDA APODACA and documented this H&P. The patient is a 78 year old F who presented with a patient stated chief complaint of [BRBPR]. Source of Information: patient, family, old records Exam Limitations: dementia, poor historian History of Present Illness: 73 year old female with PMH of CAD S/P bare metal stent to the RCA in 2007, Invasive ductal left breast carcinoma s/p mastectomy on 2010, followed by chemotherapy, radiation and anastrazole for lymph node positive disease, HTN, HDL, DM, hypothyroidism, A.fib on eliqus, osteoarthritis, GERD, chronic pain syndrome and history of compression fractures presented to the [facility] ER with GI bleed. The patient is demented but was able to provide some history, we also got some history from ED providers who spoke to the . The patient's symptoms started a week ago as intermittent watery diarrhea mixed with bright red blood and clots. Last episode was yesterday. She continued taking aspirin and the liquids through the past week. She denies any similar episode in the past. She reports mild nausea but denies vomiting or abdominal pain. She denies dizziness , palpitation, or chest discomfort. Allergies/Medications Allergies: Coded Allergies: NO KNOWN ALLERGIES (NKDA) (06/12/13) Home Med list Albuterol Sulfate (Proair Hfa) 90 MCG HFA.AER.AD 2 PUF INH Q4-6 PRN PRN SOB ( Reported) Allopurinol 300 MG TABLET 1 TAB PO DAILY GOUT (Reported) Amiodarone HCl 100 MG TABLET 1 TAB PO DAILY AFIB (Reported) Apixaban (Eliquis) 5 MG TABLET 1 TAB PO BID THINNER (Reported) Aspirin (Ecotrin*) 81 MG TABLET.DR 1 TAB PO QAM HEART/BLOOD (Reported) Atorvastatin Calcium 80 MG TABLET 1 TAB PO 1700 CHOLESTEROL Calcium Carbonate (Calcium) 500 MG TABLET 1,500 MG PO DAILY SUPPLEMENT ( Reported) Cholecalciferol (Vitamin D3) (Vitamin D3) 1,000 UNIT CAPSULE 1 CAP PO QAM SUPPLEMENT (Reported) Cyanocobalamin (Vitamin B-12) 1,000 MCG TABLET 1 TAB PO DAILY SUPPLEMENT ( Reported) Duloxetine HCl 30 MG CAPSULE.DR 2 TAB PO DAILY DEPRESSION/NERVE PAIN ( Reported) SWITCHED FROM 3 PILLS (90MG) TO 2 PILLS (60MG) DAILY Fentanyl 75 MCG/HOUR PATCH.TD72 1 PAT TOP Q3D PAIN (Reported) Fulvestrant (Faslodex) 250 MG/5 ML SYRINGE BREAST CANCER (Reported) Furosemide 40 MG TABLET 1 TAB PO QAM DIURETIC (Reported) Levothyroxine Sodium (Synthroid) 125 MCG TABLET 1 TAB PO DAILY HYPOTHYROID ( Reported) Losartan Potassium 50 MG TABLET 1 TAB PO DAILY HTN (Reported) Magnesium Oxide 400 MG TABLET 1 TAB PO BID SUPPLEMENT (Reported) Metoprolol Tartrate 25 MG TABLET 1 TAB PO BID HEART/BP (Reported) Morphine Sulfate 30 MG TABLET 1 TAB PO 4 TIMES/DAY PAIN (Reported) [place]-3/Dha/Epa/Fish Oil (Fish Oil 1,000 MG Softgel) 1 EACH CAPSULE 1 CAP PO DAILY SUPPLEMENT (Reported) Potassium Chloride 10 MEQ TABLET.ER 2 TAB PO QPM SUPPLEMENT (Reported) Tiotropium [place] (Spiriva) 18 MCG CAP.W.DEV 1 PUF INH DAILY SOB Tramadol HCl 50 MG TABLET 1 TAB PO TIDPRN PAIN (Reported) Past History Travel History Traveled to [place] past 21 day No Medical History Neurological: ALZHEIMERS? 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 EENTM: Reports: double vision (chronic). Denies: blurred vision, visual changes, hearing changes. Cardiovascular: Reports: peripheral edema. Denies: chest pain, orthopena, palpitations, syncope. Respiratory: Denies: cough, short of breath. GI: Reports: diarrhea, nausea, bloody stool. Denies: abdominal pain, bloating, constipation, distention, melena, vomiting. Genitourinary: Denies: dysuria, hematuria. Skin: Denies: rash. Exam & Diagnostic Data Last 24 Hrs of Vital Signs/I&O Vital Signs Date Time Temp Pulse Resp B/P B/P Pulse O2 O2 Flow FiO2 Mean Ox Delivery Rate 01/31 0000 98.5 71 20 156/66 96 Room Air 01/30 2225 78 18 120/68 98 Room Air 01/30 2038 98.7 80 18 130/69 96 Room Air Intake & Output 01/31 0800 01/31 0000 01/30 1600 Intake Total Output Total Balance Patient 57.606 kg Weight Weight Estimated Measurement Method Physical Exam General Appearance Alert, Cooperative, No Acute Distress Skin right LE erythema from chonic venous stasis HEENT Atraumatic, PERRLA, EOMI, Mucous Membr. moist/pink Neck No JVD Cardiovascular Regular Rate, Normal S1, Normal S2, 2/6 early systolic murmur , PMI not grossly displaced Lungs Clear to Auscultation, Normal Air Movement Abdomen mild umbilical and LLQ tenderness Neurological Normal Speech Extremities +2 bilateral LE edema extend beyond knees. Right lower extermity tenderness and erythema mostly 2/2 chronic venous stasis Last 24 Hrs of Labs/Anthony: Laboratory Tests 01/30/18 2355: Lactic Acid Cancelled 01/30/18 2100: Anion Gap 5, Estimated GFR > 60, BUN/Creatinine Ratio 14.4, Glucose 128 H, Lactic Acid 1.3, Calcium 8.3 L, Total Bilirubin 0.4, AST 28, ALT 27, Alkaline Phosphatase 148 H, Troponin I 0.03, Total Protein 5.3 L, Albumin 3.0 L, Globulin 2.3, Albumin/Globulin Ratio 1.3, PT 15.6 H, INR 1.43 H, CBC w Diff NO MAN DIFF REQ, RBC 3.27 L, MCV 80.9 L, MCH 24.5 L, MCHC 30.3 L, RDW 21.8 H, MPV 8.5, Gran % 63.3, Lymphocytes % 23.6, Monocytes % 9.2, Eosinophils % 3.4, Basophils % 0.5, Absolute Granulocytes 5.2, Absolute Lymphocytes 2.0, Absolute Monocytes 0.8 H, Absolute Eosinophils 0.3, Absolute Basophils 0 Diagnostic Data EKG Results subobtimal EKG but regular rythem Assessment/Plan Assessment: 78-year-old female with multiple comorbidities including but not limited to A. fib on the liquids and history of left breast cancer status post mastectomy who presented with 1 week of watery diarrhea mixed with bright red blood. Abdomen CT was significant for diffuse colitis of the sigmoid and rectum, which possibly a side effect of GI bleed while on blood thinner and aspirin. She is hemodynamically stable and denies melena which makes upper GI bleed unlikely. She denies the use of NSAIDs but she is on aspirin. Bone scan that was done 4 days ago showed multiple sites concerning for metastasis, the patient is following with Dr. Saldivar, he will be informed about the admission as she has appointment with him next week. Plan #BRBBR while on the liquids and aspirin * We will admit to general medicine floor * We will hold liquids and aspirin * We will hold Lasix and losartan * We will start gentle hydration with IV normal saline (40% EF 2 months ago) * Repeat CBCs in the morning with hemoglobin goal of 8 (Hx CAD s/p stent) * Clear liquid diet * GI consult #Hx of left invasive ductal carcinoma s/p mastectomy(2010) and current possible mets * We will inform hem/onc about admission #History of lower extremity edema/venous insufficiencyLE edema * hx of cancer and LE edema with right>left and associated right LE tenderness * The pt is was on liquis, however DVT with eliquis fail is possible * We will hold ALPS until B/L LE DVT ruled out by Doppler venous #Diastolic dysfunction with pulm HTN and CAD with bare metal stent to the RCA in 2007 * We'll hold ASA and lasix * Continue metoprolol * We will restart Lasix in the morning if no further episodes of bleeding # Paroxysmal A.fib on Eliquis and amiodarone, currently in sinus rhythm * Continue metoprolol and amlodipine * Hold the eliquis # Hypertension/hyperlipidemia/diabetes/hypothyroidism/COPD * Hold losartan * Continue statin * Finger stick glucose check * Low NovoLog SS * Continue levothyroxin #Chronic pain syndrome and history of compression fractures * Continue fentanyl patch 75 mg every 3 days * Continue tramadol 50 mg 3 times a day when necessary -Full code -DVT PPx: no pharmacological given GI bleed, no ALPs until DVT r/o in am -clear liquid diet As Ranked By This Provider Problem List: 1. Rectal bleeding Core Measures/Misc (06/29) Acute Coronary Syndrome ACS Diagnosis: No Congestive Heart Failure Congestive Heart Failure Diagnosis No Cerebrovascular Accident CVA/TIA Diagnosis: No VTE (View Protocol) VTE Risk Factors Age>40 No Mechanical VTE Prophylaxis d/t Medical Contraindication (possible DVT) No VTE Pharm Prophylaxis d/t Medical Contraindication (GI bleed) Sepsis (View protocol) Sepsis Present: No Naif SILVERIO, [facility] 01/31/18 0500: Attending MD Review Statement Attending Statement Attending MD Statement: examined this patient, discuss w/resident/PA/BUTTONHOLER, agreed w/resident/PA/BUTTONHOLER, reviewed images, amended to note Attending Assessment/Plan: 78 yo F with h/o CAD s/p RCA stent, COPD, HfrEF, paroxysmal Afib on eliquis, left breast carcinoma s/p mastectomy (2010), with spinal/ pelvic mets was on palliative radiation now on faslodex hormonal therapy, HTN, T2DM, hypothyroidism , was recently admitted to [facility] (Nov 2017) was acute ID and was transferred to [facility] for cardiac cath, presents to the ER today for rectal bleeding that is ongoing for the past 1 week. Patient is a limited historian and is unable to give specifics. Her was not at bedside. I am not sure if she had stents placed during her most recent cardiac cath at [place]. She has been having intermittent episodes of bright red blood per rectum associated with ?small clots. Patient reports constipation and states it is hard to have a bowel movement. She denies abdominal pain or cramping associated with the bleeding. She reports lightheadedness but no LOC. She denies melena, heartburn or hematemesis. Colonoscopy (2014): multiple polyps, pandiverticulosis coli; pathology suggestive of tubular adenoma. Patient reports right arm and back pain, she underwent Bone scan on January 26- results of which suggest mandibular lesion ?metastasis or osteomyelitis, multiple compression fractures, new metastatic rib lesions and lesions to right shoulder ?arthritic or metastatic disease. Patient is supposed to follow up with Dr. Henson next week to get the results. We have not informed her about the results. Vitals stable. Exam: awake alert oriented, no distress, pallor+, mucosa dry, Chest clear, Heart S1S2 regular, Abd soft, tenderness in right lower quadrant and periumbilical region, LE: b/l 2+ pedal edema, with chronic venous stasis changes on left leg more prominent that right leg. Rectal: guaiac positive, hemorrhoids+. Labs: H/H 8.0/26.5 (baseline 8-), microcytic anemia, INR 1.43, Na 135, bicarb 32, glucose 128, lactic acid 1.3, trop neg. CT abd/pelvis: significant diffuse colitis of sigmoid and rectum. No air in the bowel wall. EKG: being read as Afib however appears Sinus rhythm with baseline artifact. Echo (2018): EF 40%, with severe anteroseptal hypokinesis, mild to moderate MR, pulmonary hypertension. Assessment and plan: 1. Lower GI bleeding 2. Acute rectosigmoid colitis ?ischemic colitis, less likely infectious colitis 3. Acute on chronic blood loss anemia 4. History of Afib on Eliquis 5. History of CAD s/p stent on aspirin 6. Metastatic breast cancer s/p palliative radiation, now on hormonal therapy 7. Chronic pain syndrome - Admit to General medicine - Check orthostats - Type and crossmatch - Transfuse if Hb < 8.0 - Monitor for bleeding - Clear liquid diet - Gentle IV hydration, watch for fluid overload - Holding off antibiotics at this point - Hold aspirin and eliquis - Recheck CBC Q12 - GI consult - Serial EKG and troponin to rule out ACS - Obtain records from [facility] about most recent cardiac cath results - Continue amiodarone and metoprolol - Hold lasix and losartan - Inform Dr. Henson about patient's admission - LE doppler to rule out DVT although seems less likely as patient is anticoagulated with eliquis - Continue tramadol and fentanyl patch for pain DVT ppx Alps. Full code.
[2018-01-31 01:46] VITALS: BP 138/67
--- NOTE | 2018-01-31 05:00 | Admission Certification ---
Admission Certification Certification Statement - As attending physician, I certify that at the time of - admission, based on clinical presentation, severity of - symptoms, need for further diagnostic testing and - therapeutic interventions, and risk of adverse outcomes - without in-hospital treatment, in my clinical assessment, - this patient requires an acute hospital stay for a minimum - of two nights or longer. I have also considered psychsocial - factors such as support system, advanced age, financial - issues, cognitive issues, and failed out-patient treatments, - past re-admission history, safety of patient, and lack of - compliance as applicable. Specific rationale supporting this admission is: Colitis with lower GI bleed.
--- NOTE | 2018-01-31 06:54 | PN- Housestaff ---
Neli SILVERIO,[facility] 01/31/18 0653: Subjective Follow-up For: -lower GI bleed -Acute on chronic anemia Subjective: Afebrile, hemodynamically stable, and saturating well on room air. Patient reports mild umbilical tenderness even though she is on fentanyl patch and tramadol for arm pain. She denies nausea, vomiting, or any further episodes of GI bleed Review of Systems Constitutional: Reports: see HPI. Objective Last 24 Hrs of Vital Signs/I&O Vital Signs Date Time Temp Pulse Resp B/P B/P Pulse O2 O2 Flow FiO2 Mean Ox Delivery Rate 01/31 0704 98.0 70 20 126/59 94 Room Air 01/31 0146 98.2 73 20 138/67 94 Room Air 01/31 0000 98.5 71 20 156/66 96 Room Air 01/30 2225 78 18 120/68 98 Room Air 01/30 2038 98.7 80 18 130/69 96 Room Air Intake & Output 01/31 0800 01/31 0000 01/30 1600 Intake Total Output Total Balance Patient 57.606 kg 57.606 kg Weight Weight Reported by Patient Estimated Measurement Method Physical Exam General Appearance: Alert, Cooperative, No Acute Distress HEENT: Atraumatic, PERRLA, EOMI, Mucous Membr. moist/pink Neck: Supple, No JVD Cardiovascular: Regular Rate, Normal S1, Normal S2, 2/6 systolic murmur Lungs: decrease air-enty over lung bilaterally with mild crackles over lung base bilaterally Abdomen: Normal Bowel Sounds, Soft, mild LLQ abd umbilical tenderness Neurological: Normal Speech Extremities: No Clubbing, No Cyanosis, B/l LE edema up to the knees Current Medications: Current Medications Sig/Ck Start time Last Medication Dose Route Stop Time Status Admin Albuterol Sulfate 2 PUF Q4-6 PRN PRN 01/31 014 AC INH Allopurinol 300 MG DAILY 01/31 900 AC PO Amiodarone HCl 100 MG DAILY 01/31 900 AC PO Atorvastatin Calcium 80 MG 1700 01/31 1700 AC PO Duloxetine HCl 60 MG DAILY 01/31 900 AC PO Fentanyl Citrate 75 MCG Q3D 01/31 0145 AC 01/31 TOP 0226 Levothyroxine Sodium 0.125 MG DAILY 01/31 900 AC PO Magnesium Oxide 400 MG BID 01/31 900 AC PO Metoprolol Tartrate 25 MG BID 01/31 0900 AC PO Sodium Chloride 1,000 ML Q20H 01/31 0200 AC 01/31 IV 01/31 2159 0226 Sodium Chloride 1,000 ML ONCE ONE 01/30 2115 DC 01/30 IV 01/31 0354 2235 Tiotropium [place] 1 PUF DAILY 01/31 0900 AC INH Tramadol HCl 50 MG TIDPRN 01/31 0145 AC 01/31 PO 0222 Last 24 Hrs of Lab/Anthony Results Last 24 Hrs of Labs/Mics: Laboratory Tests 01/30/18 2355: Lactic Acid Cancelled 01/30/18 2100: Anion Gap 5, Estimated GFR > 60, BUN/Creatinine Ratio 14.4, Glucose 128 H, Lactic Acid 1.3, Calcium 8.3 L, Phosphorus 3.9, Magnesium 2.1, Total Bilirubin 0.4, AST 28, ALT 27, Alkaline Phosphatase 148 H, Troponin I 0.03, Total Protein 5.3 L, Albumin 3.0 L, Globulin 2.3, Albumin/Globulin Ratio 1.3, PT 15.6 H, INR 1.43 H, CBC w Diff NO MAN DIFF REQ, RBC 3.27 L, MCV 80.9 L, MCH 24.5 L, MCHC 30.3 L, RDW 21.8 H, MPV 8.5, Gran % 63.3, Lymphocytes % 23.6, Monocytes % 9.2, Eosinophils % 3.4, Basophils % 0.5, Absolute Granulocytes 5.2, Absolute Lymphocytes 2.0, Absolute Monocytes 0.8 H, Absolute Eosinophils 0.3, Absolute Basophils 0 Microbiology 01/31 214 STOOL: Clostridium difficile Toxin A & B - COLB Assessment/Plan Assessment: 78-year-old female with multiple comorbidities including but not limited to A. fib on the liquids and history of left breast cancer status post mastectomy who presented with 1 week of watery diarrhea mixed with bright red blood, however earlier on the day of admission she had a gush of bright red blood per rectum. Abdomen CT was significant for diffuse colitis of the sigmoid and rectum, which possibly the source GI bleed while on blood thinner and aspirin. She is hemodynamically stable and denies melena which makes upper GI bleed unlikely. The patient has been provided a list of medication that includes recent antibiotic use. She denies the use of NSAIDs but she is on aspirin. Bone scan that was done 4 days ago showed multiple sites concerning for metastasis. Plan #Rectosigmoid colitis with BRBPR (on the liquids and aspirin) * We will hold liquids and aspirin * We will hold Lasix and losartan until BP is stable and allowed * We will start gentle hydration with IV NS @ 50ml/h (40% EF 2 months ago) * Pending morning CBCs, hemoglobin goal of 8 (Hx CAD s/p stent) * IV access at all time, she had blood cross and match * Clear liquid diet * GI consult was placed by ED #Hx of left invasive ductal carcinoma s/p mastectomy(2010) and current possible mets * We will inform hem/onc about admission #History of lower extremity edema/venous insufficiencyLE edema * hx of cancer and LE edema with right>left and associated right LE tenderness * The pt is was on liquis, however DVT with eliquis fail is possible * We will hold ALPS until B/L LE DVT ruled out by Doppler venous this am #Diastolic dysfunction with pulm HTN and CAD with bare metal stent to the RCA in 2007 and possible recent cath 2 months ago * We'll hold ASA, we'll start once cleared by GI * Continue metoprolol * We'll lasix for now # Paroxysmal A.fib on Eliquis and amiodarone, currently in sinus rhythm * Continue metoprolol and amlodipine * Hold the eliquis # Hypertension/hyperlipidemia/diabetes/hypothyroidism/COPD * Hold losartan until BP is high or no signs of bleeding. * Continue statin * Finger stick glucose check * Low NovoLog SS * Continue levothyroxin #Chronic pain syndrome and history of compression fractures * Continue fentanyl patch 75 mg every 3 days * Continue tramadol 50 mg 3 times a day when necessary -Full code -DVT PPx: no pharmacological given GI bleed, no ALPs until DVT r/o in am -clear liquid diet Problem List: 1. Rectal bleeding Pain Ratin Pain Location: abdominal and right arm Pain Goal: Remain pain free Pain Plan: See A&P Tomorrow's Labs & Rationales: cbc and bep Ana Ontiveros 01/31/18 1335: Attending MD Review Statement Attending Statement Attending MD Statement: examined this patient, discuss w/resident/PA/REINFORCED CONCRETE INSPECTOR, agreed w/resident/PA/REINFORCED CONCRETE INSPECTOR, discussed with family, reviewed EMR data (avail), discussed with nursing, discussed with case mgmt, reviewed images, amended to note Attending Assessment/Plan: 78 o/f with pmh as above comes with few weeks of diarrhea and blood in stools. Patient with c/o overnight bleeding episode. GI consulted. Advance diet as per GI recs. Hold eliquis for now in anticipation of colonoscopy and follow GI when to restart. She c/o BRBPR in stools last night Acute blood loss anemia from GI bleed richieley colitis/IBD: Her HB is 7.3 today and check repeat cbc, if low consider 1 unit fo PRBC. Monitor cbc in am. Afib rate controlled on metoprolol/amidarone anticoagulation held as per GI. H/o CAD c/w asa/statin. htn/hld/dm cont current care..
[2018-01-31 07:04] VITALS: BP 126/59
[2018-01-31 08:34] LABS: ABSOLUTE BASOPHIL COUNT 0 /CUMM (0.0-0.2); ABSOLUTE EOSINOPHIL COUNT 0.2 /CUMM (0.0-0.7); ABSOLUTE GRANULOCYTE CT 3.9 /CUMM (1.4-6.5); ABSOLUTE LYMPH COUNT 1.5 /CUMM (1.2-3.4); ABSOLUTE MONOCYTE COUNT 0.6 /CUMM (0.10-0.60); BASOPHIL % 0.1 % (0.0-2.0); EOSINOPHIL % 3.3 % (0-5); GRANULOCYTE % 63.4 % (42.2-75.2); HEMATOCRIT 23.1 % (37-47); MEAN CORPUSCULAR HGB 25.1 PG (27.0-31.0); MEAN CORPUSCULAR HGB CONC 31.7 G/DL (33.0-37.0); MEAN CORPUSCULAR VOLUME 79.2 FL (81.0-99.0); MEAN PLATELET VOLUME 9.1 FL (7.4-10.4); PLATELET COUNT 242 /CUMM (130-400); RBC DISTRIBUTION WIDTH 21.5 % (11.5-14.5); RED BLOOD CELL CT 2.91 /CUMM (4.20-5.40); WHITE BLOOD CELL COUNT 6.2 /CUMM (4.8-10.8)
--- NOTE | 2018-01-31 11:40 | ULTRASOUND REPORT ---
EXAMINATION: US TRIPLEX OF LOWER EXTREMITIES, BILATERAL CLINICAL INFORMATION: Bilateral lower extremity edema and pain. COMPARISON: Right lower extremity Doppler ultrasound 10/24/2015. TECHNIQUE: Color-flow triplex imaging with spectral analysis and compression Doppler were performed on the lower extremities. FINDINGS: Respiratory variation, normal compression and augmented flow are noted throughout the lower extremities. The visualized common femoral vein, superficial femoral vein, profunda femoral vein, popliteal vein and midcalf peroneal and posterior tibial venous segments show no evidence of deep venous thrombosis. There is no Herbert's cyst. The previously seen right Herbert's cyst is not seen today. IMPRESSION: Negative for DVT bilaterally.
--- NOTE | 2018-01-31 12:57 | Cons- Gastroenterology ---
General Information and HPI Consulting Request Date of Consult: 01/31/18 Requested By: Naif SILVERIO,[facility] Reason for Consult: Hematochezia, abnormal ct scan showing colitis. Source of Information: patient, old records Exam Limitations: dementia History of Present Illness: Ms. 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 She notes that for the past few weeks that her stools have been loose and over the past week she has started to note blood with her bowel movements along with clots which is what prompted her to come to the ER last night. She notes that prior to having the loose stool she had previously been constipated. She has not had any significant abdominal pain with the diarrhea or with eating. She is also without any significant heartburn, vomiting, or dysphagia. She denies having any sick contacts, being on antibiotics recently or any recent foreign travel. In the ER she was noted to be anemic with a hgb of 8.0, but this was not far from her baseline. She had a ct scan that showed distal colitis, but was otherwise unremarkable. She was admitted to the medical service and kept on liquids. She has been hemodynamically stable and hasn't had any significant bleeding since she has been admitted. Allergies/Medications Allergies: Coded Allergies: NO KNOWN ALLERGIES (NKDA) (06/12/13) Home Med List: Albuterol Sulfate (Proair Hfa) 90 MCG HFA.AER.AD 2 PUF INH Q4-6 PRN PRN SOB ( Reported) Allopurinol 300 MG TABLET 1 TAB PO DAILY GOUT (Reported) Amiodarone HCl 100 MG TABLET 1 TAB PO DAILY AFIB (Reported) Apixaban (Eliquis) 5 MG TABLET 1 TAB PO BID THINNER (Reported) Aspirin (Ecotrin*) 81 MG TABLET.DR 1 TAB PO QAM HEART/BLOOD (Reported) Atorvastatin Calcium 80 MG TABLET 1 TAB PO 1700 CHOLESTEROL Calcium Carbonate (Calcium) 500 MG TABLET 1,500 MG PO DAILY SUPPLEMENT ( Reported) Cholecalciferol (Vitamin D3) (Vitamin D3) 1,000 UNIT CAPSULE 1 CAP PO QAM SUPPLEMENT (Reported) Cyanocobalamin (Vitamin B-12) 1,000 MCG TABLET 1 TAB PO DAILY SUPPLEMENT ( Reported) Duloxetine HCl 30 MG CAPSULE.DR 2 TAB PO DAILY DEPRESSION/NERVE PAIN ( Reported) SWITCHED FROM 3 PILLS (90MG) TO 2 PILLS (60MG) DAILY Fentanyl 75 MCG/HOUR PATCH.TD72 1 PAT TOP Q3D PAIN (Reported) Fulvestrant (Faslodex) 250 MG/5 ML SYRINGE BREAST CANCER (Reported) Furosemide 40 MG TABLET 1 TAB PO QAM DIURETIC (Reported) Levothyroxine Sodium (Synthroid) 125 MCG TABLET 1 TAB PO DAILY HYPOTHYROID ( Reported) Losartan Potassium 50 MG TABLET 1 TAB PO DAILY HTN (Reported) Magnesium Oxide 400 MG TABLET 1 TAB PO BID SUPPLEMENT (Reported) Metoprolol Tartrate 25 MG TABLET 1 TAB PO BID HEART/BP (Reported) Morphine Sulfate 30 MG TABLET 1 TAB PO 4 TIMES/DAY PAIN (Reported) [place]-3/Dha/Epa/Fish Oil (Fish Oil 1,000 MG Softgel) 1 EACH CAPSULE 1 CAP PO DAILY SUPPLEMENT (Reported) Potassium Chloride 10 MEQ TABLET.ER 2 TAB PO QPM SUPPLEMENT (Reported) Tiotropium [place] (Spiriva) 18 MCG CAP.W.DEV 1 PUF INH DAILY SOB Tramadol HCl 50 MG TABLET 1 TAB PO TIDPRN PAIN (Reported) Current Medications: Current Medications Sig/Ck Start time Last Medication Dose Route Stop Time Status Admin Albuterol Sulfate 2 PUF Q4-6 PRN PRN 01/31 0145 AC INH Allopurinol 300 MG DAILY 01/31 0900 AC 01/31 PO 0851 Amiodarone HCl 100 MG DAILY 01/31 0900 AC 01/31 PO 0851 Atorvastatin Calcium 80 MG 1700 01/31 1700 AC PO Duloxetine HCl 60 MG DAILY 01/31 0900 AC 01/31 PO 0851 Fentanyl Citrate 75 MCG Q3D 01/31 0145 AC 01/31 TOP 0226 Hydromorphone HCl 2 MG ONCE ONE 01/31 1145 CAN PO 01/31 1146 Levothyroxine Sodium 0.125 MG DAILY 01/31 0900 AC 01/31 PO 0851 Magnesium Oxide 400 MG BID 01/31 0900 AC 01/31 PO 0851 Metoprolol Tartrate 25 MG BID 01/31 0900 AC 01/31 PO 0851 Morphine Sulfate 15 MG Q6P PRN 01/31 1215 AC PO Sodium Chloride 1,000 ML Q20H 01/31 0200 AC 01/31 IV 01/31 2159 0226 Sodium Chloride 1,000 ML ONCE ONE 01/30 2115 DC 01/30 IV 01/31 0354 2235 Tiotropium [place] 1 PUF DAILY 01/31 0900 AC 01/31 INH 0851 Tramadol HCl 50 MG TIDPRN 01/31 0145 AC 01/31 PO 1022 Past History Travel History Traveled to [place] past 21 day No Medical History Neurological: ALZHEIMERS? qUESTION EENT: NONE Cardiovascular: AFIB, hypertension, hyperlipidemia Respiratory: COPD Gastrointestinal: GERD Hepatic: NONE Renal: NONE Musculoskeletal: COMPRESSION FRACTURES OA Psychiatric: NONE Endocrine: diabetes, HYPOTHYROID Blood Disorders: NONE Cancer(s): breast cancer (WITH METS), WITH METASTISIS DRUG AND ALCOHOL TREATMENT SPECIALIST/Reproductive: NONE Surgical History Surgical History: LEFT MASTECTOMY Family History Relations & Conditions If Any: Relation not specified for: *No pertinent family history Psychosocial History Where Do You Live? Home Services at Home: None Primary Language: Korean Smoking Status: Former Smoker Review of Systems Review of Systems Constitutional: Reports: malaise, weakness. Denies: diaphoresis, fever, unexplained weight loss. EENTM: Denies: no symptoms. Cardiovascular: Reports: edema, peripheral edema. Denies: chest pain, orthopena, palpitations. Respiratory: Denies: no symptoms. GI: Reports: see HPI. Genitourinary: Denies: no symptoms. Musculoskeletal: Reports: joint pain, muscle pain. Denies: muscle stiffness, neck pain. Skin: Denies: no symptoms. Neurological/Psychological: Reports: dementia. Hematologic/Endocrine: Reports: bleeding. Immunologic/Allergic: Denies: no symptoms. All Other Systems: Reviewed and Negative Exam & Diagnostic Data Vital Signs and I&O Vital Signs Date Time Temp Pulse Resp B/P B/P Pulse O2 O2 Flow FiO2 Mean Ox Delivery Rate 01/31 0851 71 128/64 01/31 0851 71 128/64 01/31 0704 98.0 70 20 126/59 94 Room Air 01/31 0146 98.2 73 20 138/67 94 Room Air 01/31 0000 98.5 71 20 156/66 96 Room Air 01/30 2225 78 18 120/68 98 Room Air 01/308 98.7 80 18 130/69 96 Room Air Intake & Output 01/31 1600 01/31 0400 0401/30 04001/29 0400 Intake Total 300 Output Total Balance 300 Intake, IV 250 Intake, Oral 50 Patient 127 lb Weight Weight Reported by Patient Measurement Method Physical Exam General Appearance: well developed/nourished, no apparent distress, alert, awake , comfortable Head: atraumatic, normal appearance Eyes: Bilateral: normal appearance. Ears, Nose, Throat: normal pharynx, normal ENT inspection, hearing grossly normal Neck: normal inspection, supple, full range of motion Respiratory: normal breath sounds Cardiovascular: regular rate/rhythm Gastrointestinal: normal bowel sounds, soft, non-tender, no organomegaly Rectal: deferred Back: normal inspection, normal range of motion Extremities: pedal edema Neurologic/Psych: no motor/sensory deficits, awake, alert, oriented x 3 Skin: intact, normal color, warm/dry Results Pertinent Lab Results: Laboratory Tests 01/31 01/30 0658 2355 Chemistry Sodium (137 - 145 mmol/L) 138 Potassium (3.5 - 5.1 mmol/L) 4.1 Chloride (98 - 107 mmol/L) 102 Carbon Dioxide (22 - 30 mmol/L) 30 Anion Gap (5 - 16) 6 BUN (7 - 17 mg/dL) 10 Creatinine (0.5 - 1.0 mg/dL) 0.8 Estimated GFR (>60 ml/min) > 60 BUN/Creatinine Ratio (7 - 25 %) 12.5 Lactic Acid Cancelled Troponin I (< 0.11 ng/ml) 0.03 Hematology CBC w Diff MAN DIFF ORDERED WBC (4.8 - 10.8 /CUMM) 6.2 RBC (4.20 - 5.40 /CUMM) 2.91 L Hgb (12.0 - 16.0 G/DL) 7.3 *L Hct (37 - 47 %) 23.1 L MCV (81.0 - 99.0 FL) 79.2 L MCH (27.0 - 31.0 PG) 25.1 L MCHC (33.0 - 37.0 G/DL) 31.7 L RDW (11.5 - 14.5 %) 21.5 H Plt Count (130 - 400 /CUMM) 242 MPV (7.4 - 10.4 FL) 9.1 Gran % (42.2 - 75.2 %) 63.4 Lymphocytes % (20.5 - 51.1 %) 24.2 Monocytes % (1.7 - 9.3 %) 9.0 Eosinophils % (0 - 5 %) 3.3 Basophils % (0.0 - 2.0 %) 0.1 Absolute Granulocytes (1.4 - 6.5 /CUMM) 3.9 Absolute Lymphocytes (1.2 - 3.4 /CUMM) 1.5 Absolute Monocytes (0.10 - 0.60 /CUMM) 0.6 Absolute Eosinophils (0.0 - 0.7 /CUMM) 0.2 Absolute Basophils (0.0 - 0.2 /CUMM) 0 Platelet Estimate (ADEQUATE) VERIFIED BY SMEAR Polychromasia 1+ Hypochromic-Microcytic 1+ Poikilocytosis 1+ Anisocytosis 1+ Microcytic Cells 1+ Ovalocytes 1+ 04/20 2100 Chemistry Sodium (137 - 145 mmol/L) 135 L Potassium (3.5 - 5.1 mmol/L) 3.9 Chloride (98 - 107 mmol/L) 98 Carbon Dioxide (22 - 30 mmol/L) 32 H Anion Gap (5 - 16) 5 BUN (7 - 17 mg/dL) 13 Creatinine (0.5 - 1.0 mg/dL) 0.9 Estimated GFR (>60 ml/min) > 60 BUN/Creatinine Ratio (7 - 25 %) 14.4 Glucose (65 - 99 mg/dL) 128 H Lactic Acid (0.7 - 2.1 mmol/L) 1.3 Calcium (8.4 - 10.2 mg/dL) 8.3 L Phosphorus (2.5 - 4.5 mg/dL) 3.9 Magnesium (1.6 - 2.3 mg/dL) 2.1 Total Bilirubin (0.2 - 1.3 mg/dL) 0.4 AST (14 - 36 U/L) 28 ALT (9 - 52 U/L) 27 Alkaline Phosphatase (<127 U/L) 148 H Troponin I (< 0.11 ng/ml) 0.03 Total Protein (6.3 - 8.2 g/dL) 5.3 L Albumin (3.5 - 5.0 g/dL) 3.0 L Globulin (1.9 - 4.2 gm/dL) 2.3 Albumin/Globulin Ratio (1.1 - 2.2 %) 1.3 Coagulation PT (9.4 - 12.5 SEC) 15.6 H INR (0.90 - 1.19) 1.43 H Hematology CBC w Diff NO MAN DIFF REQ WBC (4.8 - 10.8 /CUMM) 8.3 RBC (4.20 - 5.40 /CUMM) 3.27 L Hgb (12.0 - 16.0 G/DL) 8.0 L Hct (37 - 47 %) 26.5 L MCV (81.0 - 99.0 FL) 80.9 L MCH (27.0 - 31.0 PG) 24.5 L MCHC (33.0 - 37.0 G/DL) 30.3 L RDW (11.5 - 14.5 %) 21.8 H Plt Count (130 - 400 /CUMM) 307 MPV (7.4 - 10.4 FL) 8.5 Gran % (42.2 - 75.2 %) 63.3 Lymphocytes % (20.5 - 51.1 %) 23.6 Monocytes % (1.7 - 9.3 %) 9.2 Eosinophils % (0 - 5 %) 3.4 Basophils % (0.0 - 2.0 %) 0.5 Absolute Granulocytes (1.4 - 6.5 /CUMM) 5.2 Absolute Lymphocytes (1.2 - 3.4 /CUMM) 2.0 Absolute Monocytes (0.10 - 0.60 /CUMM) 0.8 H Absolute Eosinophils (0.0 - 0.7 /CUMM) 0.3 Absolute Basophils (0.0 - 0.2 /CUMM) 0 Imaging/Other Studies: Colonoscopy [address] Ty Impression: 1. Multiple polyps removed as follows: (Specimen A-1 cm sessile proximal right colon polyp-biopsy/hot snare polypectomy/clip 1. Specimen B-5 mm right colon polyp-cold biopsy. Specimen C-1 cm sessile distal transverse colon polyp at 70 cm-biopsy/hot snare polypectomy/clip 1). 2. Fairly extensive pandiverticulosis coli, left side greater than right, with intermittent spasm. 3. External anal skin tag. A. PROXIMAL RIGHT COLON POLYP, BIOPSY: TUBULAR ADENOMA. NEGATIVE FOR EVIDENCE OF INVASIVE CARCINOMA. B. RIGHT COLON POLYP, BIOPSY: TUBULAR ADENOMA. NEGATIVE FOR EVIDENCE OF INVASIVE CARCINOMA. C. DISTAL TRANSVERSE COLON POLYP AT 70 CM.: TUBULAR ADENOMA. NEGATIVE FOR EVIDENCE OF INVASIVE CARCINOMA. SERVICE DATE: 01/30/18 EXAM TYPE: CAT - CT ABD & PELVIS W IV CONTRAST EXAMINATION: CT ABDOMEN AND PELVIS WITH CONTRAST CLINICAL INFORMATION: Rectal bleeding. Abdominal pain. COMPARISON: PET/CT exam 04/23/2016 . CTA chest 05/07/2016 TECHNIQUE: Multidetector volumetric imaging was performed of the abdomen and pelvis following IV administration of 95 mL of Optiray 320 intravenous contrast. Sagittal and coronal reformatted images were obtained on the technologist's workstation. DLP: 242.23 mGy-cm FINDINGS: LUNG BASES: The visualized lung bases are unremarkable. LIVER, GALLBLADDER, AND BILIARY TREE: The liver is normal in size, shape, and attenuation. No focal hepatic lesion or biliary ductal dilatation is present. The gallbladder is unremarkable with no evidence of radiopaque gallstones, gallbladder wall thickening, or obvious pericholecystic inflammatory changes. PANCREAS: The pancreas is atrophic. No inflammation. No pancreatic mass or pancreatic duct dilatation. SPLEEN: Unremarkable. ADRENAL GLANDS: Unremarkable. KIDNEYS AND URETERS: The kidneys are normal in size, shape, and attenuation. No hydronephrosis, hydroureter, or calculi seen. No perinephric stranding. BLADDER: Unremarkable. GASTROINTESTINAL TRACT: There is a diverticulum at the cardia of the stomach in the left upper quadrant measuring 2 cm. There is significant diffuse thickening of the bowel wall involving the sigmoid to rectum with surrounding edema. Findings consistent with colitis. The sigmoid colon is redundant, the sigmoid loops to the right side of the abdomen. The remainder of the bowel wall the colon is normal. There is a large volume of stool in the colon from the cecum through the descending colon. Very little stool is present in the area of the colitis of the sigmoid colon. The appendix is not seen. The small bowel loops are unremarkable. MESENTERY: There is free fluid in the pelvis surrounding the sigmoid bowel loops from the colitis. No free air. No abscess. ABDOMINAL WALL: There is mild generalized anasarca. LYMPH NODES: Normal. VASCULAR: There is extensive atherosclerotic vascular wall calcification of aorta and iliac vessels without aneurysm. There is a prominent left-sided gonadal vein. PELVIC VISCERA: The uterus is anteverted. No adnexal abnormality. OSSEOUS STRUCTURES: Degenerative spondylosis of spine. There is multilevel compression deformities of the lumbar and thoracic vertebrae this is unchanged since the MR study of 06/19/2017. Old healed fracture with residual deformity of the left symphysis pubis. There is vertebroplasty of the sacrum. IMPRESSION: Significant diffuse colitis of the sigmoid and rectum. No air in the bowel wall. There is some fluid in the pelvis related to the colitis. No abscess. There is a large volume of stool in the right colon which is not inflamed. Assessment/Plan Assessment/Recommendations: Assessment: Ms. Lentz is a 78 year old female with multiple medical problems who presented to with a few weeks worth of diarrhea that has become bloody over the past week which I feel is possibly secondary to late onset ulcerative colitis. The diagnosis of IBD is supported by the chronicity of her symptoms and the inflammation on her ct scan in her sigmoid colon and rectum. A self limited diverticular bleed is also possible, but I feel this is less likely. It is also possible that she has infectious gastroenteritis or the diarrhea could be functional with the bleeding from hemorrhoids and exacerbated by anticoagulation. The bleeding seems to have stopped with holding her eliquis and she is hemodynamically stable so while I don't feel that urgent intervention is necessary I do feel it would be reasonable to repeat her colonoscopy on Friday to assess for colitis and she is technically also do for polyp surveillance as she did have 3 adenomas on her last colonoscopy in 2014. Doing the examination on Friday will also allow for adequate time for the Eliquis to clear her system in case a polypectomy needs to be performed. Recommendations: 1. Diet as tolearted today, but put on a full liquid diet tomorrow with nothing red. 2. Follow CBC q12hrs and transfuse as needed to maintain hgb > 8 or as per cardiology recommendations 3. Would hold Eliquis for now, but it is ok to continue aspirin for cardiac prophylaxis if it is indicated 4. Check stool studies for c diff, culture and o and p should she have any further diarrhea while an inpatient. 5. Will tentatively plan to perform a diagnostic colonoscopy on Friday so will prep after a liquid supper on Friday night with 2 dulcolax tablets followed by one gallon of golytle and keep NPO after the bowel prep. 6. Notify GI for signs of hemodynamically significant overt GI bleeding I will continue to follow this patient and make further recommendations based on her clinical course the resuts of repeat blood work and stool testing if it is done and on the results of the colonoscopy to be performed on Friday. Copies To: Asaf SILVERIO,Karen Consult Acknowledgment - Thank you for your consult request.
[2018-01-31 15:11] VITALS: BP 122/78
[2018-01-31 18:01] LABS: ABSOLUTE BASOPHIL COUNT 0.1 /CUMM (0.0-0.2); ABSOLUTE EOSINOPHIL COUNT 0.3 /CUMM (0.0-0.7); ABSOLUTE GRANULOCYTE CT 3.7 /CUMM (1.4-6.5); ABSOLUTE LYMPH COUNT 1.5 /CUMM (1.2-3.4); ABSOLUTE MONOCYTE COUNT 0.5 /CUMM (0.10-0.60); BASOPHIL % 0.9 % (0.0-2.0); EOSINOPHIL % 5.5 % (0-5); GRANULOCYTE % 60.5 % (42.2-75.2); MEAN CORPUSCULAR HGB 25.1 PG (27.0-31.0); MEAN CORPUSCULAR HGB CONC 31.6 G/DL (33.0-37.0); MEAN CORPUSCULAR VOLUME 79.4 FL (81.0-99.0); PLATELET COUNT 261 /CUMM (130-400); RBC DISTRIBUTION WIDTH 21.3 % (11.5-14.5); RED BLOOD CELL CT 3.02 /CUMM (4.20-5.40); WHITE BLOOD CELL COUNT 6.1 /CUMM (4.8-10.8)
[2018-01-31 21:06] VITALS: BP 121/60
[2018-02-01 07:29] VITALS: BP 138/63
[2018-02-01 08:32] LABS: ABSOLUTE BASOPHIL COUNT 0 /CUMM (0.0-0.2); ABSOLUTE EOSINOPHIL COUNT 0.4 /CUMM (0.0-0.7); ABSOLUTE GRANULOCYTE CT 4.1 /CUMM (1.4-6.5); ABSOLUTE LYMPH COUNT 1.5 /CUMM (1.2-3.4); ABSOLUTE MONOCYTE COUNT 0.5 /CUMM (0.10-0.60); BASOPHIL % 0.3 % (0.0-2.0); EOSINOPHIL % 5.6 % (0-5); GRANULOCYTE % 62.7 % (42.2-75.2); MEAN CORPUSCULAR HGB 26.4 PG (27.0-31.0); MEAN CORPUSCULAR HGB CONC 32.4 G/DL (33.0-37.0); MEAN CORPUSCULAR VOLUME 81.7 FL (81.0-99.0); MEAN PLATELET VOLUME 9.4 FL (7.4-10.4); PLATELET COUNT 268 /CUMM (130-400); RBC DISTRIBUTION WIDTH 20.7 % (11.5-14.5); RED BLOOD CELL CT 3.62 /CUMM (4.20-5.40); WHITE BLOOD CELL COUNT 6.5 /CUMM (4.8-10.8)
[2018-02-01 10:04] LABS: HEMATOCRIT 29.6 % (37-47)
--- NOTE | 2018-02-01 12:19 | PN- Gastroenterology ---
Assessment/Plan GI Assessment/Recommendations: Assessment: Ms. Lentz is a 78 year old female with afib on anticoagulation admitted with blood diarrhea and colitis on a ct scan concerning for possible ulcerative colitis with the bleeding being exacerbated by the Eliquis she was on. She is currently doing well and hasn't had any significant rectal bleeding since admission. Her hgb has improved appropriately with transfusion so I don't feel urgent intervention is necessary and will plan to do her colonoscopy tomorrow. Recommendations: 1. Keep on full liquid diet today with nothing red and after a liquid dinner would administer 2 dulcolax tablets followed by 1/2 gallon of golytely and another 1/2 gallon in the am 6/7am and NPO after the bowel prep in anticipation of for a diagnostic/therapeutic colonoscopy tomorrow 2. Follow daily cbc and transfuse as needed 3. Hold Eliquis for now 4. Notify GI for signs of hemodynamically significant GI bleeding I will continue to follow this patient and make further recommendations based on her clinical course and the results of tomorrows colonoscopy. Subjective Subjective: no significnat rectal bleeding since admission. some loose stool, but no abdomina pain or vomiting. tolerating a liquid diet. s/p transfusion with one unit of PRBCs yesterday. Objective Vital Signs and I&Os Vital Signs Date Time Temp Pulse Resp B/P B/P Pulse O2 O2 Flow FiO2 Mean Ox Delivery Rate 02/01 1040 50 120/62 02/01 0729 98.0 61 18 138/63 94 Room Air 01/31 2113 61 121/60 01/31 2106 98.4 61 20 121/60 98 Room Air 01/31 1511 98.1 68 18 122/78 95 Intake & Output 02/01 1600 02/01 0400 01/31 1600 01/31 0400 01/30 1600 01/30 0400 Intake Total 300 1450 Output Total 450 700 Balance 300 -450 750 Intake, Blood 300 Product Intake, IV 650 Intake, Oral 800 Output, Urine 450 700 Patient 134 lb 127 lb Weight Weight Reported by Patient Measurement Method Physical Exam General Appearance: well developed/nourished, no apparent distress, comfortable Head: atraumatic Neck: supple Respiratory: normal breath sounds, chest non-tender, no respiratory distress Cardiovascular: irregularly irregular Abdomen: normal bowel sounds, soft, non-tender, no organomegaly Extremities: normal inspection Skin: intact, normal color Current Medications: Current Medications Sig/Ck Start time Last Medication Dose Route Stop Time Status Admin Albuterol Sulfate 2 PUF Q4-6 PRN PRN 01/31 0145 AC INH Allopurinol 300 MG DAILY 01/31 09 AC 02/01 PO 1034 Amiodarone HCl 100 MG DAILY 01/31 0900 AC 01/31 PO 0851 Atorvastatin Calcium 80 MG 1700 01/31 1700 AC 01/31 PO 1610 Duloxetine HCl 60 MG DAILY 01/31 09 AC 02/01 PO 1034 Fentanyl Citrate 75 MCG Q3D 01/31 0145 AC 01/31 TOP 0226 Levothyroxine Sodium 0.125 MG DAILY 01/31 09 AC 02/01 PO 1034 Magnesium Oxide 400 MG BID 01/31 09 AC 02/01 PO 1034 Metoprolol Tartrate 25 MG BID 01/31 09 AC 01/31 PO 2113 Morphine Sulfate 15 MG Q6P PRN 01/31 1215 AC 02/01 PO 1043 Sodium Chloride 1,000 ML Q20H 01/31 0200 DC 01/31 IV 01/31 2159 0226 Tiotropium [place] 1 PUF DAILY 01/31 09 AC 02/01 INH 1034 Tramadol HCl 50 MG TIDPRN 01/31 0145 AC 01/31 PO 1611 Results Pertinent Lab Results: Laboratory Tests 02/01 01/31 0710 1725 Chemistry Sodium (137 - 145 mmol/L) 140 Potassium (3.5 - 5.1 mmol/L) 3.9 Chloride (98 - 107 mmol/L) 103 Carbon Dioxide (22 - 30 mmol/L) 30 Anion Gap (5 - 16) 7 BUN (7 - 17 mg/dL) 11 Creatinine (0.5 - 1.0 mg/dL) 0.7 Estimated GFR (>60 ml/min) > 60 BUN/Creatinine Ratio (7 - 25 %) 15.7 Hematology CBC w Diff MAN DIFF ORDERED NO MAN DIFF REQ WBC (4.8 - 10.8 /CUMM) 6.5 6.1 RBC (4.20 - 5.40 /CUMM) 3.62 L 3.02 L Hgb (12.0 - 16.0 G/DL) 9.6 L 7.6 L Hct (37 - 47 %) 29.6 L 24.0 L MCV (81.0 - 99.0 FL) 81.7 79.4 L MCH (27.0 - 31.0 PG) 26.4 L 25.1 L MCHC (33.0 - 37.0 G/DL) 32.4 L 31.6 L RDW (11.5 - 14.5 %) 20.7 H 21.3 H Plt Count (130 - 400 /CUMM) 268 261 MPV (7.4 - 10.4 FL) 9.4 9.0 Gran % (42.2 - 75.2 %) 62.7 60.5 Lymphocytes % (20.5 - 51.1 %) 23.4 24.6 Monocytes % (1.7 - 9.3 %) 8.0 8.5 Eosinophils % (0 - 5 %) 5.6 H 5.5 H Basophils % (0.0 - 2.0 %) 0.3 0.9 Absolute Granulocytes (1.4 - 6.5 /CUMM) 4.1 3.7 Absolute Lymphocytes (1.2 - 3.4 /CUMM) 1.5 1.5 Absolute Monocytes (0.10 - 0.60 /CUMM) 0.5 0.5 Absolute Eosinophils (0.0 - 0.7 /CUMM) 0.4 0.3 Absolute Basophils (0.0 - 0.2 /CUMM) 0 0.1 Platelet Estimate (ADEQUATE) VERIFIED BY SMEAR Polychromasia 1+ Poikilocytosis 1+ Anisocytosis 1+ Ovalocytes 1+ 01/31 1510 Urines Urinalysis MOD H Urine Color (YEL,AMB,STR) YEL Urine Clarity (CLEAR) HAZY H Urine pH (5.0 - 8.0) 6.5 Ur Specific [place] (1.001 - 1.035) 1.015 Urine Protein (NEG,<30 MG/DL) 30 H Urine Ketones (NEG) NEG Urine Nitrite (NEG) NEG Urine Bilirubin (NEG) NEG Urine Urobilinogen (0.1 - 1.0 EU/dl) 0.2 Ur Leukocyte Esterase (NEG) SMALL H Ur Microscopic SEDIMENT EXAMINED Urine RBC (0 - 5 /HPF) 1-3 Urine WBC (0 - 2 /HPF) 10-15 H Ur Epithelial Cells (NONE,FEW) FEW Urine Bacteria (NEG/NONE) MANY H Hyaline Casts (0/LPF) RARE H Urine Mucus (FEW,NONE) FEW Urine Hemoglobin (NEG) SMALL H Urine Glucose (N MG/DL) NEG 01/31 01/30 0658 2355 Chemistry Sodium (137 - 145 mmol/L) 138 Potassium (3.5 - 5.1 mmol/L) 4.1 Chloride (98 - 107 mmol/L) 102 Carbon Dioxide (22 - 30 mmol/L) 30 Anion Gap (5 - 16) 6 BUN (7 - 17 mg/dL) 10 Creatinine (0.5 - 1.0 mg/dL) 0.8 Estimated GFR (>60 ml/min) > 60 BUN/Creatinine Ratio (7 - 25 %) 12.5 Lactic Acid Cancelled Troponin I (< 0.11 ng/ml) 0.03 Hematology CBC w Diff MAN DIFF ORDERED WBC (4.8 - 10.8 /CUMM) 6.2 RBC (4.20 - 5.40 /CUMM) 2.91 L Hgb (12.0 - 16.0 G/DL) 7.3 *L Hct (37 - 47 %) 23.1 L MCV (81.0 - 99.0 FL) 79.2 L MCH (27.0 - 31.0 PG) 25.1 L MCHC (33.0 - 37.0 G/DL) 31.7 L RDW (11.5 - 14.5 %) 21.5 H Plt Count (130 - 400 /CUMM) 242 MPV (7.4 - 10.4 FL) 9.1 Gran % (42.2 - 75.2 %) 63.4 Lymphocytes % (20.5 - 51.1 %) 24.2 Monocytes % (1.7 - 9.3 %) 9.0 Eosinophils % (0 - 5 %) 3.3 Basophils % (0.0 - 2.0 %) 0.1 Absolute Granulocytes (1.4 - 6.5 /CUMM) 3.9 Absolute Lymphocytes (1.2 - 3.4 /CUMM) 1.5 Absolute Monocytes (0.10 - 0.60 /CUMM) 0.6 Absolute Eosinophils (0.0 - 0.7 /CUMM) 0.2 Absolute Basophils (0.0 - 0.2 /CUMM) 0 Platelet Estimate (ADEQUATE) VERIFIED BY SMEAR Polychromasia 1+ Hypochromic-Microcytic 1+ Poikilocytosis 1+ Anisocytosis 1+ Microcytic Cells 1+ Ovalocytes 1+ 01/30 Chemistry Sodium (137 - 145 mmol/L) 135 L Potassium (3.5 - 5.1 mmol/L) 3.9 Chloride (98 - 107 mmol/L) 98 Carbon Dioxide (22 - 30 mmol/L) 32 H Anion Gap (5 - 16) 5 BUN (7 - 17 mg/dL) 13 Creatinine (0.5 - 1.0 mg/dL) 0.9 Estimated GFR (>60 ml/min) > 60 BUN/Creatinine Ratio (7 - 25 %) 14.4 Glucose (65 - 99 mg/dL) 128 H Lactic Acid (0.7 - 2.1 mmol/L) 1.3 Calcium (8.4 - 10.2 mg/dL) 8.3 L Phosphorus (2.5 - 4.5 mg/dL) 3.9 Magnesium (1.6 - 2.3 mg/dL) 2.1 Total Bilirubin (0.2 - 1.3 mg/dL) 0.4 AST (14 - 36 U/L) 28 ALT (9 - 52 U/L) 27 Alkaline Phosphatase (<127 U/L) 148 H Troponin I (< 0.11 ng/ml) 0.03 Total Protein (6.3 - 8.2 g/dL) 5.3 L Albumin (3.5 - 5.0 g/dL) 3.0 L Globulin (1.9 - 4.2 gm/dL) 2.3 Albumin/Globulin Ratio (1.1 - 2.2 %) 1.3 Coagulation PT (9.4 - 12.5 SEC) 15.6 H INR (0.90 - 1.19) 1.43 H Hematology CBC w Diff NO MAN DIFF REQ WBC (4.8 - 10.8 /CUMM) 8.3 RBC (4.20 - 5.40 /CUMM) 3.27 L Hgb (12.0 - 16.0 G/DL) 8.0 L Hct (37 - 47 %) 26.5 L MCV (81.0 - 99.0 FL) 80.9 L MCH (27.0 - 31.0 PG) 24.5 L MCHC (33.0 - 37.0 G/DL) 30.3 L RDW (11.5 - 14.5 %) 21.8 H Plt Count (130 - 400 /CUMM) 307 MPV (7.4 - 10.4 FL) 8.5 Gran % (42.2 - 75.2 %) 63.3 Lymphocytes % (20.5 - 51.1 %) 23.6 Monocytes % (1.7 - 9.3 %) 9.2 Eosinophils % (0 - 5 %) 3.4 Basophils % (0.0 - 2.0 %) 0.5 Absolute Granulocytes (1.4 - 6.5 /CUMM) 5.2 Absolute Lymphocytes (1.2 - 3.4 /CUMM) 2.0 Absolute Monocytes (0.10 - 0.60 /CUMM) 0.8 H Absolute Eosinophils (0.0 - 0.7 /CUMM) 0.3 Absolute Basophils (0.0 - 0.2 /CUMM) 0 Urines Urine Color Cancelled Urine Clarity Cancelled Urine pH Cancelled Ur Specific [place] Cancelled Urine Protein Cancelled Urine Ketones Cancelled Urine Nitrite Cancelled Urine Bilirubin Cancelled Urine Urobilinogen Cancelled Ur Leukocyte Esterase Cancelled Ur Microscopic Cancelled Urine Hemoglobin Cancelled Urine Glucose Cancelled
--- NOTE | 2018-02-01 12:37 | PN- Att Addend ---
Attending Addendum Attending Brief Note 78 o/f with pmh as above comes with few weeks of diarrhea and blood in stools. Patient with c/o overnight bleeding episode. She c/o BRBPR in stools last night but less copios than before. Vitals stable. PE unremarkable. Acute blood loss anemia from GI bleed richieley colitis/IBD: Her HB is 9.6. Afib rate controlled on metoprolol/amidarone anticoagulation held as per GI. H/o CAD c/w asa/statin. GI consulted. Advance diet as per GI recs. Hold eliquis for now in anticipation of colonoscopy tomorrow, bowel prep as per GI and follow GI when to restart anticoagulation. htn/hld/dm cont current care.. Admission Lab Results I reviewed the following labs: Laboratory Tests 02/01 01/31 0710 1725 Chemistry Sodium (137 - 145 mmol/L) 140 Potassium (3.5 - 5.1 mmol/L) 3.9 Chloride (98 - 107 mmol/L) 103 Carbon Dioxide (22 - 30 mmol/L) 30 Anion Gap (5 - 16) 7 BUN (7 - 17 mg/dL) 11 Creatinine (0.5 - 1.0 mg/dL) 0.7 Estimated GFR (>60 ml/min) > 60 BUN/Creatinine Ratio (7 - 25 %) 15.7 Hematology CBC w Diff MAN DIFF ORDERED NO MAN DIFF REQ WBC (4.8 - 10.8 /CUMM) 6.5 6.1 RBC (4.20 - 5.40 /CUMM) 3.62 L 3.02 L Hgb (12.0 - 16.0 G/DL) 9.6 L 7.6 L Hct (37 - 47 %) 29.6 L 24.0 L MCV (81.0 - 99.0 FL) 81.7 79.4 L MCH (27.0 - 31.0 PG) 26.4 L 25.1 L MCHC (33.0 - 37.0 G/DL) 32.4 L 31.6 L RDW (11.5 - 14.5 %) 20.7 H 21.3 H Plt Count (130 - 400 /CUMM) 268 261 MPV (7.4 - 10.4 FL) 9.4 9.0 Gran % (42.2 - 75.2 %) 62.7 60.5 Lymphocytes % (20.5 - 51.1 %) 23.4 24.6 Monocytes % (1.7 - 9.3 %) 8.0 8.5 Eosinophils % (0 - 5 %) 5.6 H 5.5 H Basophils % (0.0 - 2.0 %) 0.3 0.9 Absolute Granulocytes (1.4 - 6.5 /CUMM) 4.1 3.7 Absolute Lymphocytes (1.2 - 3.4 /CUMM) 1.5 1.5 Absolute Monocytes (0.10 - 0.60 /CUMM) 0.5 0.5 Absolute Eosinophils (0.0 - 0.7 /CUMM) 0.4 0.3 Absolute Basophils (0.0 - 0.2 /CUMM) 0 0.1 Platelet Estimate (ADEQUATE) VERIFIED BY SMEAR Polychromasia 1+ Poikilocytosis 1+ Anisocytosis 1+ Ovalocytes 1+ 01/31 1510 Urines Urinalysis MOD H Urine Color (YEL,AMB,STR) YEL Urine Clarity (CLEAR) HAZY H Urine pH (5.0 - 8.0) 6.5 Ur Specific [place] (1.001 - 1.035) 1.015 Urine Protein (NEG,<30 MG/DL) 30 H Urine Ketones (NEG) NEG Urine Nitrite (NEG) NEG Urine Bilirubin (NEG) NEG Urine Urobilinogen (0.1 - 1.0 EU/dl) 0.2 Ur Leukocyte Esterase (NEG) SMALL H Ur Microscopic SEDIMENT EXAMINED Urine RBC (0 - 5 /HPF) 1-3 Urine WBC (0 - 2 /HPF) 10-15 H Ur Epithelial Cells (NONE,FEW) FEW Urine Bacteria (NEG/NONE) MANY H Hyaline Casts (0/LPF) RARE H Urine Mucus (FEW,NONE) FEW Urine Hemoglobin (NEG) SMALL H Urine Glucose (N MG/DL) NEG Admission Meds I reviewed the following Meds: Current Medications Sig/Ck Start time Last Medication Dose Stop Time Status Admin Albuterol Sulfate 2 PUF Q4-6 PRN PRN 01/31 0145 AC (Ventolin) Allopurinol 300 MG DAILY 01/31 0900 AC 02/01 (Zyloprim) 1034 Amiodarone HCl 100 MG DAILY 01/31 0900 AC 01/31 (Cordarone) 0851 Atorvastatin Calcium 80 MG 1700 01/31 1700 AC 01/31 (Lipitor) 1610 Duloxetine HCl 60 MG DAILY 01/31 0900 AC 02/01 (Cymbalta) 1034 Fentanyl Citrate 75 MCG Q3D 01/31 0145 AC 01/31 (Duragesic) 0226 Levothyroxine Sodium 0.125 MG DAILY 01/31 0900 AC 02/01 (Synthroid) 1034 Magnesium Oxide 400 MG BID 01/31 0900 AC 02/01 (Mag-Ox) 1034 Metoprolol Tartrate 25 MG BID 01/31 0900 AC 01/31 (Lopressor) 2113 Morphine Sulfate 15 MG Q6P PRN 01/31 1215 AC 02/01 (MSIR) 1043 Tiotropium [place] 1 PUF DAILY 01/31 0900 AC 02/01 (Spiriva) 1034 Tramadol HCl 50 MG TIDPRN 01/31 0145 AC 01/31 (Ultram) 1611
[2018-02-01 13:51] VITALS: BP 110/50
[2018-02-01 22:08] VITALS: BP 128/70
[2018-02-02 06:00] VITALS: BP 146/66
--- NOTE | 2018-02-02 07:22 | PN- Housestaff ---
See Addendum Subjective Follow-up For: Colitis Subjective: No overnight events. Patient complaining of right shoulder/arm pain has been there for a couple weeks. She does not remember hurting it. Otherwise, she has been having diarrhea due to the GoLYTELY which continues to have blood. She has no chest pressures of breath Review of Systems Constitutional: Reports: no symptoms. EENTM: Reports: no symptoms. Cardiovascular: Reports: no symptoms. Respiratory: Reports: no symptoms. Gastrointestinal: Reports: no symptoms. Genitourinary: Reports: see HPI. Musculoskeletal: Reports: see HPI. Skin: Reports: no symptoms. Neurological/Psychological: Reports: no symptoms. Hematologic/Endocrine: Reports: no symptoms. Immunologic/Allergic: Reports: no symptoms. Objective Last 24 Hrs of Vital Signs/I&O Vital Signs Date Time Temp Pulse Resp B/P B/P Pulse O2 O2 Flow FiO2 Mean Ox Delivery Rate 02/02 0600 97.7 62 20 146/66 92 02/01 2208 98.3 70 20 128/70 96 Room Air 02/01 2110 68 140/68 02/01 1351 98.1 60 18 110/50 95 Room Air 02/01 1341 62 110/50 02/01 1040 50 120/62 02/01 0729 98.0 61 18 138/63 94 Room Air Intake & Output 02/02 0800 02/02 0000 02/01 1600 Intake Total 1800 610 Output Total 300 450 Balance 1500 160 Intake, IV 10 Intake, Oral 1800 600 Number 1 0 Bowel Movements Output, Urine 300 450 Patient 57.748 kg Weight Weight Bed scale Measurement Method Physical Exam General Appearance: Alert, Oriented X3, Cooperative, No Acute Distress Cardiovascular: Regular Rate, Normal S1, Normal S2 Lungs: Clear to Auscultation Abdomen: Normal Bowel Sounds, Soft, No Tenderness Extremities: No Edema, Tenderness to palpation RUE/shoulder, mild Current Medications: Current Medications Sig/Ck Start time Last Medication Dose Route Stop Time Status Admin Albuterol Sulfate 2 PUF Q4-6 PRN PRN 01/31 0145 AC INH Allopurinol 300 MG DAILY 01/31 0900 AC 02/01 PO 1034 Amiodarone HCl 100 MG DAILY 01/31 0900 AC 02/01 PO 1341 Atorvastatin Calcium 80 MG 1700 01/31 1700 AC 02/01 PO 1752 Bisacodyl 10 MG 5PM 02/01 1700 AC 02/01 PO 1752 Duloxetine HCl 60 MG DAILY 01/31 0900 AC 02/01 PO 1034 Fentanyl Citrate 75 MCG Q3D 01/31 0145 AC 01/31 TOP 0226 Levothyroxine Sodium 0.125 MG DAILY 01/31 0900 AC 02/01 PO 1034 Magnesium Oxide 400 MG BID 01/31 0900 AC 02/01 PO 2110 Metoprolol Tartrate 25 MG BID 01/31 09 AC 02/01 PO 2110 Morphine Sulfate 15 MG Q6P PRN 01/31 1215 AC 02/01 PO 1928 Polyethylene Glycol 0.5 GAL ONCE ONE 02/02 0600 CAN PO 02/02 0601 Polyethylene Glycol 0.5 GAL 1800,0600 02/01 1800 DC 02/02 PO 02/02 0601 0611 Tiotropium [place] 1 PUF DAILY 01/31 0900 AC 02/01 INH 1034 Tramadol HCl 50 MG TIDPRN 01/31 014 AC 02/01 PO 2116 Assessment/Plan Assessment: Ms. Lentz is a 78-year-old female with PMH of A. fib on apixiban and history of left breast cancer status post mastectomy who presented with 1 week of watery diarrhea mixed with bright red blood. Problem list: 1. Possible ulcerative colitis 2. Ductal carcinoma of the left breast with possible metastasis status post mastectomy #Possible ulcerative colitis: Patient presented with bright red blood per rectum. Gastroenterology evaluated and believes the CT scan is concerning for possible ulcerative colitis. We'll be doing a colonoscopy today. -Nothing by mouth pending colonoscopy -Hold apixiban -Monitor CBC -IV fluid gentle hydration -Appreciate gastroenterology recommendations #Ductal carcinoma of the left breast with possible metastasis status post mastectomy: Bone scan shows possible metastasis. -Appreciate hematology/oncology recommendations #Chronic medical problems: -TRC nebs -Continue other home medications DVT prophylaxis with Alps Nothing by mouth Full code Problem List: 1. Rectal bleeding Pain Ratin Pain Location: no Pain Goal: Remain pain free Pain Plan: no Tomorrow's Labs & Rationales: cbc # Paroxysmal A.fib on Eliquis and amiodarone, currently in sinus rhythm * Continue metoprolol and amlodipine * Hold the eliquis # Hypertension/hyperlipidemia/diabetes/hypothyroidism/COPD * Hold losartan until BP is high or no signs of bleeding. * Continue statin * Finger stick glucose check * Low NovoLog SS * Continue levothyroxin #Chronic pain syndrome and history of compression fractures * Continue fentanyl patch 75 mg every 3 days * Continue tramadol 50 mg 3 times a day when necessary -Full code -DVT PPx: no pharmacological given GI bleed, no ALPs until DVT r/o in am -clear liquid diet
[2018-02-02 08:50] LABS: ABSOLUTE BASOPHIL COUNT 0.1 /CUMM (0.0-0.2); ABSOLUTE EOSINOPHIL COUNT 0.4 /CUMM (0.0-0.7); ABSOLUTE GRANULOCYTE CT 5.2 /CUMM (1.4-6.5); ABSOLUTE LYMPH COUNT 1.6 /CUMM (1.2-3.4); ABSOLUTE MONOCYTE COUNT 0.7 /CUMM (0.10-0.60); BASOPHIL % 1.1 % (0.0-2.0); EOSINOPHIL % 4.6 % (0-5); HEMATOCRIT 31.3 % (37-47); MEAN CORPUSCULAR HGB CONC 31.6 G/DL (33.0-37.0); MEAN CORPUSCULAR VOLUME 82.3 FL (81.0-99.0); MEAN PLATELET VOLUME 9.4 FL (7.4-10.4); PLATELET COUNT 274 /CUMM (130-400); RBC DISTRIBUTION WIDTH 21.1 % (11.5-14.5); RED BLOOD CELL CT 3.81 /CUMM (4.20-5.40); WHITE BLOOD CELL COUNT 7.9 /CUMM (4.8-10.8)
--- NOTE | 2018-02-02 13:51 | Proc Note Colonoscopy ---
Colonoscopy Procedure Medical History: unchanged (see meditech consult) Mental Status: alert/oriented Heart/Lung Eval Prior to Sedation: within normal limits Candidate for Sedation? Yes Date of Last Colonoscopy: 2014 Procedure Date: 02/02/18 Procedure Type: flexible sigmoid with biopsies [place]: Bernardino Adorno MD ASA Classification: III Indications: Bloody diarrhea. Polyp surveillance. Instrument (Colonoscope): single channel Meds Received: MAC Patient's Tolerance: good Complications: none Extent Reached: 30 cm from the anus Prep: poor Procedure: The risks of a colonoscopy was explained to the patient including, but not limited to, the risks of perforation, bleeding and/or a missed lesion and then written informed consent was obtained. After getting written informed consent the patient was placed in the left lateral decubitus position with pulse oximetry, cardiac monitoring, and supplemental oxygen was given. IV sedation was given until the desired effect was achieved. A rectal exam was performed which revealed moderate sized prolapsed external hemorrhoids and a small degree of rectal prolapse. A high definition variable stiffness Olympus colonoscope was then inserted into the anus and advanced to the sigmoid colon with little difficulty at which point a significant amount of solid stool was encountered so that the scope could not be safely advanced further. Retroflexed views were obtained and photodocumentation was obtained. Close inspection of the colonic mucosa was performed on insertion and withdrawal of the colonoscope with a withdrawal time that was adequate in length to closely inspect all folds and [place] of the colon. Findings: The distal rectal mucosa was partially prolapsed and moderately erythematous, but it was not ulcerated. The remainder of the colonic mucosa to approximately 30 cm from the anus was grossly normal in appearance. There was solid stool appreciated at 30 cm the anus and the scope could not be advanced further. Random biopsies were obtained from the sigmoid colon and from the distal rectum with cold biopsy forceps and were sent to pathology for further evaluation. Limited retroflexed views in the rectum revealed small internal hemorrhoids been mildly erythematous mucosa related to her rectal prolapse. Impression: 1. Moderate external hemorrhoids with rectal prolapse and nonspecific proctitis status post biopsies. 2. Normal colonic mucosa to 30 cm from the anus status post random biopsies. 3. Prep with solid stool appreciated in the sigmoid colon that the scope could not be advanced further. Recommendations: 1. Would advance diet as tolerated. 2. Administer local/topical care for hemorrhoidal bleeding as needed and consideration may be given for a colorectal surgery consult 3. Follow up the pathology results with me as an outpatient. 4. She may use Imodium as needed for any significant diarrhea. 5. There are no absolute GI contraindication to resuming anticoagulation if it is medically indicated. 6. Consideration may be given for a full colonsocopy with a more extensive bowel regimen as an outpatient for polyp surveillance or for diagnostic purposes if her symptoms persist if she is willing. CC: Asaf SILVERIO,Karen
[2018-02-02 14:50] VITALS: BP 138/74
--- NOTE | 2018-02-02 21:53 | RADIOLOGY REPORT ---
EXAMINATION: XR PORTABLE CHEST CLINICAL INFORMATION: Fluid overload. Wheezing. COMPARISON: Chest x-ray 11/28/2017 TECHNIQUE: Portable frontal view of the chest was obtained. 9:29 PM FINDINGS: The heart size is enlarged. There is no acute abnormality. No pulmonary vascular congestion. No infiltrate or pleural effusion. Dextroscoliosis of the spine with multilevel degenerative disc height narrowing and endplate spurring. Surgical clips over the left chest. Compared to the prior chest x-ray there has been no change. IMPRESSION: No acute abnormality of the chest.
[2018-02-02 22:36] VITALS: BP 105/60
--- NOTE | 2018-02-03 07:05 | PN- Housestaff ---
See Addendum Subjective Follow-up For: Hemorrhoids Subjective: No overnight events, patient slept well last night. No further bloody diarrhea. She feels ready to go home. Review of Systems Constitutional: Reports: no symptoms. EENTM: Reports: no symptoms. Cardiovascular: Reports: no symptoms. Respiratory: Reports: no symptoms. Gastrointestinal: Reports: no symptoms. Genitourinary: Reports: no symptoms. Musculoskeletal: Reports: no symptoms. Skin: Reports: no symptoms. Neurological/Psychological: Reports: no symptoms. Hematologic/Endocrine: Reports: no symptoms. Immunologic/Allergic: Reports: no symptoms. Objective Last 24 Hrs of Vital Signs/I&O Vital Signs Date Time Temp Pulse Resp B/P B/P Pulse O2 O2 Flow FiO2 Mean Ox Delivery Rate 02/03 0000 Room Air 02/02 2236 98.0 60 16 105/60 89 Room Air 02/02 2134 60 105/60 02/02 1850 91 Room Air 02/02 1600 Room Air 02/02 1450 97.7 64 19 138/74 92 Room Air 02/02 1144 Room Air Room Air 02/02 0800 Room Air Intake & Output 02/03 0800 02/03 0000 02/02 1600 Intake Total 690 857 7457 Output Total Balance 570 563 8907 Intake, IV 10 300 Intake, Oral 184 518 1353 Number 1 4 8 Bowel Movements Patient 59.194 kg 57.748 kg Weight Weight Bed scale Measurement Method Physical Exam General Appearance: Alert, Oriented X3, Cooperative, No Acute Distress Cardiovascular: Regular Rate, Normal S1, Normal S2 Lungs: Clear to Auscultation Abdomen: Normal Bowel Sounds, Soft, No Tenderness Extremities: No Edema, Normal Pulses, No Tenderness/Swelling Current Medications: Current Medications Sig/Ck Start time Last Medication Dose Route Stop Time Status Admin Albuterol Sulfate 3 ML BID 02/02 2100 AC 02/02 INH 1850 Albuterol Sulfate 2 PUF Q4-6 PRN PRN 01/31 0145 AC 02/02 INH 0812 Allopurinol 300 MG DAILY 01/31 09 AC 02/02 PO 0801 Amiodarone HCl 100 MG DAILY 01/31 09 AC 02/02 PO 0801 Apixaban 5 MG BID 02/02 2100 AC 02/02 PO 2134 Aspirin Buffered 81 MG DAILY 02/03 0900 AC PO Atorvastatin Calcium 80 MG 1700 01/31 1700 AC 02/02 PO 1628 Bisacodyl 10 MG 5PM 02/01 1700 AC 02/02 PO 1628 Chlorhexidine 1 GM .STK-MED ONE 02/02 1402 DC Gluconate TOP 02/02 1403 Duloxetine HCl 60 MG DAILY 01/31 0900 AC 02/02 PO 0801 Fentanyl Citrate 75 MCG Q3D 01/31 0145 AC 02/03 TOP 0122 Furosemide 40 MG .STK-MED ONE 02/02 1618 DC PO 02/02 1619 Furosemide 40 MG DAILY 02/02 1518 AC 02/02 PO 1627 Levothyroxine Sodium 0.125 MG DAILY 01/31 0900 AC 02/02 PO 0801 Magnesium Oxide 400 MG BID 01/31 0900 AC 02/02 PO 2134 Metoprolol Tartrate 25 MG BID 01/31 09 AC 02/02 PO 2134 Morphine Sulfate 15 MG Q6P PRN 01/31 1215 AC 02/01 PO 1928 Tiotropium [place] 1 PUF DAILY 01/31 0900 AC 02/02 INH 0801 Tramadol HCl 50 MG TIDPRN 01/31 0145 AC 02/02 PO 0801 Last 24 Hrs of Lab/Anthony Results Last 24 Hrs of Labs/Mics: Laboratory Tests 02/02/18 0800: CBC w Diff NO MAN DIFF REQ, RBC 3.81 L, MCV 82.3, MCH 26.0 L, MCHC 31.6 L, RDW 21.1 H, MPV 9.4, Gran % 65.0, Lymphocytes % 20.2 L, Monocytes % 9.1, Eosinophils % 4.6, Basophils % 1.1, Absolute Granulocytes 5.2, Absolute Lymphocytes 1.6, Absolute Monocytes 0.7 H, Absolute Eosinophils 0.4, Absolute Basophils 0.1 Assessment/Plan Assessment: Ms. Lentz is a 78-year-old female with PMH of A. fib on apixiban, DM, and history of left breast cancer status post mastectomy who presented with 1 week of watery diarrhea mixed with bright red blood. Problem list: 1. Moderate external hemorrhoids with rectal prolapse 2. Ductal carcinoma of the left breast with possible metastasis status post mastectomy #Moderate external hemorrhoids with rectal prolapse: Patient presented with bright red blood per rectum. Gastroenterology evaluated and believed the CT scan was concerning for possible ulcerative colitis. Colonoscopy was performed and revealed moderate external hemorrhoids with rectal prolapse and nonspecific proctitis status post biopsies and normal colonic mucosa to 30 cm from the anus status post random biopsies. Of note, prep with solid stool appreciated in the sigmoid colon that the scope could not be advanced further. This morning, she is feeling better. -Advance diet as tolerated, high-fiber diet eventually with psyllium supplement -Resume apixiban and aspirin -Monitor CBC -Appreciate gastroenterology recommendations -Appreciate colorectal surgery recommendations #Ductal carcinoma of the left breast with possible metastasis status post mastectomy: Bone scan shows possible metastasis. -Appreciate hematology/oncology recommendations #Chronic medical problems: -TRC nebs -Continue other home medications DVT prophylaxis with Alps Advance diet as tolerated, eventually high-fiber consistent carbohydrate Full code Problem List: 1. Hemorrhoids 2. Rectal prolapse Pain Ratin Pain Location: no Pain Goal: Remain pain free Pain Plan: no Tomorrow's Labs & Rationales: no
--- NOTE | 2018-02-03 07:08 | Patient Discharge Instructions ---
Discharge Instructions General Discharge Information You were seen/treated for: Hemorrhoids Watch for these problems: Fever, chest pain, shortness of breath Special Instructions: Please take all medications as directed. Please follow-up with primary care and gastroenterology Diet Continue normal diet: Yes Recommended Diet: high fiber Activity Full Activity/No Limits: Yes Acute Coronary Syndrome Inclusion Criteria At DC or during hospital stay patient has or had the following: ACS DIAGNOSIS No Discharge Core Measures Meds if any: Prescribed or Continued at Discharge Meds if any: NOT Prescribed or Continued at Discharge Congestive Heart Failure Inclusion Criteria At DC or during hospital stay patient has or had the following: CHF DIAGNOSIS No Discharge Core Measures Meds if any: Prescribed or Continued at Discharge Meds if any: NOT Prescribed or Continued at Discharge Cerebrovascular accident Inclusion Criteria At DC or during hospital stay patient has or had the following: CVA/TIA Diagnosis No Discharge Core Measures Meds if any: Prescribed or Continued at Discharge Meds if any: NOT Prescribed or Continued at Discharge Venous thromboembolism Inclusion Criteria VTE Diagnosis No VTE Type NONE VTE Confirmed by (Test) NONE Discharge Core Measures - Per Current guidelines, there needs to be overlap - treatment for the first 5 days of Warfarin therapy. - If discharged on Warfarin prior to 5 days of - overlap therapy, the patient will need to be - assessed for post discharge needs including - *Post discharge parental anticoagulation - *Warfarin and/or parental anticoagulation education - *Follow up date to check INR post discharge At least 5 days overlap therapy as Inpatient No Meds if any: Prescribed or Continued at Discharge Note: Overlap Therapy is Warfarin and Anticoagulant Meds if any: NOT Prescribed or Continued at Discharge
[2018-02-03 07:22] VITALS: BP 120/70
[2018-02-03] MEDS ORDERED: METAMUCIL FIBE3.4 GM PO ×2 (07:40→09:43)
--- NOTE | 2018-02-03 07:55 | Discharge Summary ---
Visit Information Visit Dates Admission Date: 01/30/18 Discharge Date: 02/03/18 Hospital Course Course Attending Physician: Ramandeep Macias MD Primary Care Physician: Asaf SILVERIO,[facility] Hospital Course: Ms. Lentz is a 78-year-old female with PMH of A. fib on apixiban, DM, and history of left breast cancer status post mastectomy who presented with 1 week of watery diarrhea mixed with bright red blood. Admission Data: Vitals stable. Exam: awake alert oriented, no distress, pallor+, mucosa dry, Chest clear, Heart S1S2 regular, Abd soft, tenderness in right lower quadrant and periumbilical region, LE: b/l 2+ pedal edema, with chronic venous stasis changes on left leg more prominent that right leg. Rectal: guaiac positive, hemorrhoids+. Labs: H/H 8.0/26.5 (baseline 8- 29), microcytic anemia, INR 1.43, Na 135, bicarb 32, glucose 128, lactic acid 1.3, trop neg. CT abd/pelvis: significant diffuse colitis of sigmoid and rectum. No air in the bowel wall. EKG: being read as Afib however appears Sinus rhythm with baseline artifact. Echo (2018): EF 40%, with severe anteroseptal hypokinesis, mild to moderate MR, pulmonary hypertension. She was admitted to general medicine and treated for the following problems: 1. BRBPR, GIB and Acute blood loss anemia Colonoscope showed Moderate external hemorrhoids with rectal prolapse 2. Ductal carcinoma of the left breast status post mastectomy #Moderate external hemorrhoids with rectal prolapse: Patient presented with bright red blood per rectum. Gastroenterology evaluated and believed the CT scan was concerning for possible ulcerative colitis. Colonoscopy was performed and revealed moderate external hemorrhoids with rectal prolapse and nonspecific proctitis status post biopsies and normal colonic mucosa to 30 cm from the anus status post random biopsies. Of note, prep with solid stool appreciated in the sigmoid colon that the scope could not be advanced further. She was started on a high-fiber diet with psyllium supplement and her apixiban and aspirin were resumed. Her symptoms subsequently improved. She should follow-up with gastroenterology. She did receive RBC transfusion for Acute blood loss anemia. #Ductal carcinoma of the left breast status post mastectomy: Bone scan which was ordered by Dr. Orell shows possible metastasis. Hematology/oncology follow up as an outpatient. #Chronic medical problems: Her other home medications were continued. Her losartan dose was decreased to 25mg daily for normal blood pressure readings. Follow up with PCP. Allergies: Coded Allergies: NO KNOWN ALLERGIES (NKDA) (06/12/13) Disposition Summary Disposition Principal Diagnosis: 1. Moderate external hemorrhoids with rectal prolapse Additional Diagnosis: 2. Ductal carcinoma of the left breast with possible metastasis status post mastectomy Discharge Disposition: home health services Discharge Instructions General Discharge Information Code Status: Full Code Patient's Diet: Diabetic, high fiber Patient's Activity: As tolerated Follow-Up Instructions/Appts: Please take all medications as directed. Please follow up with gastroenterology and primary care. Please follow-up with hematology/oncology. Medications at Discharge Discharge Medications: Stop taking the following medications: Losartan Potassium (Losartan Potassium) 50 MG TABLET ORAL DAILY Qty = 90 Continue taking these medications: Metoprolol Tartrate (Metoprolol Tartrate) 25 MG TABLET 1 Tablet ORAL TWICE DAILY Qty = 180 Comments: Last Taken: 02/03/18 Time: 8:30 AM Aspirin (Ecotrin*) 81 MG TABLET.DR 1 Tablet ORAL Every Morning Comments: Last Taken: 02/03/18 Time: 8:30 AM Furosemide (Furosemide) 40 MG TABLET 1 Tablet ORAL Every Morning Qty = 90 Comments: Last Taken: 02/03/18 Time: 8:30 AM Duloxetine HCl (Duloxetine HCl) 30 MG CAPSULE.DR 2 Tablet ORAL DAILY Qty = 90 Instructions: SWITCHED FROM 3 PILLS (90MG) TO 2 PILLS (60MG) DAILY Comments: Last Taken: 02/03/18 Time: 8:30 AM Allopurinol (Allopurinol) 300 MG TABLET 1 Tablet ORAL DAILY Qty = 30 Comments: Last Taken: 02/03/18 Time: 8:300 AM Calcium Carbonate (Calcium) 500 MG TABLET 1,500 Milligram ORAL DAILY Comments: NOT GIVEN IN HOSPITAL Cyanocobalamin (Vitamin B-12) 1,000 MCG TABLET 1 Tablet ORAL DAILY Comments: NOT GIVEN IN HOSPITAL Cholecalciferol (Vitamin D3) (Vitamin D3) 1,000 UNIT CAPSULE 1 Capsule ORAL Every Morning Comments: Last Taken: 12/01/17 Time: 9:20 AM [place]-3/Dha/Epa/Fish Oil (Fish Oil 1,000 MG Softgel) 1 EACH CAPSULE 1 Capsule ORAL DAILY Comments: NOT GIVEN IN HOSPITAL Fentanyl (Fentanyl) 75 MCG/HOUR PATCH.TD72 1 Patch On the skin Every 3 days Comments: Last Taken: 02/03/18 Time: 1:30 AM PATCH ON RIGHT SHOULDER Potassium Chloride (Potassium Chloride) 10 MEQ TABLET.ER 2 Tablet ORAL Every night Qty = 30 Comments: NOT GIVEN IN HOSPITAL Amiodarone HCl (Amiodarone HCl) 100 MG TABLET 1 Tablet ORAL DAILY Comments: Last Taken: 02/03/18 Time: 8:30 AM Magnesium Oxide (Magnesium Oxide) 400 MG TABLET 1 Tablet ORAL TWICE DAILY Comments: Last Taken: 02/03/18 Time: 8:30 AM Levothyroxine Sodium (Synthroid) 125 MCG TABLET 1 Tablet ORAL DAILY Comments: Last Taken: 02/03/18 Time: 8:30 AM Fulvestrant (Faslodex) 250 MG/5 ML SYRINGE MONTHLY Comments: NOT GIVEN IN HOSPITAL Morphine Sulfate (Morphine Sulfate) 30 MG TABLET 1 Tablet ORAL 4 TIMES A DAY Qty = 120 Comments: NOT GIVEN IN HOSPITAL Tiotropium [place] (Spiriva) 18 MCG CAP.W.DEV 1 Puff Inhale through mouth DAILY Qty = 1 Comments: Last Taken: 02/03/18 Time: 8:30 AM Atorvastatin Calcium (Atorvastatin Calcium) 80 MG TABLET 1 Tablet ORAL 5 PM Qty = 30 Comments: Last Taken: 02/02/18 Time: 4:30 PM Apixaban (Eliquis) 5 MG TABLET 1 Tablet ORAL TWICE DAILY Qty = 60 Comments: Last Taken: 02/03/18 Time: 8:30 AM Tramadol HCl (Tramadol HCl) 50 MG TABLET 1 Tablet ORAL THREE TIMES A DAY NEEDED Qty = 90 Comments: Last Taken: 02/02/18 Time: 8:00 AM Albuterol Sulfate (Proair Hfa) 90 MCG HFA.AER.AD 2 Puff Inhale through mouth EVERY 4-6 HOURS NEEDED as needed for SOB Qty = 9 Comments: Last Taken: 02/02/18 Time: 8:15 AM Start taking the following new medications: Losartan Potassium (Cozaar) 25 MG TABLET 1 Tablet ORAL DAILY Qty = 30 No Refills Instructions: . Comments: Last Taken: 02/03/18 Time: 10:00 AM Psyllium Hydrophy Sugar Free (Metamucil Fiber Singles Packet) 3.4 GRAM POWD.PACK 1 Packet ORAL DAILY Qty = 30 No Refills Instructions: . Comments: Last Taken: 02/03/18 Time: 10:00 AM Copies To: Jess SILVERIO,Blane Adorno MD,[place]
[2018-02-03 08:37] LABS: ABSOLUTE BASOPHIL COUNT 0.1 /CUMM (0.0-0.2); ABSOLUTE EOSINOPHIL COUNT 0.2 /CUMM (0.0-0.7); ABSOLUTE LYMPH COUNT 1.6 /CUMM (1.2-3.4); ABSOLUTE MONOCYTE COUNT 0.6 /CUMM (0.10-0.60); BASOPHIL % 0.7 % (0.0-2.0); EOSINOPHIL % 2.2 % (0-5); GRANULOCYTE % 71.2 % (42.2-75.2); HEMATOCRIT 31.4 % (37-47); MEAN CORPUSCULAR HGB 25.8 PG (27.0-31.0); MEAN CORPUSCULAR HGB CONC 31.5 G/DL (33.0-37.0); MEAN CORPUSCULAR VOLUME 81.8 FL (81.0-99.0); MEAN PLATELET VOLUME 9.3 FL (7.4-10.4); PLATELET COUNT 285 /CUMM (130-400); RBC DISTRIBUTION WIDTH 21.7 % (11.5-14.5); RED BLOOD CELL CT 3.84 /CUMM (4.20-5.40); WHITE BLOOD CELL COUNT 8.4 /CUMM (4.8-10.8)
[2018-02-03] MEDS ORDERED: COZAAR25 M1 PO ×2 (08:49→09:43)
[2018-02-03 10:00] VITALS: BP 120/70
== END 2018-02-03 11:10 | disposition home health service (06) | DRG 394 ==
LOC: ERH 20:24 → ERHI 23:07 → 2NB 23:07 → ENRESERV 01-31 00:28 → 2NB 01-31 01:11 → ENPENDDIS 02-03 09:49 → 2NB 02-03 11:10 → ENTRNSPT 02-03 11:16 → EDTRNSPT 02-03 11:42 → EDTRNSPTSTS 02-03 11:42 → CMPTRNSPT 02-03 12:09
PROVIDERS: Emergency Medicine; Internal Medicine; Radiology Vascular & Interventional Radiology; Student in an Organized Health Care Education/Training Program
PROC: 30233N1 Transfusion of Nonautologous Red Blood Cells into Peripheral Vein, Percutaneous Approach (ICD-10-PCS; 2018-01-31)
PROC: 0DBQ8ZX Excision of Anus, Via Natural or Artificial Opening Endoscopic, Diagnostic (ICD-10-PCS; principal; 2018-02-02)
PROC: 0DBN8ZX Excision of Sigmoid Colon, Via Natural or Artificial Opening Endoscopic, Diagnostic (ICD-10-PCS; principal; 2018-02-02)
PROC: 0DBP8ZX Excision of Rectum, Via Natural or Artificial Opening Endoscopic, Diagnostic (ICD-10-PCS; principal; 2018-02-02)
DX: D12.5 Benign neoplasm of sigmoid colon (principal); K51.90 Ulcerative colitis, unspecified, without complications; I27.20 Pulmonary hypertension, unspecified; I11.0 Hypertensive heart disease with heart failure; C79.51 Secondary malignant neoplasm of bone; D62 Acute posthemorrhagic anemia; I48.0 Paroxysmal atrial fibrillation; I50.22 Chronic systolic (congestive) heart failure; K64.4 Residual hemorrhoidal skin tags; Z85.3 Personal history of malignant neoplasm of breast; Z79.01 Long term (current) use of anticoagulants; I25.10 Atherosclerotic heart disease of native coronary artery without angina pectoris; Z98.61 Coronary angioplasty status; Z90.12 Acquired absence of left breast and nipple; Z92.3 Personal history of irradiation; Z92.21 Personal history of antineoplastic chemotherapy; E78.5 Hyperlipidemia, unspecified; K21.9 Gastro-esophageal reflux disease without esophagitis; E03.9 Hypothyroidism, unspecified; E11.9 Type 2 diabetes mellitus without complications; G89.4 Chronic pain syndrome; Z79.82 Long term (current) use of aspirin; Z79.891 Long term (current) use of opiate analgesic; Z79.51 Long term (current) use of inhaled steroids; J44.9 Chronic obstructive pulmonary disease, unspecified; I87.2 Venous insufficiency (chronic) (peripheral); F03.90 Unspecified dementia, unspecified severity, without behavioral disturbance, psychotic disturbance, mood disturbance, and anxiety; K62.3 Rectal prolapse; R19.7 Diarrhea, unspecified; D12.7 Benign neoplasm of rectosigmoid junction
CPT/HCPCS: 2NBP; ERO; 36415; 36592; 71045; 74177; 81001; 82436; 86920; 93005; 93010; 93970; 96360; 96361; J3490; P9016